=== PATIENT | male | born 1970 | race Two or more races ===

== ENCOUNTER 2020-08-14 11:52 | Outpatient (REF) | payer OTHER, SELFPAY ==
[2020-08-14 12:45] LABS: Basophils Percent Auto 0.5 % (0-2); MANUAL DIFF FLAG SCAN; Neutrophils Absolute Auto 1.1 X10*3/uL (2.0-8.3); PLT CLUMP 1; SCAN SMEAR FLAG 1
[2020-08-14 12:47] LABS: Eosinophils Percent Auto 1.4 % (0-4); Hematocrit 41.8 % (42-52); Hemoglobin 14.2 g/dl (14.0-18.0); Imm Gran Abs Auto 0.01 X10*3/uL (0.00-0.03); Imm Gran Pct Auto 0.5 % (0.0-0.4); Lymphocytes Absolute Auto 0.7 X10*3/uL (1.2-4.9); Lymphocytes Percent Auto 33.3 % (20-40); Mean Corpuscular Hemoglobin 29.9 pg (27.0-33.0); Mean Platelet Volume 10.7 fL (9.4-12.4); Monocytes Absolute Auto 0.2 X10*3/uL (0.1-1.2); Monocytes Percent Auto 10.6 % (2-11); Neutrophils Percent Auto 53.7 % (45-73); Red Blood Count 4.75 X10*6/uL (4.60-5.80)
[2020-08-14 12:49] LABS: Appearance Urine CLEAR; Color Urine YELLOW; Glucose Urine UA >=1000 MG/DL (NEG); Leukocyte Esterase Urine NEG (NEG); Nitrite Urine NEG (NEG); Urine Blood NEG (NEG); Urine Ketones NEG (NEG); Urine Protein NEG (NEG-TRACE)
[2020-08-14 12:50] LABS: Platelet Count 50 X10*3/uL (160-400); White Blood Count 2.1 X10*3/uL (4.8-10.8)
[2020-08-14 12:57] LABS: RBC Urine 0 /HPF (0); WBC Urine 0 /HPF (0-4)
[2020-08-14 13:18] LABS: Alanine Aminotransferase 25 U/L (0-40); Albumin Level 3.7 g/dL (3.5-5.0); Alkaline Phosphatase 149 U/L (39-117); Anion Gap 11 (12-20); Aspartate Amino Transferase 27 U/L (5-37); Bilirubin Total 1.1 mg/dL (0.0-1.0); Blood Urea Nitrogen 10 mg/dL (9-16); Calcium 8.5 mg/dL (8.4-10.2); Carbon Dioxide 29 mmol/L (22-29); Chloride 99 mmol/L (96-108); Cholesterol 185 mg/dL; Estimated Glomerular Filt Rate > 60; Glucose Fasting 332 mg/dL (60-99); HDL Cholesterol 29 mg/dL; Potassium 4.1 mmol/l (3.3-5.1); Sodium 135 mmol/L (135-145); Triglycerides 431 mg/dL
[2020-08-14 13:20] LABS: SLIDE REVIEW VERIFIED
[2020-08-14 13:32] LABS: TSH reflex Free T4 1.67 mIU/mL (0.32-4.0)
== END 2020-08-14 11:53 | disposition home or self-care (01) ==
LOC: HO.LAB 11:52
PROVIDERS: PCP Internal Medicine; Visit Provider Internal Medicine
DX: E78.5 Hyperlipidemia, unspecified (principal); E66.9 Obesity, unspecified; E55.9 Vitamin D deficiency, unspecified; D69.6 Thrombocytopenia, unspecified; D70.9 Neutropenia, unspecified; E11.9 Type 2 diabetes mellitus without complications; R16.1 Splenomegaly, not elsewhere classified
CPT/HCPCS: 36415; 80053; 80061; 81001; 82306; 84443; 85025; 85060

== ENCOUNTER 2021-11-06 13:30 | Outpatient (REF) | payer OTHER, SELFPAY ==
[2021-11-06 14:47] LABS: PLT CLUMP 1; SCAN SMEAR FLAG 1
[2021-11-06 14:48] LABS: Appearance Urine CLEAR; Color Urine YELLOW; Glucose Urine UA >=1000 MG/DL (NEG); Leukocyte Esterase Urine NEG (NEG); Nitrite Urine NEG (NEG); PH 6.5 (5.0-8.0); Urine Blood NEG (NEG); Urine Ketones NEG (NEG); Urine Protein NEG (NEG-TRACE)
[2021-11-06 14:49] LABS: Eosinophils Percent Auto 0.8 % (0-4); Hematocrit 42.7 % (42.0-52.0); Hemoglobin 14.6 g/dl (14.0-18.0); Imm Gran Abs Auto 0.01 X10*3/uL (0.00-0.03); Imm Gran Pct Auto 0.8 % (0.0-0.4); Lymphocytes Absolute Auto 0.5 X10*3/uL (1.2-4.9); Lymphocytes Percent Auto 35.9 % (20-40); MANUAL DIFF FLAG SCAN; Mean Corpuscular HGB Conc 34.2 g/dl (31.0-36.0); Mean Corpuscular Hemoglobin 30.2 pg (27.0-33.0); Mean Corpuscular Volume 88.4 fL (80.0-98.0); Monocytes Absolute Auto 0.2 X10*3/uL (0.1-1.2); Monocytes Percent Auto 11.7 % (2-11); Neutrophils Absolute Auto 0.7 x10*3/uL (2.0-8.3); Neutrophils Percent Auto 50.8 % (45-73); Red Blood Count 4.83 X10*6/uL (4.60-5.80); Red Cell Distribution Width 12.7 % (11.0-16.0)
[2021-11-06 14:54] LABS: RBC Urine 0 /HPF (0); Squamous Epithelial Cell Urine TRACE /LPF; WBC Urine 0-2 /HPF (0-4)
[2021-11-06 14:57] LABS: Estimated Average Glucose 269 mg/dL
[2021-11-06 14:58] LABS: Platelet Count 47 X10*3/uL (160-400)
[2021-11-06 14:59] LABS: White Blood Count 1.3 X10*3/uL (4.8-10.8)
[2021-11-06 15:10] LABS: Creatinine Urine 59.65 mg/dL; Microalbumin Urine < 5.0 mg/L
[2021-11-06 15:13] LABS: SLIDE REVIEW VERIFIED
[2021-11-06 15:37] LABS: TSH reflex Free T4 1.23 uIU/mL (0.32-4.0); Vitamin D 25-OH Total 9.5 ng/mL (>30)
[2021-11-06 15:41] LABS: Alanine Aminotransferase 33 U/L (0-40); Albumin Level 3.7 g/dL (3.5-5.0); Alkaline Phosphatase 130 U/L (39-117); Anion Gap 13 (12-20); Aspartate Amino Transferase 38 U/L (5-37); Bilirubin Total 1.2 mg/dL (0.0-1.0); Blood Urea Nitrogen 11 mg/dL (9-16); Calcium 9.2 mg/dL (8.4-10.2); Carbon Dioxide 29 mmol/L (22-29); Chloride 101 mmol/L (96-108); Cholesterol 163 mg/dL; Estimated Glomerular Filt Rate > 60; Glucose Fasting 339 mg/dL (60-99); HDL Cholesterol 20 mg/dL; Potassium 3.7 mmol/L (3.3-5.1); Sodium 139 mmol/L (135-145); Total Protein 7.1 g/dL (6.5-8.0); Triglycerides 467 mg/dL
== END 2021-11-06 13:31 | disposition home or self-care (01) ==
LOC: HO.LAB 13:30
PROVIDERS: PCP Internal Medicine; Visit Provider Internal Medicine
DX: I10 Essential (primary) hypertension (principal); E55.9 Vitamin D deficiency, unspecified; E78.00 Pure hypercholesterolemia, unspecified; E11.9 Type 2 diabetes mellitus without complications
CPT/HCPCS: 36415; 80053; 80061; 81001; 82043; 82306; 83036; 84443; 85025

== ENCOUNTER 2022-02-18 14:55 | Outpatient (REF) | payer OTHER, SELFPAY ==
[2022-02-18 15:55] LABS: Basophils Absolute Auto 0.1 X10*3/uL (0.0-0.2); Basophils Percent Auto 0.8 % (0-2); Eosinophils Absolute Auto 0.3 X10*3/uL (0.0-0.4); Eosinophils Percent Auto 2.1 % (0-4); Hematocrit 37.6 % (42.0-52.0); Hemoglobin 13.4 g/dl (14.0-18.0); Imm Gran Abs Auto 0.28 X10*3/uL (0.00-0.03); Imm Gran Pct Auto 2.1 % (0.0-0.4); Lymphocytes Absolute Auto 1.1 X10*3/uL (1.2-4.9); Lymphocytes Percent Auto 7.9 % (20-40); MANUAL DIFF FLAG SCAN; Mean Corpuscular HGB Conc 35.6 g/dl (31.0-36.0); Mean Corpuscular Hemoglobin 29.3 pg (27.0-33.0); Mean Corpuscular Volume 82.1 fL (80.0-98.0); Mean Platelet Volume 9.6 fL (9.4-12.4); Monocytes Absolute Auto 1.7 X10*3/uL (0.1-1.2); Monocytes Percent Auto 12.3 % (2-11); Neutrophils Absolute Auto 10.1 x10*3/uL (2.0-8.3); Neutrophils Percent Auto 74.8 % (45-73); Platelet Count 130 X10*3/uL (160-400); Red Blood Count 4.58 X10*6/uL (4.60-5.80); SCAN SMEAR FLAG 1; White Blood Count 13.5 X10*3/uL (4.8-10.8)
[2022-02-18 16:02] LABS: Estimated Average Glucose 194 mg/dL; Hemoglobin A1c % 8.4 %
[2022-02-18 16:23] LABS: SLIDE REVIEW VERIFIED
[2022-02-18 16:28] LABS: Alanine Aminotransferase 15 U/L (0-40); Albumin Level 3.1 g/dL (3.5-5.0); Alkaline Phosphatase 163 U/L (39-117); Anion Gap 15 (12-20); Aspartate Amino Transferase 25 U/L (5-37); Bilirubin Total 2.6 mg/dL (0.0-1.0); Blood Urea Nitrogen 10 mg/dL (9-16); Calcium 8.6 mg/dL (8.4-10.2); Carbon Dioxide 25 mmol/L (22-29); Chloride 88 mmol/L (96-108); Cholesterol 66 mg/dL; Estimated Glomerular Filt Rate > 60; Glucose Random 360 mg/dL (60-115); HDL Cholesterol 5 mg/dL; LDL Cholesterol Calculated 29 mg/dl; Sodium 124 mmol/L (135-145); Total Protein 6.2 g/dL (6.5-8.0); Triglycerides 163 mg/dL
[2022-02-18 16:33] LABS: TSH reflex Free T4 1.98 uIU/mL (0.32-4.0); Vitamin D 25-OH Total 8.5 ng/mL (>30)
[2022-02-18 17:31] LABS: Appearance Urine CLEAR; Color Urine YELLOW; Glucose Urine UA >=1000 MG/DL (NEG); Leukocyte Esterase Urine NEG (NEG); Nitrite Urine NEG (NEG); Specific Gravity - Urine <= 1.005 (1.005-1.025); Urine Blood NEG (NEG); Urine Ketones 5 MG/DL (NEG); Urine Protein NEG (NEG-TRACE)
[2022-02-18 17:53] LABS: RBC Urine 0-2 /HPF (0); Squamous Epithelial Cell Urine TRACE /LPF; WBC Urine 0-2 /HPF (0-4)
[2022-02-19 07:13] LABS: Creatinine Urine 69.66 mg/dL; Microalbumin Urine < 5.0 mg/L
== END 2022-02-18 14:56 | disposition home or self-care (01) ==
LOC: HO.LAB 14:55
PROVIDERS: PCP Internal Medicine; Visit Provider Internal Medicine
DX: I10 Essential (primary) hypertension (principal); L03.115 Cellulitis of right lower limb; E78.00 Pure hypercholesterolemia, unspecified; E11.9 Type 2 diabetes mellitus without complications; E55.9 Vitamin D deficiency, unspecified
CPT/HCPCS: 36415; 80053; 80061; 81001; 81003; 82043; 82306; 83036; 84443; 85025

== ENCOUNTER 2022-04-09 17:16 | Emergency (ER) | payer OTHER, SELFPAY ==
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
[2022-04-09 17:32] VITALS: BP 154/79; PULSE 100; RESP 19; TEMP 36.6; O2SAT 98; BMI 24.3
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
[2022-04-09] MEDS: Cyclobenzaprine HCl 10 MG TABLET PO (18:34)
== END 2022-04-09 19:23 | disposition home or self-care (01) ==
PROVIDERS: Emergency Provider Emergency Medicine; PCP Internal Medicine
DX: S13.4XXA Sprain of ligaments of cervical spine, initial encounter (principal); V43.52XA Car driver injured in collision with other type car in traffic accident, initial encounter; Y93.9 Activity, unspecified; Y92.410 Unspecified street and highway as the place of occurrence of the external cause; Y99.9 Unspecified external cause status
CPT/HCPCS: 73030; 99283

== ENCOUNTER 2023-03-09 13:40 | Outpatient (AMB) | payer OTHER, SELFPAY ==
[2023-03-09 13:51] VITALS: BP 160/90; PULSE 94; O2SAT 99; BMI 28.5
--- NOTE | 2023-03-09 13:51 | MHC.PC.OV ---
Vital Signs 03/09/23 13:51 Height 5 ft 7 in Weight 182 lb BMI 28.5 BP 160/90 H Blood Pressure Location Lt brachial Position Sitting Pulse 94 Pulse Source Pulse Oximeter Pulse Oximetry (%) 99 Oxygen Delivery Method Room Air Intake Visit Reasons: PE Intake Note: Patient is here for a phyisical exam. Pharmaceutical Assistant Required: No Accompanied by: Self / Same As Patient Allergies penicillin G Allergy (Unknown, Verified 05/26/24 13:13) hives Medication List - Last Reconciled 03/09/23 by Jony Hernandez MD albuterol sulfate 90 mcg/actuation (ProAir HFA) 2 puffs PO QID PRN 30 days blood sugar diagnostic (FreeStyle Lite Strips) 1 strip miscellaneous TID blood sugar diagnostic (FreeStyle Lite Strips) As directed - test 3 times a day before meals blood-glucose meter (FreeStyle Lite Meter kit) As directed - test 3 times a day before meals to dose Humalog buprenorphine-naloxone 8-2 mg 3 film sublingual Q OTHER DAY PRN cyclobenzaprine 10 mg PO TID PRN doxycycline monohydrate 100 mg PO BID 10 days fenofibrate nanocrystallized 145 mg PO DAILY fluticasone propionate 220 mcg/actuation 2 puffs PO BID 30 days insulin aspart U-100 (Novolog FlexPen U-100 Insulin aspart) Inject up to 10 to 12 units 3 times a day with meals PER SLIDING SCALE subcut 3 times a day; 30 days insulin glargine (Lantus Solostar U-100 Insulin) 30 units (0.3 mL) subcut DAILY 30 days lancets As directed lancets (FreeStyle Lancets) As directed - test 3 times a day before meals lorazepam 0.5 mg PO BID PRN 30 days pen needle, diabetic As directed quetiapine 200 mg PO BEDTIME Tobacco use date assessed: 03/09/23 HPI PE HPI Details Patient comes in today for his annual physical examination - was last seen over a year ago on 02/18/2022 Patient states that he feels okay He denies any headaches or dizziness Denies any chest pains, no SOB No nausea/vomiting, no abdominal pain No change in bowel habits noted He denies any acute urinary symptoms He had the chronically infected hardware in his right thigh removed successfully back in December 2023 - states that his right thigh/right lower extremity has been feeling a lot better since He has not had a screening colonoscopy done in the past REPLACED BY [facility] Medical History (Updated 05/28/24 @ 18:42 by Jony Hernandez MD) Essential hypertension Broken femur Obesity (BMI 30-39.9) Thrombocytopenia Splenomegaly Overweight (BMI 25.0-29.9) Depression Anxiety Insomnia History of substance abuse Vitamin D deficiency History of hepatitis C Mixed hyperlipidemia Asthma Diabetes mellitus Surgical History No pertinent past surgical history Family History Father Liver failure Diabetes Hypertension CVD (cardiovascular disease) Mother Medical history unknown Social History Housing: Apartment Alcohol intake: never Patient Tobacco Use Status: Former Tobacco user e-Cigarette/Vaping Use: Never Used Second Hand Smoke Exposure: Yes service: No Current occupational status: disabled Cognitive needs: No Hearing needs: No Vision needs: Yes Questionnaire PHQ-9 Over the last 2 weeks, how often have you been bothered by any of the following problems? 1. Little interest or pleasure in doing things: several days 2. Feeling down, depressed, or hopeless: several days 3. Trouble falling or staying asleep, or sleeping too much: several days 4. Feeling tired or having little energy: several days 5. Poor appetite or overeating: several days 6. Feeling bad about yourself - or that you are a failure or have let yourself or your family down: not at all 7. Trouble concentrating on things, such as reading the newspaper or watching television: not at all 8. Moving or speaking so slowly that other people could have noticed. Or the opposite - being so fidgety or restless that you have been moving around a lot more than usual: not at all 9. Thoughts that you would be better off or of hurting yourself in some way: not at all Total score: 5 Depression Screening Interpretation: Positive Depression Screening Follow-up: Existing condition and In treatment 80625 - PHQ-9 Billing: Yes Source: Developed by Drs. Freddie Chau, Maritza B.Stephen Spears and colleagues, with an educational mt from [employer]. Thrive Questionnaire Date Thrive assessed: 03/09/23 I am a: Patient What is your living situation today?: I have a steady place to live Within the past 12 months, did the food you bought not last and you didn't have the money to get more?: Never true Within the past 12 months, did you worry whether your food would run out before you got money to buy more?: Never true Do you have trouble paying for medicines?: No Do you have trouble getting transportation to medical appointments?: No Do you have trouble paying your heating and electricity bill?: No Do you have trouble taking care of your child, family member or friend?: No Do you have trouble with day-to-day activities such as bathing, preparing meals, shopping, managing finances, etc.?: No Are you currently unemployed and looking for a job?: No Are you interested in more education?: No Please select the resources that you would like help with: None Currently or been in a relationship where the following occur: no concerns reported AUDIT C Alcohol Use Questionnaire (AUDIT-C) 1. How often do you have a drink containing alcohol?: Never 3. How often do you have six or more drinks on one occasion?: Never Total Score: 0 Score Reviewed/Action Taken: Yes SVITLANA-7 AMB Questionnaire SVITLANA-7 Date SVITLANA - 7 assessed: 03/09/23 Feeling nervous, anxious, or on edge: 1 = Several days Not being able to stop or control worryin = Several days Worrying too much about different things: 1 = Several days Trouble relaxin = Several days Being so restless that it is hard to sit still: 1 = Several days Becoming easily annoyed or irritable: 1 = Several days Feeling afraid as if something awful might happen: 1 = Several days Total SVITLANA-7 score (0-4 normal; 5-9 mild; 10-14 moderate; 15-21 severe): 7 Source: Developed by Drs. Freddie Chau, Stephen Mejias and colleagues, with an educational mt from [employer]. Review of Systems Const Denies chills, Denies fatigue, Denies fever(s), Denies headache(s), Denies malaise and Denies weakness Eyes Denies blurry vision, Denies change in vision, Denies irritation and Denies itchy eyes ENT Denies dysphagia, Denies dizziness, Denies otalgia, Denies headache(s), Denies nasal congestion, Denies neck pain, Denies odynophagia and Denies sore throat Card Denies chest pain, Denies rapid heart rate, Denies irregular heart rhythm, Denies palpitations and Denies dyspnea Resp Denies chest congestion, Denies cough, Denies dyspnea and Denies wheezing GI Denies abdominal pain, Denies bloating, Denies constipation, Denies dysphagia, Denies heartburn, Denies diarrhea, Denies nausea, Denies odynophagia and Denies vomiting Denies hematuria, Denies difficulty urinating, Denies dysuria, Denies urinary frequency and Denies urinary urgency Musc Denies back pain, Denies arthralgias, Denies joint swelling, Denies muscle weakness and Denies neck pain Skin/Breast Denies change in pigmentation, Denies lesions, Denies rash and Denies unusual bruising Neuro Denies dizziness, Denies headache(s), Denies paresthesias and Denies weakness Endo Denies fatigue and Denies palpitations Aller/Immun Denies itchy eyes and Denies wheezing Physical exam (Primary Care) Vital Signs: Last Vital Signs Pulse 94 03/09/23 13:51 BP 160/90 H 03/09/23 13:51 Pulse Ox 99 03/09/23 13:51 Oxygen Delivery Method Room Air 03/09/23 13:51 BMI result Body Mass Index 28.5 Tobacco/Smoking Status: Tobacco use Status Tobacco use date assessed 03/09/23 03/09/23 13:55 Patient Tobacco Use Status Former Tobacco user 03/09/23 13:55 e-Cigarette/Vaping Use Never Used 03/09/23 13:55 PHQ-9: PHQ-9 Score PHQ-9: Total score 5 08/17/23 19:16 Depression Screening Interpretation: Positive Depression Screening Follow-up: Existing condition and In treatment Thrive Assessment: Date of Thrive Assessment Date Thrive assessed 03/09/23 03/09/23 13:55 Currently or been in a relationship where the following occur: no concerns reported Const General: no acute distress, alert and awake Orientation/consciousness: patient oriented x3 HENMT Head: Yes normocephalic and Yes atraumatic Ears: external ears normal, TM's normal bilaterally and EAC's normal General nose exam: No nasal discharge present Face and sinus: Yes normal facial exam and Yes sinuses nontender Teeth and gingiva: dentition normal Throat: Yes posterior oropharynx normal and Yes tonsils normal (no TP congestion) Eyes Eyelids: Yes eyelids normal Conjunctivae: conjunctivae normal Pupils: Equal, round and reactive pupils present EOM: EOMs intact bilaterally Neck Neck: Yes no lymphadenopathy and Yes supple Thyroid: Thyroid normal Resp Auscultation: clear to auscultation bilaterally, no rales and no wheezes Cardio Rate: regular rate Rhythm: regular rhythm Heart sounds: no murmurs GI Palpation (GI): Soft to palpation, nontender and No hepatosplenomegaly present Auscultation: normal bowel sounds General: Yes no CVA tenderness Back/Spine/Pelvis Back: no CVA tenderness Thoracic/Lumbar Spine: thoracic and lumbar spine normal to inspection Skin Lesions: no lesions Rashes: no rashes Neuro General: patient oriented x3, moves all extremities, no focal motor deficits and CN's II-XI intact bilaterally Cranial nerves: Yes Equal, round and reactive pupils present Cognition (Neuro): normal cognition Gait exam (Neuro): Normal gait present Extrem General: Yes no clubbing, cyanosis or edema Assessment and Plan Assessment & Plan (1) Annual physical exam: Code(s): Z00.00 - Encounter for general adult medical examination without abnormal findings Plan: Check labs He has not had a screening colonoscopy done in the past (2) Diabetes mellitus: Code(s): E11.9 - Type 2 diabetes mellitus without complications Qualifiers: Diabetes mellitus complication status: with hyperglycemia 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 Jimenez) at [facility] as scheduled (3) Mixed hyperlipidemia: Code(s): E78.2 - Mixed hyperlipidemia Plan: Will recheck his fasting lipids [facility] for follow up Reinforced low cholesterol diet Continue Fenofibrate 145 mg QD (4) Essential hypertension: Code(s): I10 - Essential (primary) hypertension Plan: Reinforced low sodium diet - goal is systolic BP of at least 130 mm or less Will start patient on Losartan 50 mg QD (5) Asthma: Code(s): J45.909 - Unspecified asthma, uncomplicated Qualifiers: Asthma complication type: uncomplicated Asthma persistence: persistent Asthma severity: moderate Qualified Code(s): J45.40 - Moderate persistent asthma, uncomplicated Plan: Stable Continue Flovent HFA 110 mcg 1 inhalation BID and ProAir HFA 2 inhalations every 6 hours as needed (6) History of hepatitis C: Code(s): Z86.19 - Personal history of other infectious and parasitic diseases Plan: S/P Tx - Hepatitis C viral load was negligible when last checked Follow up with [facility] as scheduled for continuing follow up and surveillance (7) Vitamin D deficiency: Code(s): E55.9 - Vitamin D deficiency, unspecified Plan: Continue Vitamin D2 49746 units once a week (8) History of substance abuse: Code(s): F19.11 - Other psychoactive substance abuse, in remission Plan: Continue Suboxone 8-2 mg 3 films SL QD Follow up with [facility] as scheduled (9) Splenomegaly: Code(s): R16.1 - Splenomegaly, not elsewhere classified Plan: Asymptomatic - will continue to monitor (10) Thrombocytopenia: Code(s): D69.6 - Thrombocytopenia, unspecified Plan: Stable - is mostly due to his splenomegaly Was seen and evaluated previously by hematology - as patient is asymptomatic and his thrombocytopenia is stable with no acute bleeding issues, will need to follow up with them only as needed Will continue to monitor platelet count and CBC regularly (11) Insomnia: Code(s): G47.00 - Insomnia, unspecified Qualifiers: Insomnia type: unspecified Qualified Code(s): G47.00 - Insomnia, unspecified Plan: Sleep hygiene reinforced Seroquel at bedtime helps with his sleep (12) Anxiety: Code(s): F41.9 - Anxiety disorder, unspecified Plan: Continue Clonidine 0.1 mg TID PRN (13) Depression: Code(s): F32.9 - Major depressive disorder, single episode, unspecified Qualifiers: Active/Remission status: currently active Depression Type: major depressive disorder Major depression episode severity: unspecified Major depression recurrence: recurrent Qualified Code(s): F33.9 - Major depressive disorder, recurrent, unspecified Plan: Continue Quetiapine 200 mg Q HS Follow up with psychiatry as scheduled (14) Obesity (BMI 30-39.9): Code(s): E66.9 - Obesity, unspecified Plan: Reinforced diet/exercise as tolerated/lose weight (15) Colon cancer screening: Code(s): Z12.11 - Encounter for screening for malignant neoplasm of colon Plan: He has never had a screening colonoscopy done in the past and does not wish to have one done now BUT is agreeable to getting Cologuard testing if covered by his insurance Cologuard test ordered Plan Follow up in 3 months Orders: Orders Complete Blood Count Auto Diff 03/09/23 I10 - Essential (primary) hypertension, Z00.00 - Encounter for general adult medical examination without abnormal findings UA CC w/rflx Micro + Cult 03/09/23 R30.0 - Dysuria, Z00.00 - Encounter for general adult medical examination without abnormal findings TSH reflex Free T4 03/09/23 E78.00 - Pure hypercholesterolemia, unspecified, Z00.00 - Encounter for general adult medical examination without abnormal findings Vitamin D 25-OH Total 03/09/23 E55.9 - Vitamin D deficiency, unspecified, Z00.00 - Encounter for general adult medical examination without abnormal findings Vitamin B12 and Folate 03/09/23 E53.8 - Deficiency of other specified B group vitamins, Z00.00 - Encounter for general adult medical examination without abnormal findings Comprehensive [place]. Panel Fast 03/09/23 E78.00 - Pure hypercholesterolemia, unspecified, Z00.00 - Encounter for general adult medical examination without abnormal findings Lipid Panel 03/09/23 E78.00 - Pure hypercholesterolemia, unspecified, Z00.00 - Encounter for general adult medical examination without abnormal findings Microalbumin, Random (w Creat) 03/09/23 E11.9 - Type 2 diabetes mellitus without complications, Z00.00 - Encounter for general adult medical examination without abnormal findings Hemoglobin A1c 03/09/23 E11.9 - Type 2 diabetes mellitus without complications, Z00.00 - Encounter for general adult medical examination without abnormal findings Referrals Cologuard Test Z12.11 - Encounter for screening for malignant neoplasm of colon Medications: New losartan 50 mg PO DAILY 90 tabs 1RF 90 days Review Patient declined Colonoscopy: 03/09/23 (agrees to do Cologuard at this time) Coding Level of Care Code Est Pt Prev Care 40-64y(94550) Diagnoses Annual physical exam Z00.00 Type 2 diabetes mellitus with hyperglycemia, with long-term current use of insulin E11.65; Z79.4 Diabetes mellitus complication status: with hyperglycemia Diabetes mellitus penitentiary insulin use: with penitentiary use Diabetes mellitus type: type 2 Mixed hyperlipidemia E78.2 Essential hypertension I10 Moderate persistent asthma without complication J45.40 Asthma complication type: uncomplicated Asthma persistence: persistent Asthma severity: moderate History of hepatitis C Z86.19 Vitamin D deficiency E55.9 History of substance abuse F19.11 Splenomegaly R16.1 Thrombocytopenia D69.6 Insomnia, unspecified type G47.00 Insomnia type: unspecified Anxiety F41.9 Episode of recurrent major depressive disorder, unspecified depression episode severity F33.9 Active/Remission status: currently active Depression Type: major depressive disorder Major depression episode severity: unspecified Major depression recurrence: recurrent Obesity (BMI 30-39.9) E66.9 Colon cancer screening Z12.11
== END 2023-03-09 14:29 | disposition home or self-care (01) ==
LOC: HO.HMGH 13:40
PROVIDERS: PCP Internal Medicine; Visit Provider Internal Medicine
DX: Z00.00 Encounter for general adult medical examination without abnormal findings (principal); E11.65 Type 2 diabetes mellitus with hyperglycemia; Z79.4 Long term (current) use of insulin; E78.2 Mixed hyperlipidemia; I10 Essential (primary) hypertension; J45.40 Moderate persistent asthma, uncomplicated; Z86.19 Personal history of other infectious and parasitic diseases; E55.9 Vitamin D deficiency, unspecified; F19.11 Other psychoactive substance abuse, in remission; R16.1 Splenomegaly, not elsewhere classified; D69.6 Thrombocytopenia, unspecified; G47.00 Insomnia, unspecified; F41.9 Anxiety disorder, unspecified; F33.9 Major depressive disorder, recurrent, unspecified; E66.9 Obesity, unspecified; Z12.11 Encounter for screening for malignant neoplasm of colon
CPT/HCPCS: 99499

== ENCOUNTER 2023-06-15 11:03 | Outpatient (REF) | payer OTHER, SELFPAY ==
[2023-06-15 11:52] LABS: Eosinophils Absolute Auto 0.1 X10*3/uL (0.0-0.4); Eosinophils Percent Auto 3.4 % (0-4); Hematocrit 39.9 % (42.0-52.0); Hemoglobin 13.4 g/dl (14.0-18.0); Lymphocytes Absolute Auto 0.5 X10*3/uL (1.2-4.9); Lymphocytes Percent Auto 36.7 % (20-40); MANUAL DIFF FLAG SCAN; Mean Corpuscular HGB Conc 33.6 g/dl (31.0-36.0); Mean Corpuscular Hemoglobin 29.3 pg (27.0-33.0); Mean Corpuscular Volume 87.1 fL (80.0-98.0); Mean Platelet Volume 11.6 fL (9.4-12.4); Monocytes Absolute Auto 0.1 X10*3/uL (0.1-1.2); Monocytes Percent Auto 9.5 % (2-11); Neutrophils Absolute Auto 0.7 x10*3/uL (2.0-8.3); Neutrophils Percent Auto 50.4 % (45-73); Red Blood Count 4.58 X10*6/uL (4.60-5.80); Red Cell Distribution Width 13.6 % (11.0-16.0); SCAN SMEAR FLAG 1
[2023-06-15 11:53] LABS: Platelet Count 40 X10*3/uL (160-400); White Blood Count 1.5 X10*3/uL (4.8-10.8)
[2023-06-15 12:05] LABS: Appearance Urine Clear; Color Urine Dark Yellow; Glucose Urine UA >=1000 mg/dL (Negative); Leukocyte Esterase Urine Negative (Negative); Nitrite Urine Negative (Negative); Specific Gravity - Urine >= 1.030 (1.005-1.025); UMIC TRIGGER UACC YES; Urine Blood Negative (Negative); Urine Ketones Negative (Negative); Urine Protein Negative (Neg-Trace)
[2023-06-15 12:12] LABS: Bacteria Urine None Seen (None Seen); Hyaline Casts Urine 0-2 /LPF (0-2); RBC Urine 0-2 /HPF (0-2); Squamous Epithelial Cell Urine 0-2 /HPF (0-2); WBC Urine 0-5 /HPF (0-5)
[2023-06-15 12:20] LABS: Creatinine Urine 148.51 mg/dL; Microalbum/Creatinine Ratio Ur 12.7 ug/mg cr
[2023-06-15 12:31] LABS: SLIDE REVIEW VERIFIED
[2023-06-15 13:28] LABS: Alanine Aminotransferase 25 U/L (0-40); Albumin Level 3.5 g/dL (3.5-5.0); Alkaline Phosphatase 140 U/L (39-117); Anion Gap 11 (12-20); Aspartate Amino Transferase 32 U/L (5-37); Bilirubin Total 1.6 mg/dL (0.0-1.0); Blood Urea Nitrogen 9 mg/dL (9-16); Carbon Dioxide 30 mmol/L (22-29); Chloride 101 mmol/L (96-108); Cholesterol 141 mg/dL; Estimated Glomerular Filt Rate > 60; Glucose Fasting 256 mg/dL (60-99); HDL Cholesterol 46 mg/dL; LDL Cholesterol Calculated 74 mg/dl; Potassium 3.6 mmol/L (3.3-5.1); Sodium 138 mmol/L (135-145); Triglycerides 108 mg/dL
[2023-06-15 13:44] LABS: TSH reflex Free T4 1.78 uIU/mL (0.32-4.0); Vitamin D 25-OH Total 12.9 ng/mL (>30)
[2023-06-15 13:59] LABS: Folate 11.6 ng/mL (> or = 4.0); Vitamin B12 770 pg/mL (200-900)
[2023-06-15 14:10] LABS: Estimated Average Glucose 240 mg/dL
== END 2023-06-15 11:04 | disposition home or self-care (01) ==
LOC: HO.LAB 11:03
PROVIDERS: PCP Internal Medicine; Visit Provider Internal Medicine
DX: Z00.00 Encounter for general adult medical examination without abnormal findings (principal); E55.9 Vitamin D deficiency, unspecified; E11.9 Type 2 diabetes mellitus without complications; E78.00 Pure hypercholesterolemia, unspecified; E53.8 Deficiency of other specified B group vitamins; I10 Essential (primary) hypertension
CPT/HCPCS: 36415; 80053; 80061; 81001; 82043; 82306; 82607; 82746; 83036; 84443; 85025

== ENCOUNTER 2023-12-23 10:39 | Outpatient (AMB) | payer OTHER, SELFPAY ==
[2023-12-23 10:48] VITALS: BP 134/68; PULSE 81; O2SAT 95; BMI 28.2
--- NOTE | 2023-12-23 10:48 | MHC.PC.OV ---
Vital Signs 12/23/23 10:48 Height 5 ft 7 in Weight 180 lb 2 oz BMI 28.2 BP 134/68 Blood Pressure Location Lt brachial Position Sitting Pulse 81 Pulse Source Pulse Oximeter Pulse Oximetry (%) 95 Oxygen Delivery Method Room Air Intake Visit Reasons: f/u [place] Required: No Accompanied by: Self / Same As Patient Allergies penicillin G Allergy (Unknown, Verified 12/23/23 11:12) hives Medication List - Last Reconciled 12/23/23 by Jony Hernandez MD albuterol sulfate 90 mcg/actuation (ProAir HFA) 2 puffs PO QID PRN 30 days blood sugar diagnostic (FreeStyle Lite Strips) 1 strip miscellaneous TID blood sugar diagnostic (FreeStyle Lite Strips) As directed - test 3 times a day before meals blood-glucose meter (FreeStyle Lite Meter kit) As directed - test 3 times a day before meals to dose Humalog buprenorphine-naloxone 8-2 mg 3 film sublingual Q OTHER DAY PRN cyclobenzaprine 10 mg PO TID PRN fenofibrate nanocrystallized 145 mg PO DAILY insulin aspart U-100 (Novolog FlexPen U-100 Insulin aspart) Inject up to 10 to 12 units 3 times a day with meals PER SLIDING SCALE subcut 3 times a day; 30 days insulin glargine (Lantus Solostar U-100 Insulin) 30 units (0.3 mL) subcut DAILY 30 days lancets As directed lancets (FreeStyle Lancets) As directed - test 3 times a day before meals lorazepam 0.5 mg PO BID PRN 30 days losartan 50 mg PO DAILY 90 days mometasone 100 mcg/actuation (Asmanex HFA) 1 puff inhalation BID pen needle, diabetic As directed quetiapine 200 mg PO BEDTIME Tobacco use date assessed: 12/23/23 Dental Screening Dental Screen Date: 12/23/23 Did you have a dental visit in the last 12 months?: No Did you have a dental problem in the last 6 months where you did not have access to dental care?: No Was dental information given to patient?: No HPI f/u HPI Details Patient comes in today for his follow up visit - has not been seen since his annual physical exam on 03/09/2023 Patient states that he feels okay He denies any headaches or dizziness Denies any chest pains, no SOB No nausea/vomiting, no abdominal pain No change in bowel habits noted He has no recent follow up labs done - labs were last done in June 2023 Patient also admits that he has not been taking his insulin injections lately States that he would take his injections and then check his blood sugar afterwards and still finds then high and figured that his meds do not appear to be working so he does not see the need to continue taking them (!) He was seeing Dr. Jimenez before for endocrinology follow up and has not been seen for his diabetes in a while He also has not really been compliant with his appointments here and comes in on average once a year or two and some of his appointments were actually forced as we have advised him that we will no longer continue refilling his Rx IF he does not show up for his appointment as scheduled so it is hard to keep track of how he has been doing with his meds, his diabetes control as well as compliance with appointments with his other specialists He admits that he has also not seen any psychiatrist/therapist/counselor in a few years now [facility] Medical History Broken femur Obesity (BMI 30-39.9) Thrombocytopenia Splenomegaly Overweight (BMI 25.0-29.9) Depression Anxiety Insomnia History of substance abuse Vitamin D deficiency History of hepatitis C Mixed hyperlipidemia Asthma Diabetes mellitus Surgical History No pertinent past surgical history Family History Father Liver failure Diabetes Hypertension CVD (cardiovascular disease) Mother Medical history unknown Social History Housing: Apartment Alcohol intake: never Patient Tobacco Use Status: Former Tobacco user e-Cigarette/Vaping Use: Never Used Second Hand Smoke Exposure: Yes service: No Current occupational status: disabled Cognitive needs: No Hearing needs: No Vision needs: Yes Questionnaire PHQ-9 Over the last 2 weeks, how often have you been bothered by any of the following problems? 1. Little interest or pleasure in doing things: several days 2. Feeling down, depressed, or hopeless: several days 3. Trouble falling or staying asleep, or sleeping too much: several days 4. Feeling tired or having little energy: several days 5. Poor appetite or overeating: several days 6. Feeling bad about yourself - or that you are a failure or have let yourself or your family down: not at all 7. Trouble concentrating on things, such as reading the newspaper or watching television: not at all 8. Moving or speaking so slowly that other people could have noticed. Or the opposite - being so fidgety or restless that you have been moving around a lot more than usual: not at all 9. Thoughts that you would be better off or of hurting yourself in some way: not at all Total score: 5 Depression Screening Interpretation: Positive Depression Screening Follow-up: Existing condition and In treatment Depression Screening Done: Yes 39368 - PHQ-9 Billing: Yes Source: Developed by Drs. Freddie Chau, Maritza Wright, Stephen Wisdom and colleagues, with an educational mt from [employer]. Thrive Questionnaire Date Thrive assessed: 12/23/23 I am a: Patient What is your living situation today?: I have a steady place to live Within the past 12 months, did the food you bought not last and you didn't have the money to get more?: Never true Within the past 12 months, did you worry whether your food would run out before you got money to buy more?: Never true Do you have trouble paying for medicines?: No Do you have trouble getting transportation to medical appointments?: No Do you have trouble paying your heating and electricity bill?: No Do you have trouble taking care of your child, family member or friend?: No Do you have trouble with day-to-day activities such as bathing, preparing meals, shopping, managing finances, etc.?: No Are you currently unemployed and looking for a job?: No Are you interested in more education?: No Please select the resources that you would like help with: None Currently or been in a relationship where the following occur: no concerns reported THRIVE Score: 0 AUDIT C Alcohol Use Questionnaire (AUDIT-C) 1. How often do you have a drink containing alcohol?: Never 3. How often do you have six or more drinks on one occasion?: Never Total Score: 0 Score Reviewed/Action Taken: Yes SVITLANA-7 AMB Questionnaire SVITLANA-7 Date SVITLANA - 7 assessed: 12/23/23 Feeling nervous, anxious, or on edge: 1 = Several days Not being able to stop or control worryin = Several days Worrying too much about different things: 1 = Several days Trouble relaxin = Several days Being so restless that it is hard to sit still: 1 = Several days Becoming easily annoyed or irritable: 1 = Several days Feeling afraid as if something awful might happen: 1 = Several days Total SVITLANA-7 score (0-4 normal; 5-9 mild; 10-14 moderate; 15-21 severe): 7 Source: Developed by Drs. Freddie Chau, Maritza Wright, Stephen Wisdom and colleagues, with an educational mt from [employer]. Review of Systems Const Denies chills, Reports fatigue, Denies fever(s) and Denies headache(s) ENT Denies dysphagia, Denies dizziness, Denies otalgia, Denies headache(s), Denies neck pain, Denies odynophagia, Denies sinus pain and Denies sore throat Card Denies chest pain, Denies palpitations and Denies dyspnea Resp Denies cough, Denies dyspnea and Denies wheezing GI Denies abdominal pain, Denies constipation, Denies dysphagia, Denies heartburn, Denies diarrhea, Denies nausea, Denies odynophagia and Denies vomiting Denies difficulty urinating, Denies dysuria, Reports nocturia and Reports urinary frequency Musc Denies back pain, Denies arthralgias and Denies neck pain Skin/Breast Denies rash Neuro Denies dizziness and Denies headache(s) Psych Reports anxiety Endo Reports fatigue and Denies palpitations Aller/Immun Denies wheezing Physical exam (Primary Care) Vital Signs: Last Vital Signs Pulse 81 12/23/23 10:48 BP 134/68 12/23/23 10:48 Pulse Ox 95 12/23/23 10:48 Oxygen Delivery Method Room Air 12/23/23 10:48 BMI result Body Mass Index 28.2 Tobacco/Smoking Status: Tobacco use Status Tobacco use date assessed 12/23/23 12/23/23 10:51 Patient Tobacco Use Status Former Tobacco user 12/23/23 10:51 e-Cigarette/Vaping Use Never Used 12/23/23 10:51 PHQ-9: PHQ-9 Score PHQ-9: Total score 5 12/23/23 11:26 Depression Screening Interpretation: Positive Depression Screening Follow-up: Existing condition and In treatment Thrive Assessment: Date of Thrive Assessment Date Thrive assessed 12/23/23 12/23/23 10:51 Currently or been in a relationship where the following occur: no concerns reported Const General: no acute distress and alert HENMT Ears: TM's normal bilaterally and EAC's normal Throat: Yes posterior oropharynx normal and Yes tonsils normal (no TP congestion noted) Neck Neck: Yes no lymphadenopathy and Yes supple Thyroid: Thyroid normal Resp Auscultation: clear to auscultation bilaterally, no rales and no wheezes Cardio Rate: regular rate Rhythm: regular rhythm Heart sounds: no murmurs GI Palpation (GI): Soft to palpation and nontender Auscultation: normal bowel sounds General: Yes no CVA tenderness Back/Spine/Pelvis Back: no CVA tenderness Skin Rashes: no rashes Extrem General: Yes no clubbing, cyanosis or edema Results AMB Hemoglobin A1c AMB Hemoglobin A1c 11.4 % Last Edit by Miriam Man on 12/23/23 11:24 Results Reviewed Results Reviewed: Laboratory Last Values Hgb A1c (Clinic) 11.4 % (4.0-6.0) H 12/23/23 11:16 Laboratory Tests 06/15/23 06/15/23 06/15/23 11:10 11:10 Unknown WBC 1.5 L Hgb 13.4 L Hct 39.9 L Plt Count 40 L D Sodium 138 Potassium 3.6 Creatinine 0.77 Estimated GFR > 60 Fasting Glucose 256 H Hemoglobin A1c % 10.0 Calcium 9.0 Total Bilirubin AST ALT Alkaline Phosphatase 140 H Triglycerides 108 Cholesterol 141 LDL Cholesterol, Calc 74 HDL Cholesterol 46 Vitamin B12 770 25-OH Vitamin D Total 12.9 TSH 1.78 Ur Specific [place] >= 1.030 H Urine Protein Negative Urine Glucose (UA) >=1000 H Urine Blood Negative Microalb/Creat Ratio 12.7 06/15/23 Unknown WBC Hgb Hct Plt Count Sodium Potassium Creatinine Estimated GFR Fasting Glucose Hemoglobin A1c % Calcium Total Bilirubin 1.6 H AST 32 ALT 25 Alkaline Phosphatase Triglycerides Cholesterol LDL Cholesterol, Calc HDL Cholesterol Vitamin B12 25-OH Vitamin D Total TSH Ur Specific [place] Urine Protein Urine Glucose (UA) Urine Blood Microalb/Creat Ratio Assessment and Plan Assessment & Plan (1) Uncontrolled diabetes mellitus with hyperglycemia: Code(s): E11.65 - Type 2 diabetes mellitus with hyperglycemia Qualifiers: Diabetes mellitus type: type 2 Qualified Code(s): E11.65 - Type 2 diabetes mellitus with hyperglycemia Plan: In-office Hgb1c done today is at 11.4% (his HgbA1c was at 10.0% back in June 2023) - goal is at least <7.0% Reinforced diabetic diet Have advised patient to start back on both of his basal and rapid acting insulin at mealtime for now and emphasized to him that he needs to continue on his medications even if he does not feel that they are working and this will allow us to be able to continue to adjust and manage his blood sugar and medications accordingly - he should be on Basaglar 30 units Q HS and Novolog Flexpen 100 units/ml 3 times a day with meals per sliding scale Patient seems at a loss as to what diet he needs to stay on and adhere to - will refer him for nutrition and dietary counseling He was also seeing Dr. Jimenez and the past for endocrinology follow-up but he has not been seen by Dr. Jimenez in at least a couple of years now Will refer him to Endocrinology for an urgent consultation and for further evaluation and management (2) Mixed hyperlipidemia: Code(s): E78.2 - Mixed hyperlipidemia Plan: Will also recheck his fasting lipids JOSE for follow up Reinforced low cholesterol diet Continue Fenofibrate 145 mg QD (3) Asthma: Code(s): J45.909 - Unspecified asthma, uncomplicated Qualifiers: Asthma complication type: uncomplicated Asthma persistence: persistent Asthma severity: moderate Qualified Code(s): J45.40 - Moderate persistent asthma, uncomplicated Plan: Stable Continue Flovent HFA 110 mcg 1 inhalation BID and ProAir HFA 2 inhalations every 6 hours as needed (4) Vitamin D deficiency: Code(s): E55.9 - Vitamin D deficiency, unspecified Plan: Continue Vitamin D2 06060 units once a week (5) Splenomegaly: Code(s): R16.1 - Splenomegaly, not elsewhere classified Plan: Asymptomatic - will continue to monitor this regularly (6) Thrombocytopenia: Code(s): D69.6 - Thrombocytopenia, unspecified Plan: Stable - is mostly due to his splenomegaly Was seen and evaluated previously by hematology - as patient is asymptomatic and his thrombocytopenia is stable with no acute bleeding issues, will need to follow up with them only as needed Will continue to monitor platelet count and CBC regularly (7) History of hepatitis C: Code(s): Z86.19 - Personal history of other infectious and parasitic diseases Plan: S/P Tx - Hepatitis C viral load was negligible when last checked Follow up with [facility] as scheduled for continuing follow up and surveillance (8) History of substance abuse: Code(s): F19.11 - Other psychoactive substance abuse, in remission Plan: Continue Suboxone 8-2 mg 3 films SL QD Follow up with [facility] as scheduled (9) Insomnia: Code(s): G47.00 - Insomnia, unspecified Qualifiers: Insomnia type: unspecified Qualified Code(s): G47.00 - Insomnia, unspecified Plan: Sleep hygiene reinforced Seroquel at bedtime helps with his sleep (10) Anxiety: Code(s): F41.9 - Anxiety disorder, unspecified Plan: Continue Clonidine 0.1 mg TID PRN (11) Depression: Code(s): F32.9 - Major depressive disorder, single episode, unspecified Qualifiers: Active/Remission status: currently active Depression Type: major depressive disorder Major depression episode severity: unspecified Major depression recurrence: recurrent Qualified Code(s): F33.9 - Major depressive disorder, recurrent, unspecified Plan: Continue Quetiapine 200 mg Q HS Follow up with psychiatry as scheduled (12) Overweight (BMI 25.0-29.9): Code(s): E66.3 - Overweight Plan: Reinforced diet/exercise as tolerated/lose weight - patient has lost some weight since his last visit Plan Follow up in 3 months Orders: Orders Complete Blood Count Auto Diff 12/23/23 D64.9 - Anemia, unspecified Comprehensive [place]. Panel Fast 12/23/23 E78.00 - Pure hypercholesterolemia, unspecified Lipid Panel 12/23/23 E78.00 - Pure hypercholesterolemia, unspecified Microalbumin, Random (w Creat) 12/23/23 E11.9 - Type 2 diabetes mellitus without complications TSH reflex Free T4 12/23/23 E78.00 - Pure hypercholesterolemia, unspecified UA CC w/rflx Micro + Cult 12/23/23 R30.0 - Dysuria C Peptide 12/23/23 E11.9 - Type 2 diabetes mellitus without complications Hemoglobin A1c 3 Months E11.9 - Type 2 diabetes mellitus without complications UA CC w/rflx Micro + Cult 3 Months R30.0 - Dysuria TSH reflex Free T4 3 Months E78.00 - Pure hypercholesterolemia, unspecified Complete Blood Count Auto Diff 3 Months D64.9 - Anemia, unspecified AMB Hemoglobin A1c 12/23/23 Z13.9 - Encounter for screening, unspecified Glutamic acid decarboxylase Ab 12/23/23 E11.9 - Type 2 diabetes mellitus without complications Vitamin D 25-OH Total 12/23/23 E55.9 - Vitamin D deficiency, unspecified Prostate Specific Antigen Scr 12/23/23 Z00.00 - Encounter for general adult medical examination without abnormal findings Comprehensive [place]. Panel Fast 3 Months E78.00 - Pure hypercholesterolemia, unspecified Lipid Panel 3 Months E78.00 - Pure hypercholesterolemia, unspecified Microalbumin, Random (w Creat) 3 Months E11.9 - Type 2 diabetes mellitus without complications Vitamin D 25-OH Total 3 Months E55.9 - Vitamin D deficiency, unspecified Referrals Psychiatry Referral F32.9 - Major depressive disorder, single episode, unspecified, F41.9 - Anxiety disorder, unspecified Nutrition/Dietitian Referral E11.65 - Type 2 diabetes mellitus with hyperglycemia Endocrinology Referral E11.65 - Type 2 diabetes mellitus with hyperglycemia Medications: Refilled insulin glargine (Lantus Solostar U-100 Insulin) 30 units (0.3 mL) subcut DAILY 30 days 9 mL 5RF E11.9 - Type 2 diabetes mellitus without complications insulin aspart U-100 (Novolog FlexPen U-100 Insulin aspart) Inject up to 10 to 12 units 3 times a day with meals PER SLIDING SCALE subcut 3 times a day; 30 days 15 mL 5RF E11.9 - Type 2 diabetes mellitus without complications Coding Level of Care Code Est Pt Level 4 (60045) Diagnoses Uncontrolled type 2 diabetes mellitus with hyperglycemia E11.65 Diabetes mellitus type: type 2 Mixed hyperlipidemia E78.2 Moderate persistent asthma without complication J45.40 Asthma complication type: uncomplicated Asthma persistence: persistent Asthma severity: moderate Vitamin D deficiency E55.9 Splenomegaly R16.1 Thrombocytopenia D69.6 History of hepatitis C Z86.19 History of substance abuse F19.11 Insomnia, unspecified type G47.00 Insomnia type: unspecified Anxiety F41.9 Episode of recurrent major depressive disorder, unspecified depression episode severity F33.9 Active/Remission status: currently active Depression Type: major depressive disorder Major depression episode severity: unspecified Major depression recurrence: recurrent Overweight (BMI 25.0-29.9) E66.3
== END 2023-12-23 11:38 | disposition home or self-care (01) ==
PROVIDERS: PCP Internal Medicine; Visit Provider Internal Medicine
DX: E11.65 Type 2 diabetes mellitus with hyperglycemia (principal); D69.6 Thrombocytopenia, unspecified; F19.11 Other psychoactive substance abuse, in remission; F33.9 Major depressive disorder, recurrent, unspecified; E78.2 Mixed hyperlipidemia; J45.40 Moderate persistent asthma, uncomplicated; E55.9 Vitamin D deficiency, unspecified; R16.1 Splenomegaly, not elsewhere classified; Z86.19 Personal history of other infectious and parasitic diseases; G47.00 Insomnia, unspecified; F41.9 Anxiety disorder, unspecified; E66.3 Overweight
CPT/HCPCS: 83036; 99214

== ENCOUNTER 2023-12-23 11:42 | Outpatient (REF) | payer OTHER, SELFPAY ==
[2023-12-23 13:28] LABS: Basophils Percent Auto 0.8 % (0-2); Eosinophils Absolute Auto 0.1 X10*3/uL (0.0-0.4); Hematocrit 37.4 % (42.0-52.0); Hemoglobin 12.4 g/dl (14.0-18.0); Lymphocytes Absolute Auto 0.4 X10*3/uL (1.2-4.9); Lymphocytes Percent Auto 27.8 % (20-40); MANUAL DIFF FLAG SCAN; Mean Corpuscular HGB Conc 33.2 g/dl (31.0-36.0); Mean Corpuscular Hemoglobin 27.5 pg (27.0-33.0); Mean Corpuscular Volume 82.9 fL (80.0-98.0); Mean Platelet Volume 10.7 fL (9.4-12.4); Monocytes Absolute Auto 0.1 X10*3/uL (0.1-1.2); Monocytes Percent Auto 9.5 % (2-11); Neutrophils Absolute Auto 0.7 x10*3/uL (2.0-8.3); Neutrophils Percent Auto 57.9 % (45-73); Red Blood Count 4.51 X10*6/uL (4.60-5.80); Red Cell Distribution Width 13.9 % (11.0-16.0); SCAN SMEAR FLAG 1
[2023-12-23 13:29] LABS: Platelet Count 40 X10*3/uL (160-400); White Blood Count 1.3 X10*3/uL (4.8-10.8)
[2023-12-23 13:38] LABS: Appearance Urine Clear; Color Urine Yellow; Glucose Urine UA >=1000 mg/dL (Negative); Leukocyte Esterase Urine Negative (Negative); Nitrite Urine Negative (Negative); Specific Gravity - Urine >= 1.030 (1.005-1.025); UMIC TRIGGER UACC YES; Urine Blood Negative (Negative); Urine Ketones Negative (Negative); Urine Protein Negative (Neg-Trace)
[2023-12-23 13:46] LABS: Bacteria Urine None Seen (None Seen); Hyaline Casts Urine 0-2 /LPF (0-2); RBC Urine 0-2 /HPF (0-2); Squamous Epithelial Cell Urine 0-2 /HPF (0-2); WBC Urine 0-5 /HPF (0-5)
[2023-12-23 14:01] LABS: SLIDE REVIEW VERIFIED
[2023-12-23 14:03] LABS: Alanine Aminotransferase 26 U/L (0-40); Albumin Level 3.6 g/dL (3.5-5.0); Alkaline Phosphatase 151 U/L (39-117); Anion Gap 14 (12-20); Aspartate Amino Transferase 32 U/L (5-37); Bilirubin Total 1.2 mg/dL (0.0-1.0); Blood Urea Nitrogen 7 mg/dL (9-16); Carbon Dioxide 28 mmol/L (22-29); Chloride 100 mmol/L (96-108); Cholesterol 168 mg/dL (<200); Estimated Glomerular Filt Rate > 60; Glucose Fasting 339 mg/dL (60-99); HDL Cholesterol 43 mg/dL (>40); LDL Cholesterol Calculated 89 mg/dL (<100); Potassium 3.5 mmol/L (3.3-5.1); Sodium 138 mmol/L (135-145); Triglycerides 184 mg/dL (<150)
[2023-12-23 14:06] LABS: Creatinine Urine 81.23 mg/dL; Microalbumin Urine < 5.0 mg/L
[2023-12-23 14:22] LABS: TSH reflex Free T4 1.32 uIU/mL (0.32-4.0); Vitamin D 25-OH Total 10.3 ng/mL (>30)
[2023-12-24 10:14] LABS: C Peptide 2.06 ng/mL (0.80-3.85)
[2023-12-26 15:29] LABS: Glutamic acid decarboxylase Ab <5 IU/mL (<5)
== END 2023-12-23 11:43 | disposition home or self-care (01) ==
LOC: HO.LAB 11:42
PROVIDERS: PCP Internal Medicine; Visit Provider Internal Medicine
DX: Z00.00 Encounter for general adult medical examination without abnormal findings (principal); E78.00 Pure hypercholesterolemia, unspecified; D64.9 Anemia, unspecified; E11.9 Type 2 diabetes mellitus without complications; E55.9 Vitamin D deficiency, unspecified; R30.0 Dysuria
CPT/HCPCS: 36415; 80053; 80061; 81001; 82043; 82306; 82570; 84153; 84443; 84681; 85025; 86341

== ENCOUNTER 2024-05-26 12:16 | Outpatient (AMB) | payer OTHER, SELFPAY ==
[2024-05-26 12:39] VITALS: BP 118/52; PULSE 94; O2SAT 96; BMI 27.2
--- NOTE | 2024-05-26 12:39 | A.OFFPC_ITS ---
Vital Signs 05/26/24 12:39 Height 5 ft 7 in Weight 173 lb 6 oz BMI 27.2 BP 118/52 L Blood Pressure Location Lt brachial Position Sitting Pulse 94 Pulse Source Pulse Oximeter Pulse Oximetry (%) 96 Oxygen Delivery Method Room Air Intake Visit Reasons: uncontrolled DM-Needs A1C Allergies penicillin G Allergy (Unknown, Verified 05/26/24 13:13) hives Medication List - Last Reconciled 05/26/24 by Jony Hernandez MD albuterol sulfate 90 mcg/actuation (ProAir HFA) 2 puffs PO QID PRN 30 days blood sugar diagnostic (FreeStyle Lite Strips) 1 strip miscellaneous TID blood sugar diagnostic (FreeStyle Lite Strips) As directed - test 3 times a day before meals blood-glucose meter (FreeStyle Lite Meter kit) As directed - test 3 times a day before meals to dose Humalog buprenorphine-naloxone 8-2 mg 3 film sublingual Q OTHER DAY PRN cyclobenzaprine 10 mg PO TID PRN fenofibrate nanocrystallized 145 mg PO DAILY insulin aspart U-100 (Novolog FlexPen U-100 Insulin aspart) Inject up to 10 to 12 units 3 times a day with meals PER SLIDING SCALE subcut 3 times a day; 30 days insulin glargine (Lantus Solostar U-100 Insulin) 30 units (0.3 mL) subcut DAILY 30 days lancets As directed lancets (FreeStyle Lancets) As directed - test 3 times a day before meals lorazepam 0.5 mg PO BID PRN 30 days losartan 50 mg PO DAILY 90 days mometasone 100 mcg/actuation (Asmanex HFA) 1 puff inhalation BID pen needle, diabetic As directed quetiapine 200 mg PO BEDTIME Tobacco use date assessed: 12/23/23 Dental Screening Dental Screen Date: 12/23/23 HPI uncontrolled DM-Needs A1C HPI Details Patient comes in today for his follow up visit States that he currently feels okay He used to see Dr. Jimenez at [facility] for his diabetes but is now seeing a Dr. Oliva Gloria with [facility] He denies any headaches or dizziness Denies any chest pains, no SOB No nausea/vomiting, no abdominal pain No change in bowel habits noted He has not had any follow up labs done here since December 2023; is not sure if he had any labs done over at [facility] or [facility] that are more recent [facility] Medical History Broken femur Obesity (BMI 30-39.9) Thrombocytopenia Splenomegaly Overweight (BMI 25.0-29.9) Depression Anxiety Insomnia History of substance abuse Vitamin D deficiency History of hepatitis C Mixed hyperlipidemia Asthma Diabetes mellitus Surgical History No pertinent past surgical history Family History Father Liver failure Diabetes Hypertension CVD (cardiovascular disease) Mother Medical history unknown Social History Housing: Apartment Alcohol intake: never Patient Tobacco Use Status: Former Tobacco user e-Cigarette/Vaping Use: Never Used Second Hand Smoke Exposure: Yes service: No Current occupational status: disabled Cognitive needs: No Hearing needs: No Vision needs: Yes Questionnaire Thrive Questionnaire Date Thrive assessed: 12/23/23 SVITLANA-7 AMB Questionnaire SVITLANA-7 Date SVITLANA - 7 assessed: 12/23/23 Source: Developed by Drs. Freddie Chau, Maritza Wright, Stephen Wisdom and colleagues, with an educational mt from [employer]. Review of Systems Const Denies chills, Reports fatigue, Denies fever(s) and Denies headache(s) ENT Denies dysphagia, Denies dizziness, Denies otalgia, Denies headache(s), Denies neck pain, Denies odynophagia and Denies sore throat Card Denies chest pain, Denies palpitations and Denies dyspnea Resp Denies cough, Denies dyspnea and Denies wheezing GI Denies abdominal pain, Denies constipation, Denies dysphagia, Denies heartburn, Denies diarrhea, Denies nausea, Denies odynophagia and Denies vomiting Denies difficulty urinating, Denies dysuria, Reports nocturia and Reports urinary frequency Musc Denies back pain, Denies arthralgias and Denies neck pain Skin/Breast Denies rash Neuro Denies dizziness and Denies headache(s) Psych Reports anxiety Endo Reports fatigue and Denies palpitations Aller/Immun Denies wheezing Physical exam (Primary Care) Vital Signs: Last Vital Signs Pulse 94 05/26/24 12:39 BP 118/52 L 05/26/24 12:39 Pulse Ox 96 05/26/24 12:39 Oxygen Delivery Method Room Air 05/26/24 12:39 BMI result Body Mass Index 27.2 Tobacco/Smoking Status: Tobacco use Status Tobacco use date assessed 12/23/23 05/26/24 12:40 Patient Tobacco Use Status Former Tobacco user 05/26/24 12:40 e-Cigarette/Vaping Use Never Used 05/26/24 12:40 Thrive Assessment: Date of Thrive Assessment Date Thrive assessed 12/23/23 05/26/24 12:40 Const General: no acute distress and alert HENMT Ears: TM's normal bilaterally and EAC's normal Throat: Yes posterior oropharynx normal and Yes tonsils normal (no TP congestion noted) Neck Neck: Yes no lymphadenopathy and Yes supple Thyroid: Thyroid normal Resp Auscultation: clear to auscultation bilaterally, no rales and no wheezes Cardio Rate: regular rate Rhythm: regular rhythm Heart sounds: no murmurs GI Palpation (GI): Soft to palpation and nontender Auscultation: normal bowel sounds General: Yes no CVA tenderness Back/Spine/Pelvis Back: no CVA tenderness Skin Rashes: no rashes Extrem General: Yes no clubbing, cyanosis or edema Results AMB Hemoglobin A1c AMB Hemoglobin A1c 10.4 % Last Edit by GLORIA Dover on 05/26/24 13:00 Results Reviewed Results Reviewed: Laboratory Last Values Hgb A1c (Clinic) 10.4 % (4.0-6.0) H 05/26/24 12:45 Assessment and Plan Assessment & Plan (1) Uncontrolled diabetes mellitus with hyperglycemia: Code(s): E11.65 - Type 2 diabetes mellitus with hyperglycemia Qualifiers: Diabetes mellitus type: type 2 Qualified Code(s): E11.65 - Type 2 diabetes mellitus with hyperglycemia Plan: His in-office Hgb1c done today is at 10.4% (was at 11.4% when previously checked here in December 2023) - goal is at least <7.0% Reinforced diabetic diet Continue Lantus 30 units Q HS and Novolog 10 to 12 units TID with meals per sliding scale; he is also on Losartan 50 mg QD for renoprotection He was seeing Dr. Jimenez at [facility] in the past for endocrinology follow-up but is now seeing Dr. Devon Gloria with [facility] - to follow up with endocrinology as scheduled (2) Mixed hyperlipidemia: Code(s): E78.2 - Mixed hyperlipidemia Plan: Will recheck his labs and fasting lipids JOSE for follow up Reinforced low cholesterol diet Continue Fenofibrate 145 mg QD (3) Asthma: Code(s): J45.909 - Unspecified asthma, uncomplicated Qualifiers: Asthma severity: moderate Asthma persistence: persistent Asthma com plication type: uncomplicated Qualified Code(s): J45.40 - Moderate persistent asthma, uncomplicated Plan: Stable Continue Flovent HFA 110 mcg 1 inhalation BID and ProAir HFA 2 inhalations every 6 hours as needed (4) Vitamin D deficiency: Code(s): E55.9 - Vitamin D deficiency, unspecified Plan: Continue Vitamin D2 75805 units once a week (5) Splenomegaly: Code(s): R16.1 - Splenomegaly, not elsewhere classified Plan: Asymptomatic - this was seen/confirmed on imaging a few years ago As he is currently asymptomatic, will continue to monitor this regularly for now (6) Thrombocytopenia: Code(s): D69.6 - Thrombocytopenia, unspecified Plan: Stable - is mostly due to his splenomegaly Was seen and evaluated previously by hematology - as patient is asymptomatic and his thrombocytopenia is stable with no acute bleeding issues, will need to follow up with them only as needed Will continue to monitor platelet count and CBC regularly (7) History of hepatitis C: Code(s): Z86.19 - Personal history of other infectious and parasitic diseases Plan: S/P Tx - Hepatitis C viral load was negligible when last checked Follow up with [facility] as scheduled for continuing follow up and surveillance (8) History of substance abuse: Code(s): F19.11 - Other psychoactive substance abuse, in remission Plan: Continue Suboxone 8-2 mg 3 films SL QD Follow up with [facility] as scheduled (9) Insomnia: Code(s): G47.00 - Insomnia, unspecified Qualifiers: Insomnia type: unspecified Qualified Code(s): G47.00 - Insomnia, unspecified Plan: Sleep hygiene reinforced Seroquel at bedtime helps with his sleep (10) Anxiety: Code(s): F41.9 - Anxiety disorder, unspecified Plan: Continue Clonidine 0.1 mg TID PRN (11) Depression: Code(s): F32.9 - Major depressive disorder, single episode, unspecified Qualifiers: Depression Type: major depressive disorder Major depression recurrence: recurrent Active/Remission status: currently active Major depression episode severity: unspecified Qualified Code(s): F33.9 - Major depressive disorder, recurrent, unspecified Plan: Continue Quetiapine 200 mg Q HS Follow up with psychiatry as scheduled (12) Overweight (BMI 25.0-29.9): Code(s): E66.3 - Overweight Plan: Reinforced diet/exercise as tolerated/lose weight Plan Follow up in 3 months Orders: Orders AMB Hemoglobin A1c 05/26/24 E11.65 - Type 2 diabetes mellitus with hyperglycemia, Z79.4 - intermediate school teacher (current) use of insulin Lipid Panel 05/26/24 E78.00 - Pure hypercholesterolemia, unspecified TSH reflex Free T4 05/26/24 E78.00 - Pure hypercholesterolemia, unspecified Microalbumin, Random (w Creat) 05/26/24 E11.9 - Type 2 diabetes mellitus without complications Vitamin D 25-OH Total 05/26/24 E55.9 - Vitamin D deficiency, unspecified ECG 12 lead EKG 05/26/24 E11.65 - Type 2 diabetes mellitus with hyperglycemia, I49.49 - Other premature depolarization, Z79.4 - intermediate school teacher (current) use of insulin CA echo transthoracic complete 05/26/24 E11.65 - Type 2 diabetes mellitus with hyperglycemia, R01.1 - Cardiac murmur, unspecified, Z79.4 - halfway (current) use of insulin Complete Blood Count Auto Diff 05/26/24 D64.9 - Anemia, unspecified Comprehensive [place]. Panel Fast 05/26/24 E78.00 - Pure hypercholesterolemia, unspecified UA CC w/rflx Micro + Cult 05/26/24 R30.0 - Dysuria Vitamin B12 and Folate 05/26/24 E53.8 - Deficiency of other specified B group vitamins Coding Level of Care Code Est Pt Level 4 (26662) Complex EM visit Add On G2211 Diagnoses Uncontrolled type 2 diabetes mellitus with hyperglycemia E11.65 Diabetes mellitus type: type 2 Mixed hyperlipidemia E78.2 Moderate persistent asthma without complication J45.40 Asthma severity: moderate Asthma persistence: persistent Asthma complication type: uncomplicated Vitamin D deficiency E55.9 Splenomegaly R16.1 Thrombocytopenia D69.6 History of hepatitis C Z86.19 History of substance abuse F19.11 Insomnia, unspecified type G47.00 Insomnia type: unspecified Anxiety F41.9 Episode of recurrent major depressive disorder, unspecified depression episode severity F33.9 Depression Type: major depressive disorder Major depression recurrence: recurrent Active/Remission status: currently active Major depression episode severity: unspecified Overweight (BMI 25.0-29.9) E66.3
== END 2024-05-26 13:21 | disposition home or self-care (01) ==
PROVIDERS: PCP Internal Medicine; Visit Provider Internal Medicine
DX: E11.65 Type 2 diabetes mellitus with hyperglycemia (principal); D69.6 Thrombocytopenia, unspecified; F19.11 Other psychoactive substance abuse, in remission; Z79.4 Long term (current) use of insulin; F33.9 Major depressive disorder, recurrent, unspecified; E78.2 Mixed hyperlipidemia; J45.40 Moderate persistent asthma, uncomplicated; E55.9 Vitamin D deficiency, unspecified; R16.1 Splenomegaly, not elsewhere classified; Z86.19 Personal history of other infectious and parasitic diseases; G47.00 Insomnia, unspecified; F41.9 Anxiety disorder, unspecified
CPT/HCPCS: 83036; 99214; G2211

== ENCOUNTER → 2024-07-12 14:21 | Outpatient (REF) | payer OTHER, SELFPAY ==
--- NOTE | 2024-07-12 14:38 | CA_ITS ---
Transthoracic Echocardiogram Patient (Last, First, Middle): Carlos Astorga W Gender: Male Date of : 1970 Age: 53 Procedure Date: 07/12/2024 Procedure Type: Transthoracic Echocardiogram Location: OP Height: 170.18 cm Weight: 86.18 kg BSA: 1.98 m2 Heart Rate: 86 bpm BP: 118 / 52 mmHg Senior Reservations Agent: SB Referring MD: Jony Hernandez MD Mold Unloader: Duke Choudhary MD Symptoms: E11.65 - Type 2 diabetes mellitus with hyperglycemia Study Quality: Adequate ECG Rhythm: Sinus Conclusions: - Essentially normal study Findings Left Ventricle Normal left ventricular size, thickness, and systolic function. The visually estimated ejection fraction is between 60-65%. Diastolic function is normal for age. Right Ventricle Normal right ventricular cavity size and systolic function. Atria Both atria are normal in size. There is no evidence of interatrial shunt. Aortic Valve Normal aortic valve structure and function. There is no aortic valve stenosis. There is no aortic valve regurgitation. Mitral Valve Normal mitral valve structure and function. There is trace mitral valve regurgitation. There is no mitral valve stenosis. Pulmonic Valve The pulmonic valve is likely normal. Tricuspid Valve Normal tricuspid valve structure. There is trace tricuspid valve regurgitation. The right ventricular systolic pressure is normal. The right ventricular systolic pressure is 31 mmHg. Normal right atrial pressure. There is no evidence of pulmonary hypertension. Great Vessels All visible segments of the aorta are normal in size. The pulmonary artery was not well visualized. Venous The inferior vena cava is normal in size and collapses greater than 50% with inspiration. Pericardium/Pleural There is no evidence of pericardial effusion. Prior Study Comparison No prior study available for comparison. Measurements 2D Linear Measurements IVSd: 0.65 0.6-0.9/0.6-1.0 cm LVIDd: 6.23 3.9-5.3/4.2-5.9 cm LVIDd Index: 3.15 2.4-3.2/2.2-3.1 cm/m2 LVIDs: 3.86 2.0-3.6 cm LVPWd: 0.71 0.7-1.1 cm LA Diam: 4.20 2.7-3.8/3.0-4.0 cm LAIDs Index: 2.12 1.5-2.3 cm/m2 LV Mass: 203.08 67-162/88-224 g LV Mass Index: 102.57 43-95/49-115 g/m2 LVOT Diam: 2.20 3.0+(-)1.3 cm 2D Systolic Function EF 4C: 66.00 >55% EF 2C: 63.60 >55% EF BiP: 64.80 >55% Mitral Valve MV Pk E: 1.08 MV PK A: 0.61 MV Decel Time: 235.00 E/A: 1.80 E'Lateral: 11.10 E'Medial: 9.57 E/E' Med: 11.30 E/E' Lat: 9.70 PHT: 69.00 MVA PHT: 3.19 Decel [place]: 4.61 Aortic Valve AoV Pk Juan Alberto: 1.49 AoV Pk Grad: 9.00 NIK: 3.62 LVOT LVOT Pk Juan Alberto: 1.43 LVOT Mn Jaun Alberto: 0.88 LVOT VTI: 0.25 LVOT Pk Grad: 8.00 LVOT Mn Grad: 4.00 LVOT Diam: 2.20 LVOT Area: 3.80 Diastolic Function MV Pk E: 1.08 MV Pk A: 0.61 E/A: 1.80 E'Medial: 9.57 E/E' Med: 11.30 E' Laterial: 11.10 E/E' Lat: 9.70 Right Ventricle TAPSE (mm): 30.00 TVS' Juan Alberto: 17.20 Tricuspid Valve TR Pk Juan Alberto: 2.66 TR Pk Grad: 28.00 RA Press: 3.00 RVSP: 31.00 Great Vessels Aorta Sinus of Valsalva: 3.10 2.0-3.5 cm Ao Asc: 2.90 2.1-3.4 cm Ao Arch: 2.70 Pulmonary Veins Pulm Vein S/D 1.10 Pulmonary Valve PV Pk Juan Alberto: 1.17 Peak PV Grad: 5.00 Updated in Other Vendor System with Status of Final Duke Choudhary MD electronically signed on 07/12/2024 4:13:13 PM with status of Final
--- NOTE | 2024-07-12 14:38 | ECG_ITS ---
Test Reason : DM, CARDIAC MURMUR Blood Pressure : / mmHG Vent. Rate : 090 BPM Atrial Rate : 090 BPM P-R Int : 142 ms QRS Dur : 094 ms QT Int : 398 ms P-R-T Axes : 062 019 007 degrees QTc Int : 486 ms Normal sinus rhythm Prolonged QT Abnormal ECG When compared with ECG of 07-FEB-2003 12:33, QT has lengthened Referred By: Jony Hernandez Electronically Signed By:JESSE TERRELL
== END ==
LOC: HO.CARD 14:21
PROVIDERS: PCP Internal Medicine; Visit Provider Internal Medicine
DX: R01.1 Cardiac murmur, unspecified (principal); I49.49 Other premature depolarization; E11.65 Type 2 diabetes mellitus with hyperglycemia; Z79.4 Long term (current) use of insulin
CPT/HCPCS: 93005; 93306

== ENCOUNTER → 2024-07-12 14:38 | Outpatient (BNV) | payer OTHER, SELFPAY | PROVIDERS: PCP Internal Medicine; Visit Provider Internal Medicine Cardiovascular Disease | DX: I34.0 Nonrheumatic mitral (valve) insufficiency (principal) | CPT/HCPCS: 93306 ==

== ENCOUNTER 2024-09-15 12:30 | Outpatient (AMB) | payer OTHER, SELFPAY ==
[2024-09-15 12:33] VITALS: BP 122/80; PULSE 96; O2SAT 96; BMI 28.1
--- NOTE | 2024-09-15 12:33 | A.OFFPC_ITS ---
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 Accompanied by: Self / Same As Patient Allergies penicillin G Allergy (Unknown, Verified 09/15/24 12:59) hives Medication List - Last Reconciled 09/15/24 by Jony Hernandez MD albuterol sulfate 90 mcg/actuation (ProAir HFA) 2 puffs PO QID PRN 30 days blood sugar diagnostic (FreeStyle Lite Strips) 1 strip miscellaneous TID blood sugar diagnostic (FreeStyle Lite Strips) As directed - test 3 times a day before meals blood-glucose meter (FreeStyle Lite Meter kit) As directed - test 3 times a day before meals to dose Humalog buprenorphine-naloxone 8-2 mg 3 film sublingual Q OTHER DAY PRN cyclobenzaprine 10 mg PO TID PRN fenofibrate nanocrystallized 145 mg PO DAILY insulin aspart U-100 (Novolog FlexPen U-100 Insulin aspart) Inject up to 10 to 12 units 3 times a day with meals PER SLIDING SCALE subcut 3 times a day; 30 days insulin glargine 50 units subcut QPM lancets As directed lancets (FreeStyle Lancets) As directed - test 3 times a day before meals lorazepam 0.5 mg PO BID PRN 30 days losartan 50 mg PO DAILY 90 days mometasone 100 mcg/actuation (Asmanex HFA) 1 puff inhalation BID pen needle, diabetic As directed quetiapine 200 mg PO BEDTIME Tobacco use date assessed: 09/15/24 Dental Screening Dental Screen Date: 09/15/24 Did you have a dental visit in the last 12 months?: No Did you have a dental problem in the last 6 months where you did not have access to dental care?: No Was dental information given to patient?: No HPI 3mo f/u repeat A1C (elevated 10.4) HPI Details Patient comes in today for his follow up visit States that he feels okay He denies any headaches or dizziness Denies any chest pains, no increased shortness of breath No nausea/vomiting, no abdominal pain No change in bowel habits noted Patient again was not able to get his follow-up labs done prior to his visit today although he states that he is currently seeing a Dr. Latosha Abbasi for his diabetes and feels that he had some labs done recently [facility] Medical History Essential hypertension Broken femur Obesity (BMI 30-39.9) Thrombocytopenia Splenomegaly Overweight (BMI 25.0-29.9) Depression Anxiety Insomnia History of substance abuse Vitamin D deficiency History of hepatitis C Mixed hyperlipidemia Asthma Diabetes mellitus Surgical History No pertinent past surgical history Family History Father Liver failure Diabetes Hypertension CVD (cardiovascular disease) Mother Medical history unknown Social History Housing: Apartment Alcohol intake: never Patient Tobacco Use Status: Former Tobacco user e-Cigarette/Vaping Use: Never Used Second Hand Smoke Exposure: Yes service: No Current occupational status: disabled Cognitive needs: No Hearing needs: No Vision needs: Yes Questionnaire PHQ-9 Over the last 2 weeks, how often have you been bothered by any of the following problems? 1. Little interest or pleasure in doing things: several days 2. Feeling down, depressed, or hopeless: several days 3. Trouble falling or staying asleep, or sleeping too much: several days 4. Feeling tired or having little energy: several days 5. Poor appetite or overeating: several days 6. Feeling bad about yourself - or that you are a failure or have let yourself or your family down: not at all 7. Trouble concentrating on things, such as reading the newspaper or watching television: not at all 8. Moving or speaking so slowly that other people could have noticed. Or the opposite - being so fidgety or restless that you have been moving around a lot more than usual: not at all 9. Thoughts that you would be better off or of hurting yourself in some way: not at all Total score: 5 Depression Screening Interpretation: Positive Depression Screening Follow-up: Existing condition and In treatment Depression Screening Done: Yes 07747 - PHQ-9 Billing: Yes Source: Developed by Drs. Freddie Chau, Maritza Wright, Stephen Wisdom and colleagues, with an educational mt from [employer]. Thrive Questionnaire Date Thrive assessed: 09/15/24 I am a: Patient What is your living situation today?: I have a steady place to live Within the past 12 months, did the food you bought not last and you didn't have the money to get more?: Never true Within the past 12 months, did you worry whether your food would run out before you got money to buy more?: Never true Do you have trouble paying for medicines?: No Do you have trouble getting transportation to medical appointments?: No Do you have trouble paying your heating and electricity bill?: No Do you have trouble taking care of your child, family member or friend?: No Do you have trouble with day-to-day activities such as bathing, preparing meals, shopping, managing finances, etc.?: No Are you currently unemployed and looking for a job?: No Are you interested in more education?: No Please select the resources that you would like help with: None Currently or been in a relationship where the following occur: No concerns reported THRIVE Score: 0 AUDIT C Alcohol Use Questionnaire (AUDIT-C) 1. How often do you have a drink containing alcohol?: Never 3. How often do you have six or more drinks on one occasion?: Never Total Score: 0 Score Reviewed/Action Taken: Yes SVITLANA-7 AMB Questionnaire SVITLANA-7 Date SVITLANA - 7 assessed: 09/15/24 Feeling nervous, anxious, or on edge: 0 = Not at all Not being able to stop or control worryin = Not at all Worrying too much about different things: 0 = Not at all Trouble relaxin = Not at all Being so restless that it is hard to sit still: 0 = Not at all Becoming easily annoyed or irritable: 0 = Not at all Feeling afraid as if something awful might happen: 0 = Not at all Total SVITLANA-7 score (0-4 normal; 5-9 mild; 10-14 moderate; 15-21 severe): 0 Source: Developed by Maritza Gary Kurt Kroenke and colleagues, with an educational mt from [employer]. Review of Systems Const Denies chills, Reports fatigue, Denies fever(s) and Denies headache(s) ENT Denies dysphagia, Denies dizziness, Denies otalgia, Denies headache(s), Denies neck pain, Denies odynophagia and Denies sore throat Card Denies chest pain, Denies palpitations and Denies dyspnea Resp Denies cough, Denies dyspnea and Denies wheezing GI Denies abdominal pain, Denies constipation, Denies dysphagia, Denies heartburn, Denies diarrhea, Denies nausea, Denies odynophagia and Denies vomiting Denies difficulty urinating, Denies dysuria, Reports nocturia and Reports urinary frequency Musc Denies back pain, Denies arthralgias and Denies neck pain Skin/Breast Denies rash Neuro Denies dizziness and Denies headache(s) Psych Reports anxiety Endo Reports fatigue and Denies palpitations Aller/Immun Denies wheezing Physical exam (Primary Care) Vital Signs: Last Vital Signs Pulse 96 09/15/24 12:33 BP 122/80 09/15/24 12:33 Pulse Ox 96 09/15/24 12:33 Oxygen Delivery Method Room Air 09/15/24 12:33 BMI result Body Mass Index 28.1 Tobacco/Smoking Status: Tobacco use Status Tobacco use date assessed 09/15/24 09/15/24 12:34 Patient Tobacco Use Status Former Tobacco user 09/15/24 12:34 e-Cigarette/Vaping Use Never Used 09/15/24 12:34 PHQ-9: PHQ-9 Score PHQ-9: Total score 5 09/15/24 13:01 Depression Screening Interpretation: Positive Depression Screening Follow-up: Existing condition and In treatment Thrive Assessment: Date of Thrive Assessment Date Thrive assessed 09/15/24 09/15/24 12:43 Currently or been in a relationship where the following occur: No concerns reported Const General: no acute distress and alert HENMT Ears: TM's normal bilaterally and EAC's normal Throat: Yes posterior oropharynx normal and Yes tonsils normal (no TP congestion noted) Neck Neck: Yes no lymphadenopathy and Yes supple Thyroid: Thyroid normal Resp Auscultation: clear to auscultation bilaterally, no rales and no wheezes Cardio Rate: regular rate Rhythm: regular rhythm Heart sounds: no murmurs GI Palpation (GI): Soft to palpation and nontender Auscultation: normal bowel sounds General: Yes no CVA tenderness Back/Spine/Pelvis Back: no CVA tenderness Skin Rashes: no rashes Extrem General: Yes no clubbing, cyanosis or edema Results AMB Hemoglobin A1c AMB Hemoglobin A1c 10.3 % Last Edit by CHARBEL Sheridan on 09/15/24 12:57 Results Reviewed Results Reviewed: Laboratory Last Values Hgb A1c (Clinic) 10.3 % (4.0-6.0) H 09/15/24 12:56 Coding Level of Care Code Est Pt Level 4 (98773) Diagnoses Uncontrolled type 2 diabetes mellitus with hyperglycemia E11.65 Diabetes mellitus type: type 2 Mixed hyperlipidemia E78.2 Essential hypertension I10 Moderate persistent asthma without complication J45.40 Asthma severity: moderate Asthma persistence: persistent Asthma complication type: uncomplicated Vitamin D deficiency E55.9 Splenomegaly R16.1 Thrombocytopenia D69.6 History of hepatitis C Z86.19 History of substance abuse F19.11 Insomnia, unspecified type G47.00 Insomnia type: unspecified Anxiety F41.9 Episode of recurrent major depressive disorder, unspecified depression episode severity F33.9 Depression Type: major depressive disorder Major depression recurrence: recurrent Active/Remission status: currently active Major depression episode severity: unspecified Overweight (BMI 25.0-29.9) E66.3 Additional Codes PHQ-9 - 68470 - PHQ-9 Billing: Yes ([id number]) Assessment & Plan Assessment & Plan (1) Uncontrolled diabetes mellitus with hyperglycemia: Code(s): E11.65 - Type 2 diabetes mellitus with hyperglycemia Category: Medical Qualifiers: Diabetes mellitus type: type 2 Qualified Code(s): E11.65 - Type 2 diabetes mellitus with hyperglycemia Plan: His in-office HgbA1c today is still at 10.3% (was at 10.4% a few months ago) - goal is at least <7.0% Reinforced diabetic diet Continue Lantus 50 units Q HS and Novolog 10 to 12 units TID with meals per sliding scale; he is also on Losartan 50 mg QD for renoprotection He was seeing Dr. Jimenez at [facility] in the past but is now seeing Dr. Devon Gloria and more recently, Dr. Latosha Astorga with [facility] for follow up and management of his diabetes (2) Mixed hyperlipidemia: Code(s): E78.2 - Mixed hyperlipidemia Category: Medical Plan: We currently do not have any recent follow-up labs from patient to review Will have patient recheck his labs and fasting lipids JOSE for follow up as we have no labs from him on file since December 2023 Reinforced low cholesterol diet Continue Fenofibrate 145 mg QD Will have patient recheck his labs and fasting lipids again in 3 months for follow up (3) Essential hypertension: Code(s): I10 - Essential (primary) hypertension Category: Medical Plan: Reinforced low-sodium diet - goal is systolic BP of 120 mm or less Continue Losartan 50 mg QD (4) Asthma: Code(s): J45.909 - Unspecified asthma, uncomplicated Category: Medical Qualifiers: Asthma severity: moderate Asthma persistence: persistent Asthma complication type: uncomplicated Qualified Code(s): J45.40 - Moderate persistent asthma, uncomplicated Plan: Stable Continue Flovent HFA 110 mcg 1 inhalation BID and ProAir HFA 2 inhalations every 6 hours as needed (5) Vitamin D deficiency: Code(s): E55.9 - Vitamin D deficiency, unspecified Category: Medical Plan: Continue Vitamin D2 62262 units once a week (6) Splenomegaly: Code(s): R16.1 - Splenomegaly, not elsewhere classified Category: Medical Plan: Asymptomatic - this was seen/confirmed on imaging a few years ago As he is currently asymptomatic, will continue to monitor this regularly for now (7) Thrombocytopenia: Code(s): D69.6 - Thrombocytopenia, unspecified Category: Medical Plan: Stable - is most likely related to his splenomegaly He was seen and evaluated previously by hematology - as patient is asymptomatic and his thrombocytopenia is stable with no acute bleeding issues, he was advised that will just need to follow up with them only on an as-needed basis Will continue to monitor his platelet count and CBC regularly (8) History of hepatitis C: Code(s): Z86.19 - Personal history of other infectious and parasitic diseases Category: Medical Plan: S/P Tx - Hepatitis C viral load was negligible when last checked Follow up with [facility] as scheduled for continuing follow up and surveillance (9) History of substance abuse: Code(s): F19.11 - Other psychoactive substance abuse, in remission Category: Medical Plan: Continue Suboxone 8-2 mg 3 films SL QOD PRN Follow up with [facility] as scheduled (10) Insomnia: Code(s): G47.00 - Insomnia, unspecified Category: Medical Qualifiers: Insomnia type: unspecified Qualified Code(s): G47.00 - Insomnia, unspecified Plan: Sleep hygiene reinforced Seroquel at bedtime helps with his sleep (11) Anxiety: Code(s): F41.9 - Anxiety disorder, unspecified Category: Medical Plan: Continue Clonidine 0.1 mg TID PRN (12) Depression: Code(s): F32.9 - Major depressive disorder, single episode, unspecified Category: Medical Qualifiers: Depression Type: major depressive disorder Major depression recurrence: recurrent Active/Remission status: currently active Major depression episode severity: unspecified Qualified Code(s): F33.9 - Major depressive disorder, recurrent, unspecified Plan: Continue Quetiapine 200 mg Q HS Follow up with psychiatry as scheduled (13) Overweight (BMI 25.0-29.9): Code(s): E66.3 - Overweight Category: Medical Plan: Reinforced diet/exercise as tolerated/lose weight Plan Follow up in 3 months Orders: Orders AMB Hemoglobin A1c 24 Z13.9 - Encounter for screening, unspecified Comprehensive [place]. Panel Fast 3 Months E78.00 - Pure hypercholesterolemia, unspecified Lipid Panel 3 Months E78.00 - Pure hypercholesterolemia, unspecified Microalbumin, Random (w Creat) 3 Months E11.9 - Type 2 diabetes mellitus without complications UA CC w/rflx Micro + Cult 3 Months R30.0 - Dysuria Hemoglobin A1c 09/15/24 E11.9 - Type 2 diabetes mellitus without complications Complete Blood Count Auto Diff 3 Months D64.9 - Anemia, unspecified Hemoglobin A1c 3 Months E11.9 - Type 2 diabetes mellitus without complications
== END 2024-09-15 13:11 | disposition home or self-care (01) ==
PROVIDERS: PCP Internal Medicine; Visit Provider Internal Medicine
DX: E11.65 Type 2 diabetes mellitus with hyperglycemia (principal); D69.6 Thrombocytopenia, unspecified; F19.11 Other psychoactive substance abuse, in remission; F33.9 Major depressive disorder, recurrent, unspecified; E78.2 Mixed hyperlipidemia; I10 Essential (primary) hypertension; J45.40 Moderate persistent asthma, uncomplicated; E55.9 Vitamin D deficiency, unspecified; R16.1 Splenomegaly, not elsewhere classified; Z86.19 Personal history of other infectious and parasitic diseases; G47.00 Insomnia, unspecified; F41.9 Anxiety disorder, unspecified

== ENCOUNTER → 2024-09-15 12:30 | Outpatient (BNVA) | payer OTHER, SELFPAY | PROVIDERS: PCP Internal Medicine; Visit Provider Internal Medicine | DX: E11.65 Type 2 diabetes mellitus with hyperglycemia (principal); E78.2 Mixed hyperlipidemia; I10 Essential (primary) hypertension; J45.40 Moderate persistent asthma, uncomplicated; E55.9 Vitamin D deficiency, unspecified; R16.1 Splenomegaly, not elsewhere classified; D69.6 Thrombocytopenia, unspecified; F19.11 Other psychoactive substance abuse, in remission; G47.00 Insomnia, unspecified; F41.9 Anxiety disorder, unspecified; F33.9 Major depressive disorder, recurrent, unspecified | CPT/HCPCS: 83036; 96127; 99212 ==

== ENCOUNTER 2024-12-26 14:44 | Outpatient (AMB) | payer OTHER, SELFPAY ==
[2024-12-26 14:56] VITALS: BP 154/78; PULSE 86; O2SAT 99; BMI 29.4
--- NOTE | 2024-12-26 14:56 | MHC.PC.OV ---
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 Accompanied by: Self / Same As Patient Allergies penicillin G Allergy (Unknown, Verified 12/26/24 15:34) hives Medication List - Last Reconciled 12/26/24 by Jony Hernandez MD blood sugar diagnostic (FreeStyle Lite Strips) 1 strip miscellaneous TID blood sugar diagnostic (FreeStyle Lite Strips) As directed - test 3 times a day before meals blood-glucose meter (FreeStyle Lite Meter kit) As directed - test 3 times a day before meals to dose Humalog buprenorphine-naloxone 8-2 mg 2 film sublingual Q24H PRN insulin glargine 50 units subcut QPM lancets As directed lancets (FreeStyle Lancets) As directed - test 3 times a day before meals pen needle, diabetic As directed quetiapine 200 mg PO BEDTIME Tobacco use date assessed: 12/26/24 Dental Screening Dental Screen Date: 12/26/24 Did you have a dental visit in the last 12 months?: Yes Did you have a dental problem in the last 6 months where you did not have access to dental care?: No Was dental information given to patient?: Patient has dentist [facility] Medical History Essential hypertension Broken femur Obesity (BMI 30-39.9) Thrombocytopenia Splenomegaly Overweight (BMI 25.0-29.9) Depression Anxiety Insomnia History of substance abuse Vitamin D deficiency History of hepatitis C Mixed hyperlipidemia Asthma Diabetes mellitus Surgical History No pertinent past surgical history Family History Father Liver failure Diabetes Hypertension CVD (cardiovascular disease) Mother Medical history unknown Social History Housing: Apartment Alcohol intake: never Patient Tobacco Use Status: Former Tobacco user e-Cigarette/Vaping Use: Never Used Second Hand Smoke Exposure: Yes service: No Current occupational status: disabled Cognitive needs: No Hearing needs: No Vision needs: Yes Questionnaire PHQ-9 Over the last 2 weeks, how often have you been bothered by any of the following problems? 1. Little interest or pleasure in doing things: several days 2. Feeling down, depressed, or hopeless: several days 3. Trouble falling or staying asleep, or sleeping too much: several days 4. Feeling tired or having little energy: several days 5. Poor appetite or overeating: several days 6. Feeling bad about yourself - or that you are a failure or have let yourself or your family down: not at all 7. Trouble concentrating on things, such as reading the newspaper or watching television: not at all 8. Moving or speaking so slowly that other people could have noticed. Or the opposite - being so fidgety or restless that you have been moving around a lot more than usual: not at all 9. Thoughts that you would be better off or of hurting yourself in some way: not at all Total score: 5 Depression Screening Interpretation: Positive Depression Screening Follow-up: Existing condition and In treatment Depression Screening Done: Yes 76850 - PHQ-9 Billing: Yes Source: Developed by Drs. Freddie Chau, Maritza Wright, Stephen Wisdom and colleagues, with an educational mt from [employer]. Thrive Questionnaire Date Thrive assessed: 12/26/24 I am a: Patient What is your living situation today?: I have a steady place to live Within the past 12 months, did the food you bought not last and you didn't have the money to get more?: Never true Within the past 12 months, did you worry whether your food would run out before you got money to buy more?: Never true Do you have trouble paying for medicines?: No Do you have trouble getting transportation to medical appointments?: No Do you have trouble paying your heating and electricity bill?: No Do you have trouble taking care of your child, family member or friend?: No Do you have trouble with day-to-day activities such as bathing, preparing meals, shopping, managing finances, etc.?: No Are you currently unemployed and looking for a job?: No Are you interested in more education?: No Please select the resources that you would like help with: None Currently or been in a relationship where the following occur: No concerns reported THRIVE Score: 0 AUDIT C Alcohol Use Questionnaire (AUDIT-C) 1. How often do you have a drink containing alcohol?: Never 3. How often do you have six or more drinks on one occasion?: Never Total Score: 0 Score Reviewed/Action Taken: Yes SVITLANA-7 AMB Questionnaire SVITLANA-7 Date SVITLANA - 7 assessed: 12/26/24 Feeling nervous, anxious, or on edge: 0 = Not at all Not being able to stop or control worryin = Not at all Worrying too much about different things: 0 = Not at all Trouble relaxin = Not at all Being so restless that it is hard to sit still: 0 = Not at all Becoming easily annoyed or irritable: 0 = Not at all Feeling afraid as if something awful might happen: 0 = Not at all Total SVITLANA-7 score (0-4 normal; 5-9 mild; 10-14 moderate; 15-21 severe): 0 Source: Developed by Drs. Freddie Chau, Maritza Wright, Stephen Wisdom and colleagues, with an educational mt from [employer]. Physical exam (Primary Care) Vital Signs: Last Vital Signs Pulse 86 12/26/24 14:56 BP 154/78 H 12/26/24 14:56 Pulse Ox 99 12/26/24 14:56 Oxygen Delivery Method Room Air 12/26/24 14:56 BMI result Body Mass Index 29.4 Tobacco/Smoking Status: Tobacco use Status Tobacco use date assessed 12/26/24 12/26/24 15:03 Patient Tobacco Use Status Former Tobacco user 12/26/24 15:03 e-Cigarette/Vaping Use Never Used 12/26/24 15:03 PHQ-9: PHQ-9 Score PHQ-9: Total score 5 12/26/24 15:17 Depression Screening Interpretation: Positive Depression Screening Follow-up: Existing condition and In treatment Thrive Assessment: Date of Thrive Assessment Date Thrive assessed 12/26/24 12/26/24 15:03 Currently or been in a relationship where the following occur: No concerns reported Results AMB Hemoglobin A1c AMB Hemoglobin A1c 9.5 % Last Edit by CHARBEL Sheridan on 12/26/24 15:17 Results Reviewed Results Reviewed: Laboratory Last Values Hgb A1c (Clinic) 9.5 % (4.0-6.0) H 12/26/24 15:15 Coding Additional Codes PHQ-9 - 44671 - PHQ-9 Billing: Yes ([id number]) Assessment & Plan Assessment & Plan Orders: Orders AMB Hemoglobin A1c Today Z13.9 - Encounter for screening, unspecified Complete Blood Count Auto Diff Today D64.9 - Anemia, unspecified Complete Blood Count Auto Diff 3 Months D64.9 - Anemia, unspecified Comprehensive [place]. Panel Fast 3 Months E78.00 - Pure hypercholesterolemia, unspecified Lipid Panel 3 Months E78.00 - Pure hypercholesterolemia, unspecified Hemoglobin A1c 3 Months E11.9 - Type 2 diabetes mellitus without complications Vitamin D 25-OH Total 3 Months E55.9 - Vitamin D deficiency, unspecified Vitamin B12 and Folate 3 Months E53.8 - Deficiency of other specified B group vitamins Comprehensive [place]. Panel Fast Today E78.00 - Pure hypercholesterolemia, unspecified Lipid Panel Today E78.00 - Pure hypercholesterolemia, unspecified TSH reflex Free T4 Today E78.00 - Pure hypercholesterolemia, unspecified Microalbumin, Random (w Creat) Today E11.9 - Type 2 diabetes mellitus without complications UA CC w/rflx Micro + Cult Today R30.0 - Dysuria Vitamin D 25-OH Total Today E55.9 - Vitamin D deficiency, unspecified Microalbumin, Random (w Creat) 3 Months E11.9 - Type 2 diabetes mellitus without complications TSH reflex Free T4 3 Months E78.00 - Pure hypercholesterolemia, unspecified UA CC w/rflx Micro + Cult 3 Months R30.0 - Dysuria Referrals Wound Care Referral E11.65 - Type 2 diabetes mellitus with hyperglycemia, S81.801A - Unspecified open wound, right lower leg, initial encounter Medications: New insulin glargine 50 units (0.5 mL) subcut QPM 15 mL 5RF atorvastatin 10 mg PO BEDTIME 90 days 90 tabs 1RF doxycycline hyclate 100 mg PO BID 7 days 14 caps 0RF Changed From albuterol sulfate 90 mcg/actuation (ProAir HFA) 2 puffs PO QID 30 days PRN 8.5 grams 5RF shortness of breath or wheezing J45.909 - Unspecified asthma, uncomplicated To albuterol sulfate 90 mcg/actuation (Ventolin HFA) 2 puffs PO QID 30 days PRN 8.5 grams 5RF shortness of breath or wheezing J45.909 - Unspecified asthma, uncomplicated Refilled insulin aspart U-100 (Novolog FlexPen U-100 Insulin aspart) Inject up to 10 to 12 units 3 times a day with meals PER SLIDING SCALE subcut 3 times a day; 30 days 15 mL 5RF E11.9 - Type 2 diabetes mellitus without complications losartan 50 mg PO DAILY 90 days 90 tabs 1RF lorazepam 0.5 mg PO BID 30 days PRN 30 tabs 0RF anxiety
== END 2024-12-26 15:51 | disposition home or self-care (01) ==
LOC: HO.HMCH 14:44
PROVIDERS: PCP Internal Medicine; Visit Provider Internal Medicine
DX: Z13.9 Encounter for screening, unspecified (principal)

== ENCOUNTER → 2024-12-26 14:44 | Outpatient (BNVA) | payer OTHER, SELFPAY | PROVIDERS: PCP Internal Medicine; Visit Provider Internal Medicine | DX: E11.65 Type 2 diabetes mellitus with hyperglycemia (principal); E78.2 Mixed hyperlipidemia; I10 Essential (primary) hypertension; J45.40 Moderate persistent asthma, uncomplicated; S81.801D Unspecified open wound, right lower leg, subsequent encounter; E55.9 Vitamin D deficiency, unspecified; R16.1 Splenomegaly, not elsewhere classified; D69.6 Thrombocytopenia, unspecified; F19.11 Other psychoactive substance abuse, in remission; G47.00 Insomnia, unspecified; F41.9 Anxiety disorder, unspecified; F33.9 Major depressive disorder, recurrent, unspecified; E66.3 Overweight; Z68.29 Body mass index [BMI] 29.0-29.9, adult; Z71.3 Dietary counseling and surveillance; Z86.19 Personal history of other infectious and parasitic diseases | CPT/HCPCS: 83036; 96127; 99212 ==

== ENCOUNTER 2024-12-27 11:57 | Outpatient (REF) | payer OTHER, SELFPAY ==
[2024-12-27 12:37] LABS: Basophils Percent Auto 0.8 % (0-2); Eosinophils Percent Auto 3.1 % (0-4); Hematocrit 29.7 % (42.0-52.0); Hemoglobin 8.6 g/dl (14.0-18.0); Lymphocytes Absolute Auto 0.3 X10*3/uL (1.2-4.9); Lymphocytes Percent Auto 26.2 % (20-40); MANUAL DIFF FLAG SCAN; Mean Corpuscular Volume 69.2 fL (80.0-98.0); Monocytes Absolute Auto 0.2 X10*3/uL (0.1-1.2); Monocytes Percent Auto 11.5 % (2-11); Neutrophils Absolute Auto 0.8 x10*3/uL (2.0-8.3); Neutrophils Percent Auto 58.4 % (45-73); Platelet Count 39 X10*3/uL (160-400); Red Blood Count 4.29 X10*6/uL (4.60-5.80); Red Cell Distribution Width 19.8 % (11.0-16.0); SCAN SMEAR FLAG 1; White Blood Count 1.3 X10*3/uL (4.8-10.8)
[2024-12-27 12:39] LABS: Estimated Average Glucose 246 mg/dL; Hemoglobin A1c % 10.2 % (<6.0)
[2024-12-27 12:45] LABS: Appearance Urine Clear; Color Urine Yellow; Glucose Urine UA >=1000 mg/dL (Negative); Leukocyte Esterase Urine Negative (Negative); Nitrite Urine Negative (Negative); PH 6.5 (5.0-9.0); Specific Gravity - Urine >= 1.030 (1.005-1.025); UMIC TRIGGER UACC YES; Urine Blood Negative (Negative); Urine Ketones Trace mg/dL (Negative); Urine Protein Negative (Neg-Trace)
[2024-12-27 12:52] LABS: Bacteria Urine None Seen (None Seen); Hyaline Casts Urine 0-2 /LPF (0-2); RBC Urine 0-2 /HPF (0-2); Squamous Epithelial Cell Urine 0-2 /HPF (0-2); WBC Urine 0-5 /HPF (0-5)
[2024-12-27 13:02] LABS: Alanine Aminotransferase 16 U/L (0-40); Albumin Level 3.1 g/dL (3.5-5.0); Anion Gap 11 (12-20); Aspartate Amino Transferase 30 U/L (5-37); Bilirubin Total 1.1 mg/dL (0.0-1.0); Blood Urea Nitrogen 10 mg/dL (9-16); Calcium 8.1 mg/dL (8.4-10.2); Carbon Dioxide 26 mmol/L (22-29); Chloride 104 mmol/L (96-108); Cholesterol 105 mg/dL (<200); Estimated Glomerular Filt Rate > 60; Glucose Fasting 337 mg/dL (60-99); HDL Cholesterol 33 mg/dL (>40); LDL Cholesterol Calculated 54 mg/dL (<100); Potassium 3.5 mmol/L (3.3-5.1); Sodium 137 mmol/L (135-145); Total Protein 6.9 g/dL (6.5-8.0); Triglycerides 93 mg/dL (<150)
[2024-12-27 13:03] LABS: Alkaline Phosphatase 139 U/L (39-117)
[2024-12-27 13:17] LABS: TSH reflex Free T4 1.82 uIU/mL (0.32-4.0); Vitamin D 25-OH Total 8.4 ng/mL (>30)
[2024-12-27 13:18] LABS: SLIDE REVIEW VERIFIED
[2024-12-27 13:31] LABS: Creatinine Urine 138.11 mg/dL; Microalbumin Urine < 5.0 mg/L
== END 2024-12-27 11:58 | disposition home or self-care (01) ==
LOC: HO.LAB 11:57
PROVIDERS: PCP Internal Medicine; Visit Provider Internal Medicine
DX: E78.00 Pure hypercholesterolemia, unspecified (principal); E11.9 Type 2 diabetes mellitus without complications; E55.9 Vitamin D deficiency, unspecified; D64.9 Anemia, unspecified
CPT/HCPCS: 36415; 80053; 80061; 81001; 82043; 82306; 82570; 83036; 84443; 85025

== ENCOUNTER 2025-01-11 14:59 | Outpatient (AMB) | payer OTHER, SELFPAY ==
--- NOTE | 2025-01-11 15:10 | A.OFFPC_ITS ---
Vital Signs 01/11/25 15:13 Height 5 ft 7 in Weight 190 lb 4 oz BMI 29.8 BP 130/70 Blood Pressure Location Lt brachial Position Sitting Pulse 110 H Pulse Source Pulse Oximeter Temp 97.7 F Temp Source Temporal Artery Scan Pulse Oximetry (%) 96 Oxygen Delivery Method Room Air Intake Visit Reasons: b/l leg swelling and scrotum swelling Intake Note: Patient is here to follow up on Bilateral leg swelling and scrotum. Process Safety Engineer Required: No Table Runner: Present Accompanied by: Spouse Allergies penicillin G Allergy (Unknown, Verified 01/11/25 18:29) hives Medication List - Last Reconciled 01/11/25 by Niraj Dan MD albuterol sulfate 90 mcg/actuation (Ventolin HFA) 2 puffs PO QID PRN 30 days atorvastatin 10 mg PO BEDTIME 90 days blood sugar diagnostic (FreeStyle Lite Strips) 1 strip miscellaneous TID blood sugar diagnostic (FreeStyle Lite Strips) As directed - test 3 times a day before meals blood-glucose meter (FreeStyle Lite Meter kit) As directed - test 3 times a day before meals to dose Humalog buprenorphine-naloxone 8-2 mg 2 film sublingual Q24H PRN doxycycline hyclate 100 mg PO BID 7 days furosemide (Lasix) 40 mg PO DAILY insulin aspart U-100 (Novolog FlexPen U-100 Insulin aspart) Inject up to 10 to 12 units 3 times a day with meals PER SLIDING SCALE subcut 3 times a day; 30 days insulin glargine 50 units (0.5 mL) subcut QPM lancets As directed lancets (FreeStyle Lancets) As directed - test 3 times a day before meals lorazepam 0.5 mg PO BID PRN 30 days losartan 50 mg PO DAILY 90 days pen needle, diabetic As directed quetiapine 200 mg PO BEDTIME Tobacco use date assessed: 12/26/24 Dental Screening Dental Screen Date: 12/26/24 HPI b/l leg swelling and scrotum swelling HPI Details 54-year-old male presents to the office a sick visit. He is accompanied by his . Patient reports that he is having swelling in his legs and up to his abdomen and scrotum for the past few days. Minimal shortness of breath. No fevers or chills. No nausea or vomiting. Past history of hepatitis C. poorly controlled diabetic with daily sugars running greater than 300. Patient is not compliant with his insulin. He is disabled from work after a stroke. Able to ambulate and do activities of daily living. [facility] Medical History (Updated 01/11/25 @ 18:33 by Niraj Dan MD) Ascites Essential hypertension Broken femur Obesity (BMI 30-39.9) Thrombocytopenia Splenomegaly Overweight (BMI 25.0-29.9) Depression Anxiety Insomnia History of substance abuse Vitamin D deficiency History of hepatitis C Mixed hyperlipidemia Asthma Diabetes mellitus Surgical History No pertinent past surgical history Family History Father Liver failure Diabetes Hypertension CVD (cardiovascular disease) Mother Medical history unknown Social History Housing: Apartment Alcohol intake: never Patient Tobacco Use Status: Former Tobacco user e-Cigarette/Vaping Use: Never Used Second Hand Smoke Exposure: Yes service: No Current occupational status: disabled Cognitive needs: No Hearing needs: No Vision needs: Yes Questionnaire Thrive Questionnaire Date Thrive assessed: 12/26/24 SVITLANA-7 AMB Questionnaire SVITLANA-7 Date SVITLANA - 7 assessed: 12/26/24 Source: Developed by Drs. Freddie Chau, Maritza Wright, Stephen Wisdom and colleagues, with an educational mt from [employer]. Physical exam (Primary Care) Vital Signs: Last Vital Signs Temp 97.7 F 01/11/25 15:13 Pulse 110 H 01/11/25 15:13 BP 130/70 01/11/25 15:13 Pulse Ox 96 01/11/25 15:13 Oxygen Delivery Method Room Air 01/11/25 15:13 Care Plan Goal for BP management: Blood pressure is in range. BMI result Body Mass Index 29.8 Tobacco/Smoking Status: Tobacco use Status Tobacco use date assessed 12/26/24 01/11/25 15:11 Patient Tobacco Use Status Former Tobacco user 01/11/25 15:11 e-Cigarette/Vaping Use Never Used 01/11/25 15:11 Thrive Assessment: Date of Thrive Assessment Date Thrive assessed 12/26/24 01/11/25 15:11 Const General: cooperative and healthy appearing Nutritional Appearance: well nourished Orientation/consciousness: patient oriented x3 Limitations: no limitations HENMT Head: Yes normal to inspection Eyes General: appearance normal, both eyes and all related structures Neck Neck: Yes normal visual inspection Chest Chest palpation & inspection: normal palpation of entire chest wall Resp Other: Diminished breath sounds at the lung base. Effort & Inspection: normal respiratory effort GI Other: Abdomen: Bowel sounds positive. Free fluid in the abdomen. Fluid thrill present. Neuro General: patient oriented x3 Extrem Other: Right and left leg: Pitting edema up to the knees bilaterally. Hyper pigmented areas in the right foot/leg Coding Level of Care Code Est Pt Level 4 (40818) Complex EM visit Add On G2211 Diagnoses Anxiety F41.9 Essential hypertension I10 Ascites R18.8 Assessment & Plan Assessment & Plan (1) Anxiety: Code(s): F41.9 - Anxiety disorder, unspecified Category: Medical (2) Essential hypertension: Code(s): I10 - Essential (primary) hypertension Category: Medical (3) Ascites: Code(s): R18.8 - Other ascites Category: Medical Plan: Patient and his gave no history of alcohol consumption. Liver is decompensating. Blood work has been ordered. Lasix has been ordered. Patient was advised to get the blood work done today. Plan Continue other medications. Tight coverage on his blood sugars suggested. Orders: Orders Basic Metabolic Panel Today F41.9 - Anxiety disorder, unspecified, I10 - Essential (primary) hypertension Liver Panel Today F41.9 - Anxiety disorder, unspecified, I10 - Essential (primary) hypertension Complete Blood Count no Diff Today F41.9 - Anxiety disorder, unspecified, I10 - Essential (primary) hypertension Lipid Panel Today F41.9 - Anxiety disorder, unspecified, I10 - Essential (primary) hypertension Thyroid Stimulating Hormone Today F41.9 - Anxiety disorder, unspecified, I10 - Essential (primary) hypertension UA and rflx microscopic Today F41.9 - Anxiety disorder, unspecified, I10 - Essential (primary) hypertension Medications: New furosemide (Lasix) 40 mg PO DAILY 90 tabs 0RF
[2025-01-11 15:13] VITALS: BP 130/70; PULSE 110; TEMP 36.5; O2SAT 96; BMI 29.8
== END 2025-01-11 16:10 | disposition home or self-care (01) ==
LOC: HO.HMCH 14:59
PROVIDERS: PCP Internal Medicine; Visit Provider Internal Medicine
DX: F41.9 Anxiety disorder, unspecified (principal); I10 Essential (primary) hypertension; R18.8 Other ascites

== ENCOUNTER → 2025-01-11 14:59 | Outpatient (BNVA) | payer OTHER, SELFPAY | PROVIDERS: PCP Internal Medicine; Visit Provider Internal Medicine | DX: F41.9 Anxiety disorder, unspecified (principal); R18.8 Other ascites; I10 Essential (primary) hypertension | CPT/HCPCS: 99212 ==

== ENCOUNTER 2025-01-23 11:15 | Outpatient (REF) | payer OTHER, SELFPAY ==
[2025-01-23 12:09] LABS: Hemoglobin 8.1 g/dl (14.0-18.0); Mean Corpuscular HGB Conc 29.2 g/dl (31.0-36.0); Mean Corpuscular Hemoglobin 20.2 pg (27.0-33.0); Mean Corpuscular Volume 69.1 fL (80.0-98.0); Red Blood Count 4.01 X10*6/uL (4.60-5.80); Red Cell Distribution Width 19.9 % (11.0-16.0)
[2025-01-23 12:10] LABS: White Blood Count 1.1 X10*3/uL (4.8-10.8)
[2025-01-23 12:13] LABS: Appearance Urine Clear; Color Urine Dark Yellow; Glucose Urine UA >=1000 mg/dL (Negative); Leukocyte Esterase Urine Negative (Negative); Nitrite Urine Negative (Negative); Specific Gravity - Urine >= 1.030 (1.005-1.025); UMIC TRIGGER UACC YES; Urine Blood Negative (Negative); Urine Ketones Trace mg/dL (Negative); Urine Protein Trace mg/dL (Neg-Trace)
[2025-01-23 12:15] LABS: Lymphocytes Absolute Auto 0.3 X10*3/uL (1.2-4.9); Monocytes Absolute Auto 0.1 X10*3/uL (0.1-1.2); Neutrophils Absolute Auto 0.7 x10*3/uL (2.0-8.3)
[2025-01-23 12:16] LABS: PLT ABN DIST 1
[2025-01-23 12:17] LABS: Basophils Percent Auto 0.8 % (0-2); Eosinophils Percent Auto 3.4 % (0-4); Estimated Average Glucose 249 mg/dL; Hemoglobin A1c % 10.3 % (<6.0); Imm Gran Abs Auto 0.01 X10*3/uL (0.00-0.03); Imm Gran Pct Auto 0.8 % (0.0-0.4); Lymphocytes Percent Auto 26.1 % (20-40); MANUAL DIFF FLAG SCAN; Monocytes Percent Auto 11.8 % (2-11); Neutrophils Percent Auto 57.1 % (45-73); SCAN SMEAR FLAG 1
[2025-01-23 12:18] LABS: Hematocrit 27.7 % (42.0-52.0); Platelet Count 38 X10*3/uL (160-400)
[2025-01-23 12:30] LABS: Bacteria Urine None Seen (None Seen); Cholesterol 87 mg/dL (<200); HDL Cholesterol 30 mg/dL (>40); Hyaline Casts Urine 0-2 /LPF (0-2); LDL Cholesterol Calculated 38 mg/dL (<100); RBC Urine 0-2 /HPF (0-2); Squamous Epithelial Cell Urine 0-2 /HPF (0-2); Triglycerides 98 mg/dL (<150); WBC Urine 0-5 /HPF (0-5)
[2025-01-23 12:36] LABS: SLIDE REVIEW VERIFIED
[2025-01-23 12:38] LABS: Alanine Aminotransferase 19 U/L (0-40); Alkaline Phosphatase 126 U/L (39-117); Anion Gap 7 (12-20); Aspartate Amino Transferase 33 U/L (5-37); Bilirubin Direct 0.5 mg/dL (0.0-0.5); Blood Urea Nitrogen 8 mg/dL (9-16); Carbon Dioxide 27 mmol/L (22-29); Chloride 105 mmol/L (96-108); Cholesterol 86 mg/dL (<200); Estimated Glomerular Filt Rate > 60; Glucose Fasting 308 mg/dL (60-99); Glucose Random 301 mg/dL (60-115); HDL Cholesterol 32 mg/dL (>40); LDL Cholesterol Calculated 36 mg/dL (<100); Potassium 3.6 mmol/L (3.3-5.1); Sodium 135 mmol/L (135-145); Total Protein 6.3 g/dL (6.5-8.0); Triglycerides 94 mg/dL (<150)
[2025-01-23 12:53] LABS: Vitamin D 25-OH Total 6.3 ng/mL (>30)
[2025-01-23 12:55] LABS: Creatinine Urine 255.45 mg/dL; Microalbum/Creatinine Ratio Ur 4.3 ug/mg cr (<30)
[2025-01-23 13:06] LABS: Folate 10.9 ng/mL (> or = 4.0); Vitamin B12 1004 pg/mL (200-900)
== END 2025-01-23 11:16 | disposition home or self-care (01) ==
LOC: HO.LAB 11:15
PROVIDERS: Absent Provider Internal Medicine; PCP Internal Medicine; Visit Provider Internal Medicine
DX: E11.9 Type 2 diabetes mellitus without complications (principal); E55.9 Vitamin D deficiency, unspecified; E53.8 Deficiency of other specified B group vitamins; F41.9 Anxiety disorder, unspecified; I10 Essential (primary) hypertension; E78.00 Pure hypercholesterolemia, unspecified
CPT/HCPCS: 36415; 80048; 80053; 80061; 80076; 81001; 82043; 82248; 82306; 82570; 82607; 82746; 83036; 84443; 85025; 85027

== ENCOUNTER 2025-01-25 13:21 | Outpatient (AMB) | payer OTHER, SELFPAY ==
--- NOTE | 2025-01-25 13:38 | MHC.PC.OV ---
Vital Signs 01/25/25 13:39 Height 5 ft 7 in Weight 186 lb 2 oz BMI 29.1 BP 142/68 H Blood Pressure Location Lt brachial Position Sitting Pulse 97 Pulse Source Pulse Oximeter Temp 97.3 F Temp Source Temporal Artery Scan Pulse Oximetry (%) 96 Oxygen Delivery Method Room Air Intake Visit Reasons: 2 Week f/u Intake Note: Patient is here to follow up on Edema on lower extremities . Investigator Narcotics Required: No Audit Reviewer: Present Accompanied by: Spouse Allergies penicillin G Allergy (Unknown, Verified 01/25/25 13:38) hives Tobacco use date assessed: 01/25/25 Dental Screening Dental Screen Date: 12/26/24 [facility] Medical History (Updated 01/11/25 @ 18:33 by Niraj Dan MD) Ascites Essential hypertension Broken femur Obesity (BMI 30-39.9) Thrombocytopenia Splenomegaly Overweight (BMI 25.0-29.9) Depression Anxiety Insomnia History of substance abuse Vitamin D deficiency History of hepatitis C Mixed hyperlipidemia Asthma Diabetes mellitus Surgical History No pertinent past surgical history Family History Father Liver failure Diabetes Hypertension CVD (cardiovascular disease) Mother Medical history unknown Social History Housing: Apartment Alcohol intake: never Patient Tobacco Use Status: Former Tobacco user e-Cigarette/Vaping Use: Never Used Second Hand Smoke Exposure: Yes service: No Current occupational status: disabled Cognitive needs: No Hearing needs: No Vision needs: Yes Questionnaire Thrive Questionnaire Date Thrive assessed: 12/26/24 SVITLANA-7 AMB Questionnaire SVITLANA-7 Date SVITLANA - 7 assessed: 12/26/24 Source: Developed by Drs. Freddie Chau, Maritza Wright, Stephen Wisdom and colleagues, with an educational mt from [employer]. Physical exam (Primary Care) Vital Signs: Last Vital Signs Temp 97.3 F 01/25/25 13:39 Pulse 97 01/25/25 13:39 BP 142/68 H 01/25/25 13:39 Pulse Ox 96 01/25/25 13:39 Oxygen Delivery Method Room Air 01/25/25 13:39 BMI result Body Mass Index 29.1 Tobacco/Smoking Status: Tobacco use Status Tobacco use date assessed 01/25/25 01/25/25 13:44 Patient Tobacco Use Status Former Tobacco user 01/25/25 13:44 e-Cigarette/Vaping Use Never Used 01/25/25 13:44 Thrive Assessment: Date of Thrive Assessment Date Thrive assessed 12/26/24 01/25/25 13:44 Coding Level of Care Code Est Pt Level 4 (58919) Complex EM visit Add On G2211 Diagnoses Type 2 diabetes mellitus with hyperglycemia, with long-term current use of insulin E11.65; Z79.4 Diabetes mellitus type: type 2 Diabetes mellitus chcf insulin use: with chcf use Diabetes mellitus complication status: with hyperglycemia Ascites R18.8 Assessment & Plan Assessment & Plan (1) Diabetes mellitus: Code(s): E11.9 - Type 2 diabetes mellitus without complications Category: Medical Qualifiers: Diabetes mellitus type: type 2 Diabetes mellitus chcf insulin use: with remote computer terminal operator use Diabetes mellitus complication status: with hyperglycemia Qualified Code(s): E11.65 - Type 2 diabetes mellitus with hyperglycemia; Z79.4 - [facility] (current) use of insulin Plan: Poor Sugar Control. Increase basal insulin by ten units and the bolus insulin by 5 units for every meal (2) Ascites: Code(s): R18.8 - Other ascites Category: Medical Plan: Symptomatically improved. GI consult requested Plan History of Present Illness The patient is a 54-year-old male presenting with issues related to fluid overload and the management of diabetes mellitus. The patient has been on furosemide 40 mg, which helped to some extent with fluid retention, but high blood sugar levels remain a concern. He administers basal insulin (Lantus) and bolus doses with meals. Hyperglycemia is confirmed via glucose monitoring. 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 The patient has ceased seeing his previous documentation liaison after completing hepatitis treatment and currently reports no alcohol consumption. Social History - Denies alcohol consumption. Review of Systems - Gastrointestinal: Reports abdominal fluid or ascites. - Endocrine: Reports hyperglycemia confirmed by sensor readings. Physical Exam General: Appearance normal, both eyes and all related structures Nutritional Appearance: Well nourished Orientation/consciousness: Patient oriented x3 Limitations: No limitations Head: Normal to inspection Neck: Normal visual inspection Chest: Fluid thrill present, indicating fluid in the abdomen Respiratory: Fluid in the lungs Neurology: Patient oriented x3 Results Plan The patient will continue with furosemide for ongoing fluid management. An increased dosage of insulin has been planned to address hyperglycemia. I will coordinate a referral to gastroenterology to manage end-stage liver disease resulting from Hepatitis C. The patient must continue to abstain from alcohol. Ongoing monitoring and further evaluation of hepatic encephalopathy and ascites are necessary. Patient was informed and verbally consented to the use of an ambient scribe for clinic note documentation during this visit. Discussion Notes I discussed the importance of managing diabetes and its impact on overall health, especially with underlying liver disease. The potential benefits of adjusting insulin therapy to better control blood glucose levels were explained, including reducing the long-term complications that could exacerbate hepatic conditions. I addressed the necessity of gastroenterology follow-up for specialized management of end-stage liver disease and discussed the risks and benefits of continuing furosemide. Abstaining from alcohol was highlighted, further explaining how it negatively impacts liver function. Future follow-up plans include monitoring and coordinating care with specialists. Patient Instructions - Continue taking furosemide 40 mg for fluid management. - Increase your nightly Lantus dose to 60 units. - Administer 15 units of short-acting insulin before each meal. - Avoid all alcohol consumption. - Follow up with a documentation liaison as referred for your liver condition. - Monitor blood sugar levels regularly and report significant changes. - Return to the clinic for evaluation if you notice any changes in your health.
[2025-01-25 13:39] VITALS: BP 142/68; PULSE 97; TEMP 36.3; O2SAT 96; BMI 29.1
== END 2025-01-25 14:18 | disposition home or self-care (01) ==
LOC: HO.HMCH 13:21
PROVIDERS: PCP Internal Medicine; Visit Provider Internal Medicine
DX: E11.65 Type 2 diabetes mellitus with hyperglycemia (principal); Z79.4 Long term (current) use of insulin; R18.8 Other ascites

== ENCOUNTER → 2025-01-25 13:21 | Outpatient (BNVA) | payer OTHER, SELFPAY | PROVIDERS: PCP Internal Medicine; Visit Provider Internal Medicine | DX: E11.65 Type 2 diabetes mellitus with hyperglycemia (principal); R18.8 Other ascites; Z79.4 Long term (current) use of insulin | CPT/HCPCS: 99212 ==

== ENCOUNTER 2025-06-11 15:42 | Outpatient (AMB) | payer OTHER, SELFPAY ==
--- NOTE | 2025-06-11 15:45 | MHC.PC.OV ---
Vital Signs 06/11/25 15:47 Height 5 ft 7 in Weight 189 lb 6 oz BMI 29.7 BP 120/68 Blood Pressure Location Lt brachial Position Sitting Pulse 96 Pulse Source Pulse Oximeter Pulse Oximetry (%) 96 Oxygen Delivery Method Room Air Intake Visit Reasons: 3M follow up- A1C needed Electrolysis Investigator Required: No Accompanied by: Self / Same As Patient Allergies penicillin G Allergy (Unknown, Verified 06/11/25 16:14) hives Medication List - Last Reconciled 06/11/25 by Jony Hernandez MD albuterol sulfate 90 mcg/actuation (Ventolin HFA) 2 puffs PO QID PRN 30 days atorvastatin 10 mg PO BEDTIME 90 days blood sugar diagnostic (FreeStyle Lite Strips) 1 strip miscellaneous TID blood sugar diagnostic (FreeStyle Lite Strips) As directed - test 3 times a day before meals blood-glucose meter (FreeStyle Lite Meter kit) As directed - test 3 times a day before meals to dose Humalog buprenorphine-naloxone 8-2 mg 2 film sublingual Q24H PRN doxycycline hyclate 100 mg PO BID 7 days furosemide (Lasix) 40 mg PO DAILY insulin aspart U-100 (Novolog FlexPen U-100 Insulin aspart) Inject up to 10 to 12 units 3 times a day with meals PER SLIDING SCALE subcut 3 times a day; 30 days insulin glargine 50 units (0.5 mL) subcut QPM lancets As directed lancets (FreeStyle Lancets) As directed - test 3 times a day before meals lorazepam 0.5 mg PO BID PRN 30 days losartan 50 mg PO DAILY 90 days pen needle, diabetic As directed quetiapine 200 mg PO BEDTIME Tobacco use date assessed: 06/11/25 Dental Screening Dental Screen Date: 06/11/25 Did you have a dental visit in the last 12 months?: No Did you have a dental problem in the last 6 months where you did not have access to dental care?: No Was dental information given to patient?: No [facility] Medical History Ascites Essential hypertension Broken femur Obesity (BMI 30-39.9) Thrombocytopenia Splenomegaly Overweight (BMI 25.0-29.9) Depression Anxiety Insomnia History of substance abuse Vitamin D deficiency History of hepatitis C Mixed hyperlipidemia Asthma Diabetes mellitus Surgical History No pertinent past surgical history Family History Father Liver failure Diabetes Hypertension CVD (cardiovascular disease) Mother Medical history unknown Social History Housing: Apartment Alcohol intake: never Patient Tobacco Use Status: Former Tobacco user e-Cigarette/Vaping Use: Never Used Second Hand Smoke Exposure: Yes service: No Current occupational status: disabled Cognitive needs: No Hearing needs: No Vision needs: Yes Questionnaire PHQ-9 Over the last 2 weeks, how often have you been bothered by any of the following problems? 1. Little interest or pleasure in doing things: several days 2. Feeling down, depressed, or hopeless: not at all 3. Trouble falling or staying asleep, or sleeping too much: not at all 4. Feeling tired or having little energy: not at all 5. Poor appetite or overeating: several days 6. Feeling bad about yourself - or that you are a failure or have let yourself or your family down: not at all 7. Trouble concentrating on things, such as reading the newspaper or watching television: not at all 8. Moving or speaking so slowly that other people could have noticed. Or the opposite - being so fidgety or restless that you have been moving around a lot more than usual: not at all 9. Thoughts that you would be better off or of hurting yourself in some way: not at all Total score: 2 Depression Screening Interpretation: Negative (is on Rx for depression) Depression Screening Done: Yes 71814 - PHQ-9 Billing: Yes Source: Developed by Drs. Freddie Chau, Maritza Wright, Stephen Wisdom and colleagues, with an educational mt from [employer]. Thrive Questionnaire Date Thrive assessed: 06/11/25 I am a: Patient What is your living situation today?: I have a steady place to live Within the past 12 months, did the food you bought not last and you didn't have the money to get more?: Often true Within the past 12 months, did you worry whether your food would run out before you got money to buy more?: Often true Do you have trouble paying for medicines?: No Do you have trouble getting transportation to medical appointments?: No Do you have trouble paying your heating and electricity bill?: No Do you have trouble taking care of your child, family member or friend?: No Do you have trouble with day-to-day activities such as bathing, preparing meals, shopping, managing finances, etc.?: No Are you currently unemployed and looking for a job?: No Are you interested in more education?: No Please select the resources that you would like help with: None Currently or been in a relationship where the following occur: I choose not to answer THRIVE Score: 2 AUDIT C Alcohol Use Questionnaire (AUDIT-C) 1. How often do you have a drink containing alcohol?: Never 3. How often do you have six or more drinks on one occasion?: Never Total Score: 0 Score Reviewed/Action Taken: Yes SVITLANA-7 AMB Questionnaire SVITLANA-7 Date SVITLANA - 7 assessed: 06/11/25 Feeling nervous, anxious, or on edge: 0 = Not at all Not being able to stop or control worryin = Not at all Worrying too much about different things: 0 = Not at all Trouble relaxin = Not at all Being so restless that it is hard to sit still: 0 = Not at all Becoming easily annoyed or irritable: 0 = Not at all Feeling afraid as if something awful might happen: 0 = Not at all Total SVITLANA-7 score (0-4 normal; 5-9 mild; 10-14 moderate; 15-21 severe): 0 Source: Developed by Drs. Freddie Chau, Maritza Wright, Stephen Wisdom and colleagues, with an educational mt from [employer]. Physical exam (Primary Care) Vital Signs: Last Vital Signs Pulse 96 06/11/25 15:47 BP 120/68 06/11/25 15:47 Pulse Ox 96 06/11/25 15:47 Oxygen Delivery Method Room Air 06/11/25 15:47 BMI result Body Mass Index 29.7 Tobacco/Smoking Status: Tobacco use Status Tobacco use date assessed 06/11/25 06/11/25 15:53 Patient Tobacco Use Status Former Tobacco user 06/11/25 15:53 e-Cigarette/Vaping Use Never Used 06/11/25 15:53 PHQ-9: PHQ-9 Score PHQ-9: Total score 2 06/11/25 15:57 Depression Screening Interpretation: Negative (is on Rx for depression) Thrive Assessment: Date of Thrive Assessment Date Thrive assessed 06/11/25 06/11/25 15:53 Currently or been in a relationship where the following occur: I choose not to answer Results AMB Hemoglobin A1c AMB Hemoglobin A1c 8.3 % Last Edit by CHARBEL Sheridan on 06/11/25 16:17 Coding Additional Codes PHQ-9 - 98534 - PHQ-9 Billing: Yes ([id number]) Assessment & Plan Assessment & Plan Orders: Orders Complete Blood Count Auto Diff 4 Months D64.9 - Anemia, unspecified Comprehensive [place]. Panel Fast 4 Months E78.00 - Pure hypercholesterolemia, unspecified Lipid Panel 4 Months E78.00 - Pure hypercholesterolemia, unspecified UA CC w/rflx Micro + Cult 4 Months R30.0 - Dysuria Microalbumin, Random (w Creat) 4 Months E11.9 - Type 2 diabetes mellitus without complications Vitamin B12 and Folate 4 Months E53.8 - Deficiency of other specified B group vitamins Vitamin D 25-OH Total 4 Months E55.9 - Vitamin D deficiency, unspecified AMB Hemoglobin A1c Today Z13.9 - Encounter for screening, unspecified TSH reflex Free T4 4 Months E78.00 - Pure hypercholesterolemia, unspecified Hemoglobin A1c 4 Months E11.9 - Type 2 diabetes mellitus without complications
--- OUTSIDE RECORDS SUMMARY | 2025-06-11 15:46 | XMS_ITS | Clinical Summary ---
Author Organization [facility] Address [address] [place] [address] Phone Care Team Providers Care Television Reporter Name Role Phone Jony Hernandez MD Primary Care Provider Allergies Active Allergy Reactions Criticality Noted Date Comments Penicillins 05/16/2024 Medications QUEtiapine (SEROquel) 200 mg tablet Take 1 Tablet by mouth at bedtime. Active LORazepam (ATIVAN) 0.5 mg tablet Take 1 tablet (0.5 mg total) by mouth 1 (one) time each day if needed. Max Daily Amount: 0.5 mg Active losartan (COZAAR) 50 mg tablet Take 1 tablet (50 mg total) by mouth 1 (one) time each day. Active mometasone (Asmanex Twisthaler) 220 mcg/ actuation (120) aerosol powdr breath activated inhaler Inhale into the lungs. Active buprenorphine-nal oxone (SUBOXONE) 8-2 mg per [address] film Place 1.5 Each under the tongue daily. Active blood-glucose meter misc Use to check BS daily 4 Active blood sugar diagnostic (FreeStyle Lite Strips) test strip Use ot check BS 4 Active FREESTYLE LANCETS MISC Use to check BS daily 4 Active blood-glucose meter,continuous (FreeStyle Nolan 3 [place]) misc 1 Device by Does not apply route daily. 4 Active blood-glucose sensor (FREESTYLE NOLAN 3 SENSOR MISC) 1 Device by Does not apply route every 14 days. 4 Active glucagon 1 mg/0.2 mL auto-injector Inject 1 Dose into the skin as needed for Other (low blood sugar). Active FreeStyle Lite Meter monitoring kitIndications:Di abetes mellitus due to underlying condition with hyperglycemia ([facility] V24, [facility] V28) USE TO CHECK BLOOD SUGAR DAILY 1 kit 5 Active atorvastatin (LIPITOR) 10 mg tablet Take 1 tablet (10 mg total) by mouth at bedtime. 5 Active spironolactone (ALDACTONE) 100 mg tablet Take 1 tablet (100 mg total) by mouth 1 (one) time each day. 5 Active metFORMIN XR (GLUCOPHAGE-XR) 500 mg 24 hr tablet Take 2 tablets (1,000 mg total) by mouth 2 (two) times a day before meals. 5 Active Ventolin HFA 90 mcg/actuation inhaler Inhale 2 puffs by mouth every 6 (six) hours if needed for shortness of breath or wheezing. 5 Active furosemide (LASIX) 40 mg tablet Take 1 tablet (40 mg total) by mouth 1 (one) time each day. 5 Active Xifaxan 550 mg tablet Take 1 tablet (550 mg total) by mouth 2 (two) times a day. 5 Active insulin glargine (LANTUS SoloStar) 100 unit/mL (3 mL) injection pen Inject 50 Units under the skin 1 (one) time each day. Inject 50 Units into the skin daily. 45 mL 3 5 Active insulin lispro (HumaLOG KwikPen) 100 unit/mL injection pen Inject 3 times a day with meals per sliding scale: 100-149: 10 units; 150-200: 12 units; 201-250: 14 units; 251-300: 16 units; 301-350: 18 units; 351-400: 20 units; 401-450: 22 units 15 mL 11 5 Active insulin aspart (NovoLOG) 100 unit/mL injectionIndicati ons:Type 2 diabetes mellitus with other specified complication, with long-term current use of insulin ([facility] V24, [facility] V28) Inject 3 times a day with meals per sliding scale: 100-149: 10 units; 150-200: 12 units; 201-250: 14 units; 251-300: 16 units; 301-350: 18 units; 351-400: 20 units; 401-450: 22 units 45 mL 3 5 025 Discontin ued(Reginaldou leyla change) Active Problems Problem Noted Date Diagnosed Date Anxiety state 05/16/2024 Depressive disorder 05/16/2024 Diabetes mellitus type 2, co ntrolled, with complications ([facility] V24, [facility] V28) 05/16/2024 Essential hypertension 05/16/2024 Mixed hyperlipidemia 05/16/2024 Insomnia 05/16/2024 History of substance abuse ([facility] V24, [facility] V28) 05/16/2024 Encounters Date Type Department Care Team Description 05/11/2025 Telephone Endocrinology [address] [phone] Latosha Astorga PA PRIOR AUTHORIZATION 05/10/2025 3:30 PM EDT Office Visit Endocrinology - [address] [address] Latosha Astorga PA Type 2 diabetes mellitus with other specified complication, with long-term current use of insulin ([facility] V24, [facility] V28) (Primary Dx) 04/09/2025 Telephone Endocrinology - [address] [phone] Latosha Astorga PA from Last 3 Months Medical History Medical History Date Comments Anxiety state DX:Anxiety state Depressive disorder DX:Depressiv e disorder Diabetes mellitus type 2, co ntrolled, with complications ([facility] V24, [facility] V28) DX:Diabetes mellitus type 2, controlled, with complications (HCC) Thrombocytopenia ([facility] V24) D X:Thrombocytopenia (HCC) Insomnia DX:Insomnia History of hepatitis C DX:Histor y of hepatitis C Mixed hyperlipidemia DX:Mixed hy perlipidemia History of substance abuse ( [facility] V24, [facility] V28) DX:History of substance abus e (HCC) Essential hypertension DX:Essent ial hypertension Social History Tobacco Use Types Packs/Day Years Used Date Smoking Tobacco: Never Smokeless Tobacco: Never Tobacco Cessation:Counseling Given: Not Answered Sex and Gender Information Value Date Recorded Sex Assigned at Not on file Legal Sex Male 11:06 AM EDT Gender Identity Not on file Sexual Orientation Not on file Obstetrics History Last Filed Vital Signs Vital Sign Reading Time Taken Comments Blood Pressure 120/64 05/10/2025 3:42 PM EDT C Pulse 101 05/10/2025 3:42 PM EDT Temperature 36.4 C (97.5 F) 05/10/2025 3:42 PM EDT Respiratory Rate - - Oxygen Saturation 96% 05/16/2024 1:3 9 PM EDT at rest, room air Inhaled Oxygen Concentration - - Weight 81.6 kg (180 lb) 05/10/2025 3:42 PM EDT Height 170.2 cm (5' 7 ) 05/10/2025 3:42 PM EDT Body Mass Index 28.19 05/10/2025 3:42 PM EDT Plan of Treatment Upcoming Encounters Date Type Department Care Team (Late st Contact Info) Description 07/18/2025 2:00 PM EDT Office Visit Endocrinology - [place] [address] [place] [address] Latosha Astorga PA [address] [place] [address] Health Maintenance Due Date Last Done Comments Diabetes: Annual Foot Exam 1980 Diabetes: Annual Retina Eye Exam 1980 Hepatitis B Vaccines (1 of 3 - 19+ 3-dose series) 1989 Pneumococcal Vaccine: 50+ Years (1 of 2 - PCV) 1989 Zoster Vaccines (1 of 2) 2020 Colorectal Cancer Screening: Colonoscopy 05/26/2024 HIV Screening 05/26/2024 Hepatitis C Screening 05/26/2024 Social Influencers of Health Screening 05/26/2024 COVID-19 Vaccine ( season) 2024 Depression Screening 11/01/2024 05/16/2024 Influenza Vaccine (#1) 2025 Diabetes: Blood Sugar Control Test (HGBA1C) 11/10/2025 05/10/2025, 05/16/2024, 05/16/2024 Diabetes: Annual Urine Albumin-Creatinine Ratio (uACR) 05/10/2026 05/10/2025, 05/16/2024 Diabetes: Annual GFR (Glomerular Filtration Rate) 05/10/2026 05/10/2025, 05/16/2024, 05/16/2024, Additional history exists Hypertension/CHF/CAD Annual BMP Blood Test 05/10/2026 05/10/2025, 05/16/2024, 05/16/2024, Additional history exists Cholesterol Screening (Lipid Panel) 05/10/2030 05/10/2025, 05/16/2024, 05/16/2024 DTaP,Tdap,and Td Vaccines (2 - Td or Tdap) 02/01/2032 01/31/2022 HIB Vaccines Aged Out No longer eligi ble based on patient's age to complete this topic HPV Vaccines Aged Out No longer eligi ble based on patient's age to complete this topic Hepatitis A Vaccines Aged Out No long er eligible based on patient's age to complete this topic IPV Vaccines Aged Out No longer eligi ble based on patient's age to complete this topic MMR Vaccines Aged Out No longer eligi ble based on patient's age to complete this topic Meningococcal ACWY Vaccine Aged Out N o longer eligible based on patient's age to complete this topic Meningococcal B Vaccine Aged Out No l onger eligible based on patient's age to complete this topic RSV Immunization Patients Under 20 months Aged Out No longer eligible based on patient's age to complete this topic Varicella Vaccines Aged Out No longer eligible based on patient's age to complete this topic Procedures Procedure Name Priority Date/Time Associated Diagnosis Comments POC GLUCOSE Routine 05/11/2025 9:47 AM EDT Type 2 diabetes mellitus with other specified complication, with long-term current use of insulin ([facility] V24, [facility] V28) HEMOGLOBIN A1C Routine 05/10/2025 4:23 PM EDT Type 2 diabetes mellitus with other specified complication, with long-term current use of insulin ([facility] V24, [facility] V28) BASIC METABOLIC PANEL Routine 05/10/2025 4:23 PM EDT Type 2 diabetes mellitus with other specified complication, with long-term current use of insulin ([facility] V24, [facility] V28) LIPID PANEL WITH REFLEX TO DIRECT LDL Routine 05/10/2025 4:23 PM EDT Type 2 diabetes mellitus with other specified complication, with long-term current use of insulin ([facility] V24, [facility] V28) MICROALBUMIN CREATININE URINE RATIO Routine 05/10/2025 4:23 PM EDT Type 2 diabetes mellitus with other specified complication, with long-term current use of insulin ([facility] V24, [facility] V28) DEPRESSION SCREENING Routine 05/16/2024 from Last 3 Months or Most Recently Relevant to Health Maintenance Results * POC glucose manually resulted (05/11/2025 9:47 AM EDT) [facility] Glucose POC 310 mg/dL Blood Capillary blood specimen / Unknown 05/11/2025 9:47 AM EDT Latosha HOLLINS POINT OF CARE TEST ENTER/ED IT ORDERABLES Final Result * Lipid panel with reflex to direct LDL (05/10/2025 4:23 PM EDT) [facility] Cholesterol 81 0 - 200 mg/dL LAB CHEMISTRY METHOD 05/10/2025 7:47 PM EDT [facility] Triglycerides 73 0 - 150 mg/dL LAB CHEMISTRY METHOD 05/10/2025 7:47 PM EDT [facility] HDL 44 >=40 mg/dL LAB CHEMISTRY METHOD 05/10/2025 7:47 PM EDT [facility] LDL Calculated 22 0 - 100 mg/dL LAB CHEMISTRY METHOD 05/10/2025 7:47 PM EDT [facility] VLDL Cholesterol Luis Armando 14.6 mg/dL LAB CHEMISTRY METHOD 05/10/2025 7:47 PM T [facility] Non HDL Chol. (LDL+VLDL) 37 <145 mg/dL LAB CHEMISTRY METHOD 05/10/2025 7:47 PM EDT [facility] Chol/HDL Ratio 1.8 0.0 - 4.4 LAB CHEMISTRY METHOD 05/10/2025 7:47 PM EDT [facility] Blood Venous blood specimen / Unknown Venipuncture / Unknown 05/10/2025 4:23 PM EDT 05/10/2025 4:23 PM EDT Latosha HOLLINS LAB BLOOD ORDERABLES Final Result [facility] [address] [place] [address], [place] [phone] * Microalbumin creatinine urine ratio (05/10/2025 4:23 PM EDT) Creatinine, Urine 213.0 mg/dL LAB CHEMISTRY METHOD 05/10/2025 7:46 PM EDT [facility] Microalb, Ur 14.1 0.0 - 29.0 mg/L LAB CHEMISTRY METHOD 05/10/2025 7:46 PM EDT [facility] Microalb/Creat Ratio 7 <30 mg/g creat LAB CHEMISTRY METHOD 05/10/2025 7:46 PM EDT [facility] Urine Urine specimen from urethra / Unknown Non-blood Collection / Unknown 05/10/2025 4:23 PM EDT 05/10/2025 4:23 PM EDT Latosha HOLLINS LAB URINE ORDERABLES Final Result Performing Organization Address City/[facility]/ZIP Co de Phone Number [facility] [address] [place] [address], [place] [phone] * (ABNORMAL) Hemoglobin A1c (05/10/2025 4:23 PM EDT) Hemoglobin A1C 9.9(H) <6.5 % LAB CHEMISTRY METHOD 05/10/2025 9:52 PM EDT [facility] Mean Bld Glu Estim. 237 mg/dL LAB CHEMISTRY METHOD 05/10/2025 9:52 PM [facility] Blood Venous blood specimen / Unknown Venipuncture / Unknown 05/10/2025 4:23 PM EDT 05/10/2025 4:23 PM EDT us Latosha HOLLINS LAB BLOOD ORDERABLES Final Result [facility] [address] [place] [address], [place] [phone] * (ABNORMAL) Basic metabolic panel (05/10/2025 4:23 PM EDT) Sodium 136 133 - 145 mmol/L LAB CHEMISTRY METHOD 05/10/2025 7:43 PM [facility] Potassium 3.9 3.5 - 5.5 mmol/L LAB CHEMISTRY METHOD 05/10/2025 7:43 PM [facility] Chloride 103 96 - 110 mmol/L LAB CHEMISTRY METHOD 05/10/2025 7:43 PM [facility] CO2 29 21 - 32 mmol/L LAB CHEMISTRY METHOD 05/10/2025 7:43 PM [facility] Anion Gap 4 3 - 11 LAB CHEMISTRY METHOD 05/10/2025 7:43 PM [facility] Glucose 279(H) 70 - 100 mg/dL LAB CHEMISTRY METHOD 05/10/2025 7:43 PM [facility] BUN 13 5 - 25 mg/dL LAB CHEMISTRY METHOD 05/10/2025 7:43 PM [facility] Creatinine 0.58(L) 0.70 - 1.30 mg/dL LAB CHEMISTRY METHOD 05/10/2025 7:43 PM [facility] eGFR 116 >=60 mL/min/1. 73m2 LAB CHEMISTRY METHOD 05/10/2025 7:43 PM [facility] Comment:Calculation based on the Chronic Kidney Disease Epidemiology Collaboration (CKD-EPI) equation refit without adjustment for race. BUN/Creatinine Ratio 22.4 LAB CHEMISTRY METHOD 05/10/2025 7:43 PM EDT [facility] Calcium 8.3(L) 8.5 - 10.5 mg/dL LAB CHEMISTRY METHOD 05/10/2025 7:43 PM EDT [facility] Blood Venous blood specimen / Unknown Venipuncture / Unknown 05/10/2025 4:23 PM EDT 05/10/2025 4:23 PM EDT us Latosha HOLLINS LAB BLOOD ORDERABLES Final Result [facility] [address] [place] [address], [place] [phone] * Depression Screening (05/16/2024) Depression Screening abstracted us Historical Provider HEALTH MAINTENANCE Final Result from Last 3 Months or Most Recently Relevant to Health Maintenance Insurance [facility] [employer] Care Teams Television Reporter Relationship Specialty Start Date End Date Jony Hernandez MD [address] [place] [address] [address] [place], [place] PCP - General 12/27/23
[2025-06-11 15:47] VITALS: BP 120/68; PULSE 96; O2SAT 96; BMI 29.7
== END 2025-06-11 16:25 | disposition home or self-care (01) ==
LOC: HO.HMCH 15:43
PROVIDERS: PCP Internal Medicine; Visit Provider Internal Medicine
DX: Z13.9 Encounter for screening, unspecified (principal)

== ENCOUNTER → 2025-06-11 15:42 | Outpatient (BNVA) | payer OTHER, SELFPAY | PROVIDERS: PCP Internal Medicine; Visit Provider Internal Medicine | DX: E11.65 Type 2 diabetes mellitus with hyperglycemia (principal); E66.3 Overweight; E78.2 Mixed hyperlipidemia; I10 Essential (primary) hypertension; J45.40 Moderate persistent asthma, uncomplicated; E55.9 Vitamin D deficiency, unspecified; R16.1 Splenomegaly, not elsewhere classified; D69.6 Thrombocytopenia, unspecified; K74.60 Unspecified cirrhosis of liver; F19.11 Other psychoactive substance abuse, in remission; G47.00 Insomnia, unspecified; F41.9 Anxiety disorder, unspecified; F33.9 Major depressive disorder, recurrent, unspecified; D64.9 Anemia, unspecified; E78.00 Pure hypercholesterolemia, unspecified; R30.0 Dysuria; E53.8 Deficiency of other specified B group vitamins; Z86.19 Personal history of other infectious and parasitic diseases; Z68.29 Body mass index [BMI] 29.0-29.9, adult | CPT/HCPCS: 83036; 96127; 99212 ==

== ENCOUNTER 2025-08-01 15:33 | Emergency (ER) | payer OTHER, SELFPAY ==
--- NOTE | ~2025-08-01 | XR_ITS ---
EXAMINATION: XR CHEST CLINICAL INFORMATION: SOB COMPARISON: January 12, 2018 CT chest TECHNIQUE: 2 views of the chest were obtained. FINDINGS: The heart size is prominent. There is increased attenuation in the right perihilar lung. There is linear atelectasis in the left lung base. No definite pleural effusion is identified. Multiple chronic right lateral rib fractures are present. The proximal end of an intramedullary nail is seen in the proximal right humerus. XR/XR chest 2V IMPRESSION: Cardiomegaly and increased density in the right perihilar could represent pulmonary edema or pneumonia. Electronically signed by: Saúl Zapata MD 08/01/2025 05:06 PM EDT
[2025-08-01 16:17] VITALS: BP 135/62; PULSE 89; RESP 18; TEMP 36.4; O2SAT 97; BMI 31.5
--- NOTE | 2025-08-01 16:22 | ED_ITS ---
HPI - General Adult General Chief complaint: Dyspnea Stated complaint: Liver failure Time Seen by Provider: 08/01/25 17:00 Source: patient Mode of arrival: ambulatory Limitations: no limitations History of Present Illness ED Provider: Dr. Rossi HPI narrative: 54-year-old male history of liver cirrhosis, hepatitis C, hypertension, IV drug use , diabetes presented hospital today for evaluation for shortness of breath. Patient is given complaining of exertional shortness of breath.. Denies any bleeding denies any hemoptysis denies any hematemesis denies any dark stool or any signs of GI bleed. Patient is currently following [facility] for evaluation of possible liver transplant. Patient stated that he has not been coughing. He does not have any sore throat nasal congestion. No fever. Related Data Home Medications ?Medication ?Instructions ?Recorded ?Confirmed lancets 28 gauge #100 ea 09/03/20 06/11/25 buprenorphine 8 mg-naloxone 2 mg 2 film sublingual Q24 H PRN 12/26/24 06/11/25 sublingual film Previous Rx's ?Medication ?Instructions ?Recorded blood sugar diagnostic (FreeStyle 1 strip miscellaneou s TID #100 02/01/21 Lite Strips) strips pen needle, diabetic 32 gauge x #100 ea 04/19/21 lancets 28 gauge (FreeStyle #100 ea 11/19/21 Lancets) blood-glucose meter (FreeStyle #1 ea 12/26/21 Lite Meter kit) blood sugar diagnostic (FreeStyle #100 ea 11/28/23 Lite Strips) albuterol sulfate 90 mcg/actuation 2 puff PO QID PRN s hortness of 12/26/24 aerosol inhaler (Ventolin HFA) breath or wheezing 30 d ays #8.5 grams doxycycline hyclate 100 mg capsule 100 mg PO BID 7 day s #14 caps 12/26/24 insulin aspart U-100 100 unit/mL See Rx Instructions s ubcut TID 30 12/26/24 (3 mL) subcutaneous pen (Novo days #15 mL FlexPen U-100 Insulin aspart) insulin glargine 100 unit/mL (3 50 unit (0.5 mL) subcu t QPM #15 mL 12/26/24 mL) subcutaneous pen atorvastatin 10 mg tablet 10 mg PO BEDTIME 90 days #90 tabs 06/19/25 losartan 50 mg tablet 50 mg PO DAILY 90 days #90 t abs 06/19/25 lorazepam 0.5 mg tablet 0.5 mg PO BID PRN anxiety 30 days 06/26/25 #30 tabs quetiapine 200 mg tablet 200 mg PO BEDTIME #30 tabs 0 06/26/25 furosemide 40 mg tablet (Lasix) 40 mg PO DAILY #90 tab s 07/12/25 torsemide 40 mg tablet 40 mg PO DAILY 5 days #5 tab s 08/01/25 Allergies Allergy/AdvReac Type Severity Reaction Status Date / Time penicillin G Allergy Unknown hives Verified 08/01/25 16:20 Review of Systems 2 Review of Systems: Pertinent review of systems as mentioned in HPI. All other system otherwise negative. [facility] Past Medical History [facility] Narrative: Medical history as mentioned in HPI Medical History (Updated 08/01/25 @ 19:55 by Lisa Rossi DO) Liver cirrhosis Ascites Essential hypertension Broken femur Obesity (BMI 30-39.9) Thrombocytopenia Splenomegaly Overweight (BMI 25.0-29.9) Depression Anxiety Insomnia History of substance abuse Vitamin D deficiency History of hepatitis C Mixed hyperlipidemia Asthma Diabetes mellitus Surgical History No pertinent past surgical history Family History Family History Father Liver failure Diabetes Hypertension CVD (cardiovascular disease) Mother Medical history unknown Social History Social History Housing: Apartment Alcohol intake: never Patient Tobacco Use Status: Former Tobacco user Smoked in Last 30 Days: Yes e-Cigarette/Vaping Use: Never Used Second Hand Smoke Exposure: Yes Use of substances other than those prescribed or required for medical reasons: No Advance Directives: No Advance Directives Information Provided: Yes Do you have a plan to hurt others: No Plan service: No Current occupational status: disabled Cognitive needs: No Hearing needs: No Vision needs: Yes Physical Exam ED Exam Exam: General: Pleasant, no distress, interacting appropriately Head: Normacephalic, atraumatic ENT: oral mucosa moist, neck supple, no tracheal deviation Cardiovascular: regular rate, regular rhythm, no murmurs, rubbing, gallops Respiratory: Diffuse rales on exam. Gastrointestinal: This did not abdomen with positive fluid wave, evaluate the patient's scrotal area he does have some scrotal edema. Patient does appear to be anasarca on exam Extremities: No limb pain or swelling, no calf tenderness Neurological: Awake and alert, no facial droop noted Skin: Warm and dry Psychiatric: Appropriate mood and thoughts Vital Signs: Vital Signs - 24 hr 08/01/25 16:17 08/01/25 18:31 08/01/25 18:53 Temperature 97.5 F 98.2 F Pulse Rate 89 78 Respiratory Rate 18 14 Blood Pressure 135/62 127/65 135/74 Pulse Oximetry 97 99 Oxygen Delivery Method Room Air Room Air BMI result Body Mass Index 31.5 Course Course Course Narrative: This is an RME: Additional HPI, ROS, PE not included below will be deferred to primary provider. RME assessment and note performed by: Macy Langley PA-C This is a 54-year-old male, with a past medical history of recent diagnosis of liver failure who presents emergency department with shortness for breath. Also reporting some abdominal distention and scrotal swelling. Recent diagnosis of liver failure and was referred to the liver transplant at [facility]. Patient appears jaundice, vital signs within normal limits, abdomen is distended, nontender. He has no current pain. Plan: Labs, EKG, chest x-ray, further ER evaluation needed. Medications Administered Discontinued Medications Generic Name Dose Route Start Last Admin Trade Name Freq PRN Reason Stop Dose Admin Furosemide 40 mg 08/01/25 18:14 08/01/25 18:53 Furosemide 40 Mg/4 Ml Vial IVPUSH 08/01/25 18:15 40 mg ONCE ONE Administration Protocol Albumin Human 50 mls @ 100 mls/hr 08/01/25 18:18 08/01/25 18:54 Kedbumin 25 % IV 08/01/25 18:47 100 mls/hr ONCE ONE Administration Magnesium Sulfate 2 gm in 50 mls @ 50 mls/hr 08/01/25 18:31 08/01/25 18:54 Magnesium Sulfate/H2o IV 08/01/25 19:30 50 mls/hr ONCE ONE Administration Medical Decision Making Medical Decision Making MDM Narrative: This is a 54-year-old male history of hepatitis-C, liver cirrhosis, diabetes, IV drug use presented hospital today for evaluation of shortness of breath. Clinically on exam I think patient has pulmonary edema his lung that is causing his shortness of breath. Patient does appear to be anasarca is. Patient has pitting edema in his lower abdomen, also edema in his scrotum. He also has pitting edema his lower. We will plan ambulate patient obtain pulse ox. Patient does have anemia hemoglobin is 7.6. This has been steadily dropping since 2021. Previous 1 was 8.1. The patient has no source of GI bleed. No source of bleeding. I did discuss with the patient about rectal exam. However he refuses rectal exam at this time. We will plan to give patient some IV Lasix for diuresis. A chest x-ray did show some signs of pulmonary edema. CBC shows mild neutropenia. Patient does not have a fever. Patient does have some hypomagnesemia this will be repleted. Patient has hypoalbuminemia we will plan to give patient some IV albumin. Patient states he was able to ambulate without any issues. No signs of hypoxia shortness of breath. Discussed option of admitting with the patient for his anasarca and swelling. However patient states he would prefer to go home. We will plan to increase his torsemide and discharged him we will outpatient follow up. Differential Diagnosis Differential Diagnoses: The differential diagnosis associated with the presentation includes Pulmonary edema, fluid overload, anasarca, anemia, symptomatic anemia Admission/Observation Consideration of admission/observation: Escalation of care including admission/observation considered Lab Data MDM Lab Attestation statement: I reviewed the patient's lab results. 08/01/25 17:23 08/01/25 17:23 Labs: Lab Results 08/01/25 08/01/25 08/01/25 Range/Units 17:23 18:24 18:29 WBC 1.6 L (4.8-10.8) X10*3/uL RBC 3.90 L (4.60-5.80) X10*6/uL Hgb 7.6 L (14.0-18.0) g/dl Hct 26.6 L (42.0-52.0) % MCV 68.2 L (80.0-98.0) fL MCH 19.5 L (27.0-33.0) pg MCHC 28.6 L (31.0-36.0) g/dl RDW 20.2 H (11.0-16.0) % Plt Count 38 L (160-400) X10*3/uL MPV Not Reportable Immature Gran % (Auto) 0.0 (0.0-0.4) % Neut % (Auto) 63.7 (45-73) % Lymph % (Auto) 20.4 (20-40) % [place] % (Auto) 10.8 (2-11) % Eos % (Auto) 3.2 (0-4) % Baso % (Auto) 1.9 (0-2) % Lymph # (Auto) 0.3 L (1.2-4.9) X10*3/uL [place] # (Auto) 0.2 (0.1-1.2) X10*3/uL Eos # (Auto) 0.1 (0.0-0.4) X10*3/uL Baso # (Auto) 0.0 (0.0-0.2) X10*3/uL Abs Immat Gran (auto) 0.00 (0.00-0.03) X10*3/uL Absolute Neuts (auto) 1.0 L (2.0-8.3) x10*3/uL Absolute Nucleated RBC 0.000 (0.0-0.012) X10*3/uL Nucleated RBC % (auto) 0.0 (0.0-0.2) /100WBC Smear Tech's Comments VERIFIED PT 20.2 H (10.9-12.4) SEC INR 1.8 H (0.9-1.1) Sodium 137 (135-145) mmol/L Potassium 4.2 (3.3-5.1) mmol/L Chloride 104 (96-108) mmol/L Carbon Dioxide 28 (22-29) mmol/L Anion Gap 9 L (12-20) BUN 14 (9-16) mg/dL Creatinine 0.57 (0.5-1.4) mg/dL Estim Creat Clear Calc 159.6 Estimated GFR > 60 Random Glucose 265 H (60-115) mg/dL Calcium 7.9 L (8.4-10.2) mg/dL Magnesium 1.5 L (1.6-2.6) mg/dL Total Bilirubin 1.5 H (0.0-1.0) mg/dL Direct Bilirubin 0.7 H (0.0-0.5) mg/dL AST 29 (5-37) U/L ALT 12 (0-40) U/L Alkaline Phosphatase 106 (39-117) U/L NT-Pro-B Natriuret Pep 133.5 (<300) pg/mL Total Protein 6.2 L (6.5-8.0) g/dL Albumin 2.7 L (3.5-5.0) g/dL Lipase 9 (8-78) U/L Blood Type O Positive Antibody Screen NEGATIVE Independent Interpretation I performed an independent interpretation of an: Plain X-Ray Radiology Impression Discussion of test interpretation with radiology: I have reviewed the radiologist's reading. Chronic Conditions Cirrhosis Discharge Plan Discharge Clinical Impression: Cirrhosis Ascites Qualifiers: Ascites type: due to alcoholic cirrhosis Qualified Code(s): K70.31 - Alcoholic cirrhosis of liver with ascites Fluid overload Qualifiers: Hypervolemia type: unspecified Qualified Code(s): E87.70 - Fluid overload, unspecified Patient Disposition: Home, Self-Care Instructions: Cirrhosis of the Liver (ED), Ascites (ED) Additional Instructions: Follow up with your PCP. Take the 40mg on top of your 20mg dose for 5 days. Call to schedule appointment for IR for evaluation of drainage of ascites. Return to ED if you are short of breath Prescriptions: New torsemide 40 mg tablet 40 mg PO DAILY 5 Days Qty: 5 0RF No Action blood sugar diagnostic [FreeStyle Lite Strips] Strip 1 strip miscellaneous TID Qty: 100 11RF (DME) pen needle, diabetic 32 gauge x 5/32 needle See Rx Instructions subcut .MEDSUPPLY Qty: 100 5RF Rx Instructions: As directed (DME) blood-glucose meter [FreeStyle Lite Meter] Kit See Rx Instructions .Route Qty: 1 0RF Rx Instructions: As directed - test 3 times a day before meals to dose Humalog (DME) FreeStyle Lite Strips Strip See Rx Instructions .Route Qty: 100 5RF Rx Instructions: As directed - test 3 times a day before meals atorvastatin 10 mg tablet 10 mg PO BEDTIME 90 Days Qty: 90 1RF losartan 50 mg tablet 50 mg PO DAILY 90 Days Qty: 90 1RF lorazepam 0.5 mg tablet 0.5 mg PO BID PRN (Reason: anxiety) 30 Days Qty: 30 0RF quetiapine 200 mg tablet 200 mg PO BEDTIME Qty: 30 1RF furosemide [Lasix] 40 mg tablet 40 mg PO DAILY Qty: 90 0RF (DME) lancets 28 gauge misc See Rx Instructions topical TID Qty: 100 Rx Instructions: As directed buprenorphine-naloxone 8-2 mg film 2 film sublingual Q24H PRN (DME) lancets [FreeStyle Lancets] 28 gauge misc See Rx Instructions .ROUTE .MEDSUPPLY Qty: 100 5RF Rx Instructions: As directed - test 3 times a day before meals insulin glargine 100 unit/mL (3 mL) insulin pen 50 unit subcut QPM Qty: 15 5RF albuterol sulfate [Ventolin HFA] 90 mcg/actuation HFA aerosol inhaler 2 puff PO QID PRN (Reason: shortness of breath or wheezing) 30 Days Qty: 8.5 5RF insulin aspart U-100 [Novolog FlexPen U-100 Insulin] 100 unit/mL (3 mL) insulin pen See Rx Instructions subcut TID 30 Days Qty: 15 5RF Rx Instructions: Inject up to 10 to 12 units 3 times a day with meals PER SLIDING SCALE subcut 3 times a day; doxycycline hyclate 100 mg capsule 100 mg PO BID 7 Days Qty: 14 0RF Referrals: Daron Rosas MD [Physician, Interventional Radiology] Clinical Impression: Ascites Print Language: Emirati
--- NOTE | 2025-08-01 16:22 | ECG_ITS ---
Test Reason : SOB Blood Pressure : */* mmHG Vent. Rate : 84 BPM Atrial Rate : 84 BPM P-R Int : 142 ms QRS Dur : 90 ms QT Int : 408 ms P-R-T Axes : 47 3 -4 degrees QTcB Int : 482 ms Normal sinus rhythm Prolonged QT Abnormal ECG When compared with ECG of 12-Jul-2024 14:42, Nonspecific T wave abnormality now evident in Anterior leads Referred By: Macy Langley Electronically Signed By: ROMI SULTANA
--- OUTSIDE RECORDS SUMMARY | 2025-08-01 17:29 | XMS_ITS | Clinical Summary ---
Author Organization [facility] Address [address] [place] [address] Phone Care Team Providers Care Chief Nursing Executive Name Role Phone Jony Hernandez MD Primary [...] activated inhaler Inhale into the lungs. Active buprenorphine-nalo xone (SUBOXONE) 8-[address] mg [address] film Place 1.5 Each under the tongue daily. Active blood-glucose meter misc Use to check BS daily 4 Active blood sugar diagnostic (FreeStyle Lite Strips) test strip Use ot check BS 4 Active FREESTYLE LANCETS MISC Use to check BS daily 4 Active glucagon 1 mg/0.2 mL auto-injector Inject 1 Dose into the skin as needed for Other (low blood sugar). Active FreeStyle Lite Meter monitoring kitIndications:Macy betes mellitus due to underlying condition with hyperglycemia (CMS/HCC V24, CMS/HCC V28) USE TO CHECK BLOOD SUGAR DAILY 1 kit 5 Active atorvastatin (LIPITOR) 10 mg tablet Take 1 tablet (10 mg total) by mouth at bedtime. 05/24/202 5 Active spironolactone (ALDACTONE) 100 mg tablet Take 1 tablet (100 mg total) by mouth 1 (one) time each day. 5 Active Ventolin HFA 90 mcg/actuation inhaler [...] 22 units 15 mL 11 5 Active metFORMIN XR (GLUCOPHAGE-XR) 500 mg 24 hr tabletIndications: Diabetes mellitus due to underlying condition with hyperglycemia ([facility] V24, [facility] V28) Take 2 tablets (1,000 mg total) by mouth 2 (two) times a day before meals. 180 tablet 1 5 Active blood-glucose sensor (FreeStyle Nolan 3 Plus Sensor) deviceIndications: Diabetes mellitus due to underlying condition with hyperglycemia ([facility] V24, [facility] V28) Change sensor every 15 days. 6 each 3 5 Active FreeStyle Nolan 3 Free Soil miscIndications:Di abetes mellitus due to underlying condition with hyperglycemia ([facility] V24, [facility] V28) USE DIRECTED 1 each 5 Active Active Problems Problem Noted Date Diagnosed Date Anxiety state 05/16/2024 Depressive disorder 05/16/2024 Diabetes mellitus type 2, co ntrolled, with complications ([facility] [place], [facility] V28) 05/16/2024 Essential hypertension 05/16/2024 Mixed hyperlipidemia 05/16/2024 Insomnia 05/16/2024 History of substance abuse ([facility] V24, [facility] V28) 05/16/2024 Encounters Date Type Department Care Team Description 05/11/2025 Telephone Endocrinology - [address] [phone] Latosha Astorga PA 05/10/2025 3:30 PM EDT Office Visit Endocrinology - [address] [id number] [place] [phone] Latosha Astorga PA Type 2 diabetes mellitus with other specified complication, with long-term current use of insulin ([facility] V24, [facility] V28) (Primary Dx) from Last 3 Months Medical History Medical History Date Comments Anxiety state DX:Anxiety state Depressive disorder DX:Depressiv e disorder Diabetes mellitus type 2, co ntrolled, with complications ([facility] V24, [facility] V28) DX:Diabetes mellitus type 2, controlled, with complications (HCC) Thrombocytopenia ([facility] V24) D X:Thrombocytopenia (HCC) Insomnia DX:Insomnia History of hepatitis C DX:Histor y of hepatitis C Mixed hyperlipidemia DX:Mixed hy perlipidemia History of substance abuse ( [facility] V24, [facility] V28) DX:History of substance abus e (HCC) [...] Care Team (Late st Contact Info) Description 08/15/2025 3:00 PM EDT Office Visit Endocrinology - [place] [address] [place] [phone] Latosha Astorga PA [address] [place] [address] Health Maintenance Due Date Last Done Comments Diabetes: Annual Foot Exam 1980 Diabetes: Annual Retina Eye Exam 1980 Hepatitis B Vaccines (1 of 3 - 19+ 3-dose series) 1989 Pneumococcal Vaccine: 50+ Years (1 of 2 - PCV) 1989 Zoster Vaccines (1 of 2) 2020 Colorectal Cancer Screening: Colonoscopy 05/26/2024 HIV Screening 05/26/2024 Hepatitis C Screening 05/26/2024 Social Influencers of Health Screening 05/26/2024 Depression Screening 11/01/2024 05/16/2024 COVID-19 Vaccine ( season) 2025 Influenza Vaccine (#1) 2025 Diabetes: Blood Sugar [...] complication, with long-term current use of insulin ([facility] V24, [facility] V28) HEMOGLOBIN A1C Routine 05/10/2025 4:23 PM EDT Type 2 diabetes mellitus with other specified complication, with long-term current use of insulin ([facility] V24, [facility] V28) BASIC METABOLIC PANEL Routine 05/10/2025 4:23 PM EDT Type 2 diabetes mellitus with other specified complication, with long-term current use of insulin ([facility] V24, [facility] V28) LIPID PANEL WITH REFLEX TO DIRECT LDL Routine 05/10/2025 4:23 PM EDT Type 2 diabetes mellitus with other specified complication, with long-term current use of insulin ([facility] V24, [facility] V28) MICROALBUMIN CREATININE URINE RATIO Routine 05/10/2025 4:23 PM EDT Type 2 diabetes mellitus with other specified complication, with long-term current use of insulin ([facility] V24, [facility] V28) DEPRESSION SCREENING Routine 05/16/2024 from Last 3 Months or Most Recently Relevant to Health Maintenance Results * POC glucose manually resulted (05/11/2025 9:47 AM EDT) [facility] Glucose POC 310 mg/dL Blood Capillary blood specimen / Unknown 05/11/2025 9:47 AM EDT us Latosha HOLLINS POINT OF CARE TEST ENTER/ED IT ORDERABLES Final Result * Lipid panel with reflex to direct LDL (05/10/2025 4:23 PM EDT) [facility] Cholesterol 81 0 - 200 mg/dL LAB CHEMISTRY METHOD 05/10/2025 7:47 PM EDT [facility] Triglycerides 73 0 - 150 mg/dL LAB CHEMISTRY METHOD 05/10/2025 7:47 PM EDT [facility] HDL 44 >=40 mg/dL LAB CHEMISTRY METHOD 05/10/2025 7:47 PM EDT [facility] LDL Calculated 22 0 - 100 mg/dL LAB CHEMISTRY METHOD 05/10/2025 7:47 PM [facility] VLDL Cholesterol Luis Armando 14.6 mg/dL LAB CHEMISTRY METHOD 05/10/2025 7:47 PM [facility] Non HDL Chol. (LDL+VLDL) 37 <145 mg/dL LAB CHEMISTRY METHOD 05/10/2025 7:47 PM EDT [facility] Chol/HDL Ratio 1.8 0.0 - 4.4 LAB CHEMISTRY METHOD 05/10/2025 7:47 PM [facility] Blood Venous blood specimen / Unknown Venipuncture / Unknown 05/10/2025 4:23 PM EDT 05/10/2025 4:23 PM EDT us Latosha HOLLINS LAB BLOOD ORDERABLES Final Result Performing Organization Address City/[facility]/ZIP Co de Phone Number [facility] [address] [place] [address], [place] [phone] * Microalbumin creatinine urine ratio (05/10/2025 4:23 PM EDT) Creatinine, Urine 213.0 mg/dL LAB CHEMISTRY METHOD 05/10/2025 7:46 PM EDT [facility] Microalb, Ur 14.1 0.0 - 29.0 mg/L LAB CHEMISTRY METHOD 05/10/2025 7:46 PM EDT [facility] Microalb/Creat Ratio 7 <30 mg/g creat LAB CHEMISTRY METHOD 05/10/2025 7:46 PM EDT [facility] Urine Urine specimen from urethra / Unknown Non-blood Collection / Unknown 05/10/2025 4:23 PM EDT 05/10/2025 4:23 PM EDT us Latosha HOLLINS LAB URINE ORDERABLES Final Result Performing Organization Address [facility]/ZIP Co de Phone Number [facility] [address] [place] [address], [place] [phone] * (ABNORMAL) Hemoglobin A1c (05/10/2025 4:23 PM EDT) Hemoglobin A1C 9.9(H) <6.5 % LAB CHEMISTRY METHOD 05/10/2025 9:52 PM EDT [facility] Mean Bld Glu Estim. 237 mg/dL LAB CHEMISTRY METHOD 05/10/2025 9:52 PM EDT [facility] Blood Venous blood specimen / Unknown Venipuncture / Unknown 05/10/2025 4:23 PM EDT 05/10/2025 4:23 PM EDT us Latosha HOLLINS LAB BLOOD ORDERABLES Final Result [facility] [address] [place] [address], * (ABNORMAL) Basic metabolic panel (05/10/2025 4:23 PM EDT) Sodium 136 133 - 145 mmol/L LAB CHEMISTRY METHOD [facility] Potassium 3.9 3.5 - 5.5 mmol/L LAB CHEMISTRY METHOD 05/10/2025 7:43 PM [facility] Chloride 103 96 - 110 mmol/L LAB CHEMISTRY METHOD 05/10/2025 7:43 PM [facility] CO2 29 21 - 32 mmol/L LAB CHEMISTRY METHOD 05/10/2025 7:43 PM [facility] Anion Gap 4 3 - 11 LAB CHEMISTRY METHOD 05/10/2025 7:43 PM [facility] Glucose 279(H) 70 - 100 mg/dL LAB CHEMISTRY METHOD 05/10/2025 7:43 PM [facility] BUN 13 5 - 25 mg/dL LAB CHEMISTRY METHOD 05/10/2025 7:43 PM [facility] Creatinine 0.58(L) 0.70 - 1.30 mg/dL LAB CHEMISTRY METHOD 05/10/2025 7:43 PM [facility] eGFR 116 >=60 mL/min/1. 73m2 LAB CHEMISTRY METHOD 05/10/2025 7:43 PM [facility] Comment:Calculation based on the Chronic Kidney Disease Epidemiology Collaboration (CKD-EPI) equation refit without adjustment for race. BUN/Creatinine Ratio 22.4 LAB CHEMISTRY METHOD 05/10/2025 7:43 PM [facility] Calcium 8.3(L) 8.5 - 10.5 mg/dL LAB CHEMISTRY METHOD 05/10/2025 7:43 PM [facility] Blood Venous blood specimen / Unknown Venipuncture / Unknown 05/10/2025 4:23 PM EDT 05/10/2025 4:23 PM EDT us Latosha HOLLINS LAB BLOOD ORDERABLES Final Result [facility] [address] [place] [address], * Depression Screening (05/16/2024) Depression Screening abstracted us Historical Provider HEALTH MAINTENANCE Final Result from Last 3 Months or Most Recently Relevant to Health Maintenance Insurance [facility] [employer] Care Teams Chief Nursing Executive Relationship Specialty Start Date End Date Jony Hernandez MD [address] [place] [address] Dr [address] [place], [place] PCP - General 12/27/23
[2025-08-01 17:30] LABS: Hemoglobin 7.6 g/dl (14.0-18.0); Imm Gran Abs Auto 0.00 X10*3/uL (0.00-0.03); Imm Gran Pct Auto 0.0 % (0.0-0.4); MANUAL DIFF FLAG SCAN; NRBC Abs Auto 0.000 X10*3/uL (0.0-0.012); NRBC Pct Auto 0.0 /100WBC (0.0-0.2); SCAN SMEAR FLAG 1
[2025-08-01 17:31] LABS: Hematocrit 26.6 % (42.0-52.0); Lymphocytes Absolute Auto 0.3 X10*3/uL (1.2-4.9); Mean Corpuscular HGB Conc 28.6 g/dl (31.0-36.0); Mean Corpuscular Hemoglobin 19.5 pg (27.0-33.0); Mean Corpuscular Volume 68.2 fL (80.0-98.0); Red Blood Count 3.90 X10*6/uL (4.60-5.80)
[2025-08-01 17:40] LABS: PLT ABN DIST 1; Platelet Count 38 X10*3/uL (160-400); White Blood Count 1.6 X10*3/uL (4.8-10.8)
[2025-08-01 17:44] LABS: Alanine Aminotransferase 12 U/L (0-40); Albumin Level 2.7 g/dL (3.5-5.0); Alkaline Phosphatase 106 U/L (39-117); Anion Gap 9 (12-20); Aspartate Amino Transferase 29 U/L (5-37); Blood Urea Nitrogen 14 mg/dL (9-16); Calcium 7.9 mg/dL (8.4-10.2); Carbon Dioxide 28 mmol/L (22-29); Chloride 104 mmol/L (96-108); Creatinine Clr Calc Pharmacy 159.6; Estimated Glomerular Filt Rate > 60; Lipase 9 U/L (8-78); Magnesium 1.5 mg/dL (1.6-2.6); Potassium 4.2 mmol/L (3.3-5.1); Sodium 137 mmol/L (135-145); Total Protein 6.2 g/dL (6.5-8.0)
[2025-08-01 17:52] LABS: NT Pro B Type Natriuretic Pept 133.5 pg/mL (<300)
[2025-08-01 18:31] VITALS: BP 127/65; PULSE 78; RESP 14; TEMP 36.8; O2SAT 99
--- NOTE | 2025-08-01 18:39 | MHC.EDTECH ---
PATIENT AMBULATED WITH [facility].PATIENTS O2 PRIOR WAS 100 ,PULSE RATE 81 AND RESPIRATIONS 14.AFTER AMBULATION TRIAL PATIENTS O2 WAS 96 ,PULSE RATE 93 AND RESPIRATIONS 16
[2025-08-01 18:49] LABS: INTERNATIONAL NORM RATIO 1.8 (0.9-1.1); Prothrombin Time 20.2 SEC (10.9-12.4)
[2025-08-01 18:53] VITALS: BP 135/74
[2025-08-01] MEDS: Furosemide 40 MG/4 ML VIAL IVPUSH (18:53)
[2025-08-01] MEDS: Magnesium Sulfate/H2O 2 GM/50 ML PIGGYBACK IV (18:54)
[2025-08-01] MEDS: Albumin Human 25 % 50 ML 100 ML IV (18:54)
[2025-08-01 19:59] VITALS: BP 131/76; PULSE 80; RESP 12; O2SAT 100
[2025-08-01 20:16] VITALS: BP 131/76; PULSE 80; RESP 12; TEMP 36.8; O2SAT 100
== END 2025-08-01 20:16 | disposition home or self-care (01) ==
PROVIDERS: Physician Assistant Medical; Emergency Provider Student in an Organized Health Care Education/Training Program; PCP Internal Medicine
DX: K70.31 Alcoholic cirrhosis of liver with ascites (principal); E87.70 Fluid overload, unspecified; R06.02 Shortness of breath; R05.9 Cough, unspecified; E11.9 Type 2 diabetes mellitus without complications
CPT/HCPCS: 36415; 71046; 80048; 80076; 83690; 83735; 83880; 85025; 85610; 86850; 86900; 86901; 93005; 96365; 96368; 96375; 99284; 99285; J1938; J3475; P9047

== ENCOUNTER → 2025-08-01 16:22 | Outpatient (BNV) | payer OTHER, SELFPAY | PROVIDERS: Emergency Provider Student in an Organized Health Care Education/Training Program; PCP Internal Medicine; Visit Provider Radiology Diagnostic Radiology | DX: I51.7 Cardiomegaly (principal); R91.8 Other nonspecific abnormal finding of lung field | CPT/HCPCS: 71046 ==

== ENCOUNTER → 2025-08-01 16:22 | Outpatient (BNV) | payer OTHER, SELFPAY | PROVIDERS: Emergency Provider Student in an Organized Health Care Education/Training Program; PCP Internal Medicine; Visit Provider Internal Medicine | DX: R94.31 Abnormal electrocardiogram [ECG] [EKG] (principal); R06.02 Shortness of breath | CPT/HCPCS: 93010 ==

== ENCOUNTER 2025-10-10 09:04 | Outpatient (REF) | payer OTHER, SELFPAY ==
[2025-10-10 10:31] LABS: Hematocrit 26.8 % (42.0-52.0); Hemoglobin 7.6 g/dl (14.0-18.0); Imm Gran Abs Auto 0.00 X10*3/uL (0.00-0.03); Imm Gran Pct Auto 0.0 % (0.0-0.4); Lymphocytes Absolute Auto 0.3 X10*3/uL (1.2-4.9); MANUAL DIFF FLAG SCAN; Mean Corpuscular HGB Conc 28.4 g/dl (31.0-36.0); Mean Corpuscular Hemoglobin 19.6 pg (27.0-33.0); Mean Corpuscular Volume 69.3 fL (80.0-98.0); NRBC Abs Auto 0.000 X10*3/uL (0.0-0.012); NRBC Pct Auto 0.0 /100WBC (0.0-0.2); Red Blood Count 3.87 X10*6/uL (4.60-5.80); SCAN SMEAR FLAG 1
[2025-10-10 10:33] LABS: Platelet Count 51 X10*3/uL (160-400); White Blood Count 1.5 X10*3/uL (4.8-10.8)
[2025-10-10 11:00] LABS: Appearance Urine Clear; Glucose Urine UA >=1000 mg/dL (Negative); PH 7.5 (5.0-9.0); Specific Gravity - Urine >= 1.030 (1.005-1.025); UMIC TRIGGER UACC YES
[2025-10-10 11:24] LABS: Alanine Aminotransferase 17 U/L (0-40); Albumin Level 3.0 g/dL (3.5-5.0); Alkaline Phosphatase 110 U/L (39-117); Anion Gap 9 (12-20); Aspartate Amino Transferase 26 U/L (5-37); Blood Urea Nitrogen 11 mg/dL (9-16); Calcium 8.2 mg/dL (8.4-10.2); Carbon Dioxide 31 mmol/L (22-29); Chloride 100 mmol/L (96-108); Cholesterol 82 mg/dL (<200); Estimated Glomerular Filt Rate > 60; HDL Cholesterol 36 mg/dL (>40); Potassium 3.6 mmol/L (3.3-5.1); Sodium 136 mmol/L (135-145); Total Protein 6.5 g/dL (6.5-8.0); Triglycerides 72 mg/dL (<150)
[2025-10-10 11:49] LABS: Folate 10.6 ng/mL (> or = 4.0); Vitamin B12 725 pg/mL (200-900)
== END 2025-10-10 09:05 | disposition home or self-care (01) ==
LOC: HO.LAB 09:04
PROVIDERS: PCP Internal Medicine; Visit Provider Internal Medicine
DX: E11.9 Type 2 diabetes mellitus without complications (principal); E53.8 Deficiency of other specified B group vitamins; D64.9 Anemia, unspecified; E78.00 Pure hypercholesterolemia, unspecified; E55.9 Vitamin D deficiency, unspecified
CPT/HCPCS: 36415; 80053; 80061; 81001; 81003; 82043; 82306; 82570; 82607; 82746; 83036; 84443; 85025

== ENCOUNTER 2025-10-12 15:37 | Outpatient (AMB) | payer OTHER, SELFPAY ==
[2025-10-12 15:47] VITALS: BP 110/68; PULSE 88; O2SAT 97; BMI 28.0
--- NOTE | 2025-10-12 15:47 | A.OFFPC_ITS ---
Vital Signs 10/12/25 15:47 Height 5 ft 7 in Weight 178 lb 8 oz BMI 28.0 BP 110/68 Blood Pressure Location Lt brachial Position Sitting Pulse 88 Pulse Source Pulse Oximeter Pulse Oximetry (%) 97 Oxygen Delivery Method Room Air Intake Visit Reasons: 4 mo follow up Endodontics Dentist Required: No Accompanied by: Self / Same As Patient Allergies penicillin G Allergy (Unknown, Verified 10/12/25 15:59) hives Medication List - Last Reconciled 10/12/25 by Jony Hernandez MD albuterol sulfate 90 mcg/actuation (Ventolin HFA) 2 puffs PO QID PRN 30 days atorvastatin 10 mg PO BEDTIME 90 days blood sugar diagnostic (FreeStyle Lite Strips) 1 strip miscellaneous TID blood sugar diagnostic (FreeStyle Lite Strips) As directed - test 3 times a day before meals blood-glucose meter (FreeStyle Lite Meter kit) As directed - test 3 times a day before meals to dose Humalog buprenorphine-naloxone 8-2 mg 2 film sublingual Q24H PRN doxycycline hyclate 100 mg PO BID 7 days furosemide (Lasix) 40 mg PO DAILY insulin aspart U-100 (Novolog FlexPen U-100 Insulin aspart) Inject up to 10 to 1 2 units 3 times a day with meals PER SLIDING SCALE subcut 3 times a day; 30 days insulin glargine 50 units (0.5 mL) subcut QPM lancets As directed lancets (FreeStyle Lancets) As directed - test 3 times a day before meals lorazepam 0.5 mg PO BID PRN 30 days losartan 50 mg PO DAILY 90 days pen needle, diabetic As directed quetiapine 200 mg PO BEDTIME torsemide 40 mg PO DAILY 5 days Tobacco use date assessed: 10/12/25 Dental Screening Dental Screen Date: 10/12/25 Did you have a dental visit in the last 12 months?: No Did you have a dental problem in the last 6 months where you did not have access to dental care?: No Was dental information given to patient?: No HPI 4 mo follow up HPI Details Patient comes in today for his follow-up visit States that he has been feeling fatigued often for a while now He [place] [facility] [place] for increasing dyspnea Work ups done revealed no acute findings other than hypomagnesemia - he does have chronic anemia, neutropenia and thrombocytopenia related to his chronic liver disease and cirrhosis Chest x-rays revealed some signs of pulmonary edema and he was diuresed and subsequently discharged home when his symptoms improved with Tx as he declined offer for admission to the hospital He is currently still undergoing evaluation for liver transplant through [facility] in [place] and his states that they are just waiting on patient to sign some papers for permission He denies any headaches or dizziness Denies any chest pains; states that he still has increased SOB with exertion but this has not gotten any worse than before No nausea/vomiting, no abdominal pain No change in bowel habits noted He had his follow up labs done a couple of days ago - to discuss his results [facility] Medical History Liver cirrhosis Ascites Essential hypertension Broken femur Obesity (BMI 30-39.9) Thrombocytopenia Splenomegaly Overweight (BMI 25.0-29.9) Depression Anxiety Insomnia History of substance abuse Vitamin D deficiency History of hepatitis C Mixed hyperlipidemia Asthma Diabetes mellitus Surgical History No pertinent past surgical history Family History Father Liver failure Diabetes Hypertension CVD (cardiovascular disease) Mother Medical history unknown Social History Housing: Apartment Alcohol intake: never Patient Tobacco Use Status: Former Tobacco user e-Cigarette/Vaping Use: Never Used Second Hand Smoke Exposure: Yes service: No Current occupational status: disabled Cognitive needs: No Hearing needs: No Vision needs: Yes Questionnaire PHQ-9 Over the last 2 weeks, how often have you been bothered by any of the following problems? 1. Little interest or pleasure in doing things: several days 2. Feeling down, depressed, or hopeless: not at all 3. Trouble falling or staying asleep, or sleeping too much: not at all 4. Feeling tired or having little energy: not at all 5. Poor appetite or overeating: several days 6. Feeling bad about yourself - or that you are a failure or have let yourself or your family down: not at all 7. Trouble concentrating on things, such as reading the newspaper or watching television: not at all 8. Moving or speaking so slowly that other people could have noticed. Or the opposite - being so fidgety or restless that you have been moving around a lot more than usual: not at all 9. Thoughts that you would be better off or of hurting yourself in some way: not at all Total score: 2 Depression Screening Interpretation: Negative Depression Screening Done: Yes 36570 - PHQ-9 Billing: Yes Source: Developed by Drs. Freddie Chau, Maritza Wright, Stephen Wisdom and colleagues, with an educational mt from [employer]. Thrive Questionnaire Date Thrive assessed: 10/12/25 I am a: Patient What is your living situation today?: I have a steady place to live Within the past 12 months, did the food you bought not last and you didn't have the money to get more?: Often true Within the past 12 months, did you worry whether your food would run out before you got money to buy more?: Often true Do you have trouble paying for medicines?: No Do you have trouble getting transportation to medical appointments?: No Do you have trouble paying your heating and electricity bill?: No Do you have trouble taking care of your child, family member or friend?: No Do you have trouble with day-to-day activities such as bathing, preparing meals, shopping, managing finances, etc.?: No Are you currently unemployed and looking for a job?: No Are you interested in more education?: No Please select the resources that you would like help with: None Currently or been in a relationship where the following occur: I choose not to answer THRIVE Score: 2 AUDIT C Alcohol Use Questionnaire (AUDIT-C) 1. How often do you have a drink containing alcohol?: Never 3. How often do you have six or more drinks on one occasion?: Never Total Score: 0 Score Reviewed/Action Taken: Yes SVITLANA-7 AMB Questionnaire SVITLANA-7 Date SVITLANA - 7 assessed: 10/12/25 Feeling nervous, anxious, or on edge: 0 = Not at all Not being able to stop or control worryin = Not at all Worrying too much about different things: 0 = Not at all Trouble relaxin = Not at all Being so restless that it is hard to sit still: 0 = Not at all Becoming easily annoyed or irritable: 0 = Not at all Feeling afraid as if something awful might happen: 0 = Not at all Total SVITLANA-7 score (0-4 normal; 5-9 mild; 10-14 moderate; 15-21 severe): 0 Source: Developed by Drs. Freddie Chau, Maritza Wright, Stephen Wisdom and colleagues, with an educational mt from [employer]. Review of Systems Const Denies chills, Reports fatigue, Denies fever(s) and Denies headache(s) ENT Denies dysphagia, Denies dizziness, Denies otalgia, Denies headache(s), Denies neck pain, Denies odynophagia and Denies sore throat Card Denies chest pain, Denies palpitations and Reports dyspnea on exertion Resp Denies chest congestion, Denies cough, Reports dyspnea on exertion and Denies wheezing GI Denies abdominal pain, Reports bloating, Denies constipation, Denies dysphagia, Denies heartburn, Denies diarrhea, Denies nausea, Denies odynophagia and Denies vomiting Denies difficulty urinating, Denies dysuria, Reports nocturia and Reports urinary frequency Musc Denies back pain, Denies arthralgias and Denies neck pain Skin/Breast Denies rash Neuro Denies dizziness and Denies headache(s) Psych Reports anxiety Endo Reports fatigue and Denies palpitations Aller/Immun Denies wheezing Physical exam (Primary Care) Vital Signs: Last Vital Signs Pulse 88 10/12/25 15:47 BP 110/68 10/12/25 15:47 Pulse Ox 97 10/12/25 15:47 Oxygen Delivery Method Room Air 10/12/25 15:47 BMI result Body Mass Index 28.0 Tobacco/Smoking Status: Tobacco use Status Tobacco use date assessed 10/12/25 10/12/25 15:49 Patient Tobacco Use Status Former Tobacco user 10/12/25 15:49 e-Cigarette/Vaping Use Never Used 10/12/25 15:49 PHQ-9: PHQ-9 Score PHQ-9: Total score 2 10/12/25 16:24 Depression Screening Interpretation: Negative Thrive Assessment: Date of Thrive Assessment Date Thrive assessed 10/12/25 10/12/25 15:49 Currently or been in a relationship where the following occur: I choose not to answer Const General: no acute distress and alert HENMT Ears: TM's normal bilaterally and EAC's normal Throat: Yes posterior oropharynx normal and Yes tonsils normal (no TP congestion noted) Neck Neck: Yes supple and No lymphadenopathy Thyroid: Thyroid normal Resp Auscultation: clear to auscultation bilaterally, no rales and no wheezes Cardio Rate: regular rate Rhythm: regular rhythm Heart sounds: no murmurs GI Palpation (GI): Soft to palpation, nontender and Ascites present Auscultation: normal bowel sounds General: Yes no CVA tenderness Back/Spine/Pelvis Back: no CVA tenderness Thoracic/Lumbar Spine: No lumbar spinal tenderness Skin Rashes: no rashes Extrem General: No clubbing, No cyanosis and Yes edema (1+ bipedal edema) Results Reviewed Results Reviewed: Laboratory Tests 09/15/24 12/26/24 10/10/25 12:56 15:15 09:14 WBC Hgb Hct Plt Count Sodium Potassium Creatinine Estimated GFR Fasting Glucose Hgb A1c (Clinic) 10.3 H 9.5 H Hemoglobin A1c % Calcium AST ALT Triglycerides Cholesterol LDL Cholesterol, Calc HDL Cholesterol Vitamin B12 25-OH Vitamin D Total TSH Ur Specific [place] >= 1.030 H Urine Protein Negative Urine Glucose (UA) >=1000 H Urine Blood Negative Urine Nitrite Negative Ur Leukocyte Esterase Negative 10/10/25 09:22 WBC 1.5 L Hgb 7.6 L Hct 26.8 L Plt Count 51 L D Sodium 136 Potassium 3.6 Creatinine 0.60 Estimated GFR > 60 Fasting Glucose 301 H Hgb A1c (Clinic) Hemoglobin A1c % 12.4 H Calcium 8.2 L AST 26 ALT 17 Triglycerides 72 Cholesterol 82 LDL Cholesterol, Calc 32 HDL Cholesterol 36 L Vitamin B12 725 25-OH Vitamin D Total 10.4 L TSH 1.82 Ur Specific [place] Urine Protein Urine Glucose (UA) Urine Blood Urine Nitrite Ur Leukocyte Esterase Coding Level of Care Code Est Pt Level 4 (61967) Diagnoses Uncontrolled type 2 diabetes mellitus with hyperglycemia E11.65 Diabetes mellitus type: type 2 Mixed hyperlipidemia E78.2 Essential hypertension I10 Moderate persistent asthma without complication J45.40 Asthma severity: moderate Asthma persistence: persistent Asthma complication type: uncomplicated Vitamin D deficiency E55.9 Splenomegaly R16.1 Thrombocytopenia D69.6 Cirrhosis of liver without ascites, unspecified hepatic cirrhosis type K74.60 Hepatic cirrhosis type: unspecified hepatic cirrhosis Ascites presence: without ascites History of hepatitis C Z86.19 History of substance abuse F19.11 Insomnia, unspecified type G47.00 Insomnia type: unspecified Anxiety F41.9 Episode of recurrent major depressive disorder, unspecified depression episode severity F33.9 Depression Type: major depressive disorder Major depression recurrence: recurrent Active/Remission status: currently active Major depression episode severity: unspecified Overweight (BMI 25.0-29.9) E66.3 Additional Codes PHQ-9 - 55035 - PHQ-9 Billing: Yes ([id number]) Assessment & Plan Assessment & Plan (1) Uncontrolled diabetes mellitus with hyperglycemia: Code(s): E11.65 - Type 2 diabetes mellitus with hyperglycemia Category: Medical Qualifiers: Diabetes mellitus type: type 2 Qualified Code(s): E11.65 - Type 2 diabetes mellitus with hyperglycemia Plan: His HgbA1c is now at 12.4% on his labs done a couple of days ago (his in-office HgbA1c was previously at 8.3% back in June 2025) - goal is at least <7.0% Reinforced diabetic diet Continue Lantus 50 units Q HS and Novolog 10 to 12 units TID with meals per sliding scale Continue Losartan 50 mg QD for renoprotection He was seeing Dr. Jimenez at [facility] in the past and then was switched over to Dr. Devon Gloria and more recently, Dr. Latosha Astorga at [facility] for follow up and management of his diabetes We have not received any records from [facility] at all so we do not know how compliant patient is with his diabetes follow up nor do we know what his endocrinologists' plans are at this time - will try to get a copy of his OV notes sent over for review JOSE Have discussed with patient the option of switching him over to [facility] [place] for better coordination of care - patient states that he will think about this and get back to us if he decides to switch over (2) Mixed hyperlipidemia: Code(s): E78.2 - Mixed hyperlipidemia Category: Medical Plan: Results of his labs done a couple of days ago reviewed and discussed with patient - his cholesterol levels are all at goal Reinforced low cholesterol diet Continue Fenofibrate 145 mg QD and Atorvastatin 10 mg QD Will have patient recheck his labs and fasting lipids in 3 months for follow up (3) Essential hypertension: Code(s): I10 - Essential (primary) hypertension Category: Medical Plan: Reinforced low-sodium diet - goal is systolic BP of 120 mm or less Continue Losartan 50 mg QD (4) Asthma: Code(s): J45.909 - Unspecified asthma, uncomplicated Category: Medical Qualifiers: Asthma severity: moderate Asthma persistence: persistent Asthma complication type: uncomplicated Qualified Code(s): J45.40 - Moderate persistent asthma, uncomplicated Plan: Controlled Continue Flovent HFA 110 mcg 1 inhalation BID and ProAir HFA 2 inhalations every 6 hours as needed (5) Vitamin D deficiency: Code(s): E55.9 - Vitamin D deficiency, unspecified Category: Medical Plan: Continue Vitamin D2 60025 units once a week (6) Splenomegaly: Code(s): R16.1 - Splenomegaly, not elsewhere classified Category: Medical Plan: This was seen/confirmed on imaging a few years ago Discussed with patient that this is mostly due to his chronic liver disease/liver failure and is the main reason for his thrombocytopenia (7) Thrombocytopenia: Code(s): D69.6 - Thrombocytopenia, unspecified Category: Medical Plan: Stable - is most likely related to his splenomegaly He was seen and evaluated previously by hematology - as patient is asymptomatic and his thrombocytopenia is stable with no acute bleeding issues, he was advised that he will just need to follow up with them only on an as-needed basis Will continue to monitor his platelet count and CBC regularly He has been cautioned to seek medical attention JOSE should he start experiencing increasing dyspnea, dizziness/lightheadedness or any chest pressure/discomfort/pain at any time (8) Liver cirrhosis: Code(s): K74.60 - Unspecified cirrhosis of liver Category: Medical Qualifiers: Hepatic cirrhosis type: unspecified hepatic cirrhosis Ascites presence: without ascites Qualified Code(s): K74.60 - Unspecified cirrhosis of liver Plan: Patient is now undergoing evaluation for liver transplant through [facility] in [place] Follow-up with GI as scheduled (9) History of hepatitis C: Code(s): Z86.19 - Personal history of other infectious and parasitic diseases Category: Medical Plan: S/P Tx - Hepatitis C viral load was negligible when last checked Follow up with [facility] [place] as scheduled for continuing follow up and surveillance (10) History of substance abuse: Code(s): F19.11 - Other psychoactive substance abuse, in remission Category: Medical Plan: Continue Suboxone 8-2 mg 2 films SL QD PRN Follow up with [facility] as scheduled (11) Insomnia: Code(s): G47.00 - Insomnia, unspecified Category: Medical Qualifiers: Insomnia type: unspecified Qualified Code(s): G47.00 - Insomnia, unspecified Plan: Sleep hygiene reinforced States that his Seroquel at bedtime helps with his sleep (12) Anxiety: Code(s): F41.9 - Anxiety disorder, unspecified Category: Medical Plan: He was taking Clonidine 0.1 mg TID PRN previously but states that he has been off this Rx for a while now and he is doing well currently with no additional Rx for his anxiety (13) Depression: Code(s): F32.9 - Major depressive disorder, single episode, unspecified Category: Medical Qualifiers: Depression Type: major depressive disorder Major depression recurrence: recurrent Active/Remission status: currently active Major depression episode severity: unspecified Qualified Code(s): F33.9 - Major depressive disorder, recurrent, unspecified Plan: Continue Quetiapine 200 mg Q HS Follow up with psychiatry as scheduled (14) Overweight (BMI 25.0-29.9): Code(s): E66.3 - Overweight Category: Medical Plan: Reinforced diet; exercise and weight loss are unrealistic given his comorb idities and chronic liver issues at present Plan Follow up in 3 months Orders: Orders Hemoglobin A1c 3 Months E11.9 - Type 2 diabetes mellitus without complications Complete Blood Count Auto Diff 3 Months D64.9 - Anemia, unspecified Comprehensive [place]. Panel Fast 3 Months E78.00 - Pure hypercholesterolemia, unspecified Microalbumin, Random (w Creat) 3 Months E11.9 - Type 2 diabetes mellitus without complications TSH reflex Free T4 3 Months E78.00 - Pure hypercholesterolemia, unspecified Vitamin B12 and Folate 3 Months E53.8 - Deficiency of other specified B group vitamins Lipid Panel 3 Months E78.00 - Pure hypercholesterolemia, unspecified UA CC w/rflx Micro + Cult 3 Months R30.0 - Dysuria Vitamin D 25-OH Total 3 Months E55.9 - Vitamin D deficiency, unspecified
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
== END 2025-10-12 16:28 | disposition home or self-care (01) ==
LOC: HO.HMCH 15:38
PROVIDERS: PCP Internal Medicine; Visit Provider Internal Medicine
DX: E11.65 Type 2 diabetes mellitus with hyperglycemia (principal); F19.11 Other psychoactive substance abuse, in remission; K74.60 Unspecified cirrhosis of liver; E78.2 Mixed hyperlipidemia; I10 Essential (primary) hypertension; J45.40 Moderate persistent asthma, uncomplicated; E66.3 Overweight; E55.9 Vitamin D deficiency, unspecified; R16.1 Splenomegaly, not elsewhere classified; D69.6 Thrombocytopenia, unspecified; Z68.28 Body mass index [BMI] 28.0-28.9, adult; Z86.19 Personal history of other infectious and parasitic diseases; G47.00 Insomnia, unspecified; F41.9 Anxiety disorder, unspecified; F33.9 Major depressive disorder, recurrent, unspecified

== ENCOUNTER → 2025-10-12 15:37 | Outpatient (BNVA) | payer OTHER, SELFPAY | PROVIDERS: PCP Internal Medicine; Visit Provider Internal Medicine | DX: E11.65 Type 2 diabetes mellitus with hyperglycemia (principal); E78.2 Mixed hyperlipidemia; I10 Essential (primary) hypertension; J45.40 Moderate persistent asthma, uncomplicated; E55.9 Vitamin D deficiency, unspecified; R16.1 Splenomegaly, not elsewhere classified; D69.6 Thrombocytopenia, unspecified; K74.60 Unspecified cirrhosis of liver; Z86.19 Personal history of other infectious and parasitic diseases; F19.11 Other psychoactive substance abuse, in remission; G47.00 Insomnia, unspecified; F41.9 Anxiety disorder, unspecified; F33.9 Major depressive disorder, recurrent, unspecified; E66.3 Overweight; Z68.28 Body mass index [BMI] 28.0-28.9, adult | CPT/HCPCS: 96127; 99212 ==